=== PATIENT | female | born 1950 | race Caucasian/White ===

== ENCOUNTER 2021-08-30 08:01 | Inpatient (IN) ==
--- NOTE | 2021-08-23 15:58 | Anesthesiology Consultation ---
Date of Service August 23, 2021 Assessment & Plan (1) Encounter for pre-operative examination: - will attempt to obtain last cardio note. - surgical complication: hallucinations s/p right ankle reconstruction (possibly related to anesthesia vs pain medication) ~2006. - COVID screening: Per cnmt on 08/23/2021: Travel screen negative, no known COVID-19 positive contacts or current COVID-19 related symptoms in past 2 weeks. Patient vaccinated. Surgeon arranging preop COVID testing, scheduled /2021. Awaiting results. Chart Review Chart Review: Pending: Refer to Additional Notes / Consult section and Patient NOT seen in Pre Admission Testing History Surgery Operation Date: 08/30/21 07:15 Proposed Procedures p Left Ankle Posterior Tibial Tendon Reconstruction with Flexor Digitorum Longus Tendon Transfer - DO leslie Cassidy Medializing Calcaneal Osteotomy - DO leslie Cassidy Lateral Column Lengthening with Autograft, Percutaneous Tendon Achilles Lengthening, - DO leslie Cassidy Iliac Crest Autograft [place] - Ramez Austin DO Surgery re-scheduled since 01/2021 anesthesia review. Height/Weight Height: 5 ft 3 in Weight: 86.183 kg Allergies Allergy/AdvReac Type Severity Reaction Status Date / Time duloxetine AdvReac Intermediate Nausea & Verified 08/23/21 10:52 abdominal pain oxycodone AdvReac Intermediate abdominal Verified 08/23/21 10:52 pain Medications Home Medications Medication Instructions Recorded Confirmed Last Taken chlorthalidone 25 mg tablet 12.5 mg PO HS 01/25/21 08/23/21 Unknown cholecalciferol (vitamin D3) 25 25 mcg PO HS 01/25/21 08/23/21 Unknown mcg (1,000 unit) capsule (Vitamin D3) cyanocobalamin (vitamin B-12) See Rx Instructions .ROUTE .COMPLEX 01/25/21 08/23/21 Unknown 1,000 mcg/mL injection solution gabapentin 100 mg capsule 100 mg PO QAM 01/25/21 08/23/21 Unknown gabapentin 300 mg capsule 300 mg PO HS 01/25/21 08/23/21 Unknown loratadine 10 mg tablet 10 mg PO HS 01/25/21 08/23/21 Unknown losartan 50 mg tablet 50 mg PO HS 01/25/21 08/23/21 Unknown trazodone 150 mg tablet 150 mg PO HS PRN 01/25/21 08/23/21 Unknown Past Medical History Medical History Chronic back pain 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 Nausea and vomiting after administration of anesthetic agent Osteoarthritis Pancreatitis (~1994) idiopathic No issues since Peripheral neuropathy Bilateral feet Past Family History Family History Other No family history of adverse response to anesthesia Past Surgical History Surgical History History of ankle surgery right ankle reconstruction History of cataract surgery bilateral History of cholecystectomy History of colonoscopy History of esophagogastroduodenoscopy (EGD) History of repair of rotator cuff left Hx of lumpectomy benign (left) S/P epidural steroid injection Social History Smoking Status: Never smoker Do You Dip or Chew Tobacco: No Hx Alcohol Use: Yes Alcohol type: wine alcohol intake frequency: holidays/special occasions only Hx Substance Use: No substance use type: does not use Lab Results Anesthesia Preop Results Results Anesthesia Widget: WBC 11.53 K/uL (4.8-10.8) H 08/15/21 Hgb 13.1 g/dL (12.0-16.0) 08/15/21 Hct 38.6 % (37-47) 08/15/21 Plt 255 K/uL (130-400) 08/15/21 Na 140 mmol/L (136-145) 08/15/21 K 3.4 mmol/L (3.5-5.1) L 08/15/21 Cl 103 mmol/L (98-107) 08/15/21 CO2 26 mmol/L (21-32) 08/15/21 BUN 15 mg/dl (6-23) 08/15/21 Creat 0.78 mg/dl (0.6-1.2) 08/15/21 Glucose Level 141 mg/dl (70-99(Fasting)) H 08/15/21 PT 10.4 Seconds (9.0-12.0) 08/15/21 PTT 26.3 Seconds (21.0-31.0) 08/15/21 INR 1.0 (0.9-1.1) 08/15/21 Testing Electrocardiogram Date: 01/31/21 NSR, rate 65 bpm LBBB Chest X-Ray Date: 01/31/21 FINDINGS: No pneumothorax. No pleural effusions. No focal lung consolidations to suggest pneumonia. No evidence for pulmonary edema. The heart is normal in size. Prior cholecystectomy. IMPRESSION: No acute process. Stress Test Date: 08/19/19 Type: nuclear MPHR not listed. Indication for stress test is left bundle branch block. Myocardial perfusion imaging is normal. Myocardial ischemia absent. Myocardial infarction absent. EF 57%. Wall motion is abnormal, there is abnormal septal motion. Overall impression: Myocardial effusion scan reveals a largely fixed, defect involving the basal and mid septal wall this is likely to be secondary to the underlying left bundle branch block CAD cannot be completely excluded.
--- NOTE | 2021-08-29 17:03 | History & Physical Report ---
Date of Service August 29, 2021 Assessment & Plan (1) Posterior tibial tendon dysfunction, left: Plan: Schedule a Left Ankle Posterior Tibial Tendon Reconstruction with Flexor Digitorum Longus Tendon Transfer, Medializing Calcaneal Osteotomy, Lateral Column Lengthening with Autograft, Percutaneous Tendon Achilles Lengthening, Left Iliac Crest Autograft [place] for 08.30.21. All potential risks, benefits, complications, alternatives, and rehab have been discussed with the patient and she wishes to proceed. Plan for ASA 81 mg BID x 4 wks for post op DVT prophylaxis. (2) Left tibialis posterior tendinitis: (3) Acquired pes planovalgus of left foot: (4) Contracture of left Achilles tendon: History of Present Illness Chief Complaint: left ankle pain and flat foot Primary Care Provider: Srikanth Uzair This is a patient with a long hx of hindfoot pain and worsening flat foot. She was treated conservatively but has failed all conservative management. She is now being set up for surgical management. Allergies Allergy/AdvReac Type Severity Reaction Status Date / Time duloxetine AdvReac Intermediate Nausea & Verified 08/23/21 10:52 abdominal pain oxycodone AdvReac Intermediate abdominal Verified 08/23/21 10:52 pain Home Medications Medication Instructions Recorded Confirmed Type chlorthalidone 25 mg tablet 12.5 mg PO HS 01/25/21 08/23/21 History cholecalciferol (vitamin D3) 25 25 mcg PO HS 01/25/21 08/23/21 History mcg (1,000 unit) capsule (Vitamin D3) cyanocobalamin (vitamin B-12) See Rx Instructions .ROUTE .COMPLEX 01/25/21 08/23/21 History 1,000 mcg/mL injection solution gabapentin 100 mg capsule 100 mg PO QAM 01/25/21 08/23/21 History gabapentin 300 mg capsule 300 mg PO HS 01/25/21 08/23/21 History loratadine 10 mg tablet 10 mg PO HS 01/25/21 08/23/21 History losartan 50 mg tablet 50 mg PO HS 01/25/21 08/23/21 History trazodone 150 mg tablet 150 mg PO HS PRN 01/25/21 08/23/21 History Past Med/Surg History Medical History Chronic back pain 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 Nausea and vomiting after administration of anesthetic agent Osteoarthritis Pancreatitis (~1994) idiopathic No issues since Peripheral neuropathy Bilateral feet Surgical History History of ankle surgery right ankle reconstruction History of cataract surgery bilateral History of cholecystectomy History of colonoscopy History of esophagogastroduodenoscopy (EGD) History of repair of rotator cuff left Hx of lumpectomy benign (left) S/P epidural steroid injection Family History Other No family history of adverse response to anesthesia Social History Smoking Status: Never smoker Second Hand Exposure: Yes (hx); Hx Alcohol Use: Yes Alcohol type: wine Hx Substance Use: No Preferred Language: Turkish Communication Ability: Effective 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: No Beliefs That Will Affect Care: None Current Living Situation: Spouse Feels Safe at Home: Yes Assistive Devices: Denture - Upper and Glasses Physical Exam Constitutional: well developed and well nourished; no acute distress ENMT: external ear and nose normal, oropharynx normal Neck: trachea midline Respiratory: normal respiratory effort, lungs clear to auscultation Cardiovascular: Rate/Rhythm: regular rate and regular rhythm Gastrointestinal (Abdomen): normal bowel sounds, soft, nontender, no hepatosplenomegaly Musculoskeletal: Ankle: + deformity (left pes planovalgus deformity), + limited ROM of ankle (weakness left inversion) and + joint line tenderness (ankle) (left PTT, sinus tarsi); no skin erythema and no ecchymosis Skin: no rashes, warm and dry Neurologic: normal touch/pain/proprioception Psychiatric: A+Ox3, euthymic affect Speech: normal rate/rhythm/volume of speech Lymphatic: no cervical or axillary lymphadenopathy
[~2021-08-30 08:01] MED LIST: BUPIVACAINE 0.5 % 5 MG/1 ML MPF 30ML VIAL ONE; BUPIVACAINE 0.5 % 5 MG/1 ML PF 10ML VIAL ONE; LR 15ML/HR IV SCH; ceFAZolin 2000MG 2,000 MG/15 ML SYR IV SCH
[2021-08-30] MEDS ORDERED: PROMETHAZINE HCL 12.5 MG in SODIUM CHLORIDE 0.9% 50 ML IV PRN (09:34)
[2021-08-30] MEDS ORDERED: ONDANSETRON INJ 2 MG/ML 2 ML VIAL IV PRN (09:34)
[2021-08-30] MEDS ORDERED: ePHEDrine sulfate 50 MG/ML AMP IV PRN (09:34)
[2021-08-30] MEDS ORDERED: ATROPINE SULFATE 0.1 MG/ML 10ML SYR IV PRN (09:34)
[2021-08-30] MEDS ORDERED: HYDROmorphone INJ 2 MG/ML SYR/VIAL IV PRN (09:34)
[2021-08-30] MEDS ORDERED: PROPOFOL IV EMULSION 10 MG/ML 20 ML VIAL IV ONE (09:45)
[2021-08-30] MEDS ORDERED: ROCURONIUM BROMIDE 10 MG/ML 5 ML VIAL IV ONE (09:45)
[2021-08-30] MEDS ORDERED: LIDOCAINE 2% 2 ML VIAL/AMP(20MG/ML) INFIL ONE (09:45)
[2021-08-30] MEDS ORDERED: fentaNYL citrate 100 MCG/2 ML VIAL ONE (09:46)
[2021-08-30] MEDS ORDERED: MIDAZOLAM HCL 1 MG/ML 2ML VIAL ONE ×2 (09:46→10:41)
--- NOTE | 2021-08-30 10:30 | History & Physical Bridge Note ---
Date of Service August 30, 2021 History & Physical Bridge Note I have examined the patient, reviewed the History & Physical and in the interval since the performance of the History & Physical I have noted the following changes of clinical significance: no changes noted
[2021-08-30] MEDS ORDERED: MoRPHine SULFATE PF 1 MG/ML 10 ML AMP/VIAL ONE (11:18)
[2021-08-30] MEDS ORDERED: THROMBIN FOR SOLN 20000 UNIT KIT ONE (11:27)
[2021-08-30] MEDS ORDERED: ceFAZolin 330 MG/ML 1 GM VIAL ONE (11:27)
[2021-08-30] MEDS ORDERED: GELATIN SPONGE SZ 100 ONE (11:27)
[2021-08-30] MEDS ORDERED: BUPIVACAINE/EPINEPHRINE 0.25% 1:200,000 30 ML VIAL ONE (11:28)
[2021-08-30] MEDS ORDERED: GLYCOPYRROLATE 0.2 MG/ML VIAL ONE (13:41)
[2021-08-30] MEDS ORDERED: NEOSTIGMINE METHYLSULFATE 1 MG/ML 10ML VIAL ONE (13:41)
--- NOTE | 2021-08-30 14:14 | Post Operative Brief Note ---
Immediate Post Op Note v1 Date of Surgery August 30, 2021 Pre & Post Diagnosis Operation Date: 08/30/21 09:25 Pre-Op Diagnosis: (1) Posterior tibial tendon dysfunction, left: (2) Left tibialis posterior tendinitis: (3) Acquired painful pes planovalgus of left foot: (4) Contracture of left Achilles tendon: Post-Op Diagnosis: (1) Posterior tibial tendon dysfunction, left: (2) Left tibialis posterior tendinitis: (3) Acquired painful pes planovalgus of left foot: (4) Contracture of left Achilles tendon: I identified the patient and participated in the time-out.: Yes Procedure Operation Date: 08/30/21 09:25 Actual Procedures p Left Ankle Posterior Tibial Tendon Reconstruction with Flexor Digitorum Longus Tendon Transfer(Left) - DO leslie Cassidy Medializing Calcaneal Osteotomy(Left) - DO leslie Cassidy Lateral Column Lengthening with Autograft, Percutaneous Tendon Achilles Lengthening,(Left) - DO leslie Cassidy Iliac Crest Autograft [place](Left) - Ramez Austin DO Surgeon Ramez Austin DO Mobile Home Laborer Yong Valentin PA-C Estimated Blood Loss 2 Findings Consistent with Post-Op Diagnosis Anesthesia Type General Regional Complications none Disposition Accompanied Patient To Recovery: No
--- NOTE | 2021-08-30 14:27 | Fluoroscopy Report ---
FL ankle LT 2V CLINICAL HISTORY: LT CALCANEAL OSTEOTOMY COMPARISON STUDY: None. FLUOROSCOPY TIME: 13 seconds. FLUOROSCOPIC IMAGES: 2 FINDINGS: Fluoroscopy was provided during left calcaneal osteotomy with screw fixation. Expected post operative findings are noted. Skin allie are present. Hardware is intact. No unexpected radiopaque foreign bodies are identified. IMPRESSION: Fluoroscopy provided during left calcaneal osteotomy. ACT 112: Negative or not required by law. Electronically signed by: Jacob Castaneda M.D. 08/30/2021 2:25 PM
--- NOTE | 2021-08-30 14:48 | Operative Report (OR) ---
DATE OF PROCEDURE: 08/30/2021. PREOPERATIVE DIAGNOSES: 1. Left posterior tibial tendon dysfunction grade II. 2. Posterior tibial tendinitis. 3. Painful acquired pes planovalgus deformity. 4. Achilles tendon contracture. POSTOPERATIVE DIAGNOSES: 1. Left posterior tibial tendon dysfunction grade II. 2. Posterior tibial tendinitis. 3. Painful acquired pes planovalgus deformity. 4. Achilles tendon contracture. PROCEDURES: 1. Left posterior tibial tendon reconstruction with flexor digitorum longus tendon transfer. 2. Medialized and calcaneal osteotomy with screw fixation. 3. Lateral column calcaneal lengthening with autograft. 4. Percutaneous tendo-Achilles lengthening. 5. Left iliac crest autograft harvest. SURGEON: Ramez Austin DO AUTOMOTIVE ENGINEERING TECHNICIAN: Yong Valentin PA-C, who was present for patient positioning, sterile prep and drape, management of retractors and instruments. He was present through the critical portions of the case including wound closure, application of sterile dressing and transport of the patient to recovery. ANESTHESIA: General, regional. SPECIMENS: None. DRAINS: None. COMPLICATIONS: None. BLOOD LOSS: 2 mL. PERTINENT HISTORY: This is a 71-year-old female who has had chronic progressive and was worsening medial and lateral hindfoot pain with deformity. She had progressive chronic worsening deformity of the left foot with sharp medial-sided pain related to posterior tibial tendinitis with posterior tibial tendinopathy and partial tearing confirmed with x-rays and MRI noting posterior tibial tendinopathy with tearing and flattening of the medial arch. The patient attempted and failed conservative management including shoewear modification, activity modification, anti-inflammatories, rest, physical therapy, shoe modifications, use of a brace, and use of an assistive device. The patient failed physical therapy on several occasions. The patient was scheduled for surgery as indicated. All potential risks, benefits, complications, alternatives, rehab potential for incomplete relief of symptoms, need for further surgery, DVT, PE, , persistent pain, swelling, scarring, weakness, neurovascular injury, wound complications, hardware failure, nonunion, malunion and bone fracture were discussed with the patient. The patient decided to proceed with the procedure as indicated. DESCRIPTION OF PROCEDURE: The patient was taken to the operative suite. The consent was reviewed and surgical site was identified. The patient had undergone a popliteal block regional and then transferred to the Operating Room table. Tourniquet was placed high on the left thigh over cast padding. Left iliac crest and left lower extremity were then sterilely prepped and draped in usual fashion. The left lower extremity was then elevated and exsanguinated with Esmarch bandage, tourniquet inflated to 350 mmHg. Next, left foot was held in dorsiflexion. A 11 blade scalpel was used to perform a three part percutaneous tendo Achilles lengthening and then the small stab incisions were then closed with a skin stapler. Next, a 15 blade scalpel was used to make an incision in oblique fashion on the lateral aspect of the left calcaneus. The incision was deepened to subcutaneous tissue. Meticulous hemostasis with electrocautery. Full thickness flaps were developed. Next, periosteum was elevated with small periosteal elevator. Hohmann retractors were placed and a sagittal saw was used to perform the osteotomy in the posterior aspect of the calcaneus. Tuberosity was then shifted medially and then stabilized with a guide pin from the 7.3 mm cannulated screw set under fluoroscopic control. Next, a short thread 7.3 mm cannulated screw 55 mm in length was then placed over the guide pin and then used to compress the osteotomy under fluoroscopic control. Next, the guide pin was removed. The wound was irrigated with sterile Normal Saline and the dermis was closed using buried 3-0 Vicryl sutures and the skin was closed using 4-0 Nylon. Next, a 15 blade scalpel incision was made over the anterior process of the calcaneus and lateral calcaneus, the incision deepened through subcutaneous tissue, meticulous hemostasis with electrocautery. The extensor digitorum brevis was identified, incised and then elevated both superiorly and inferiorly. Peroneal tendon sheath was elevated and Hohmann retractors were placed in the sinus tarsi and then the inferior aspect of the calcaneus. A sagittal saw was used to make an osteotomy approximately 1.5 cm proximal to the calcaneal cuboid joint. Smooth osteotomes were placed into the osteotomy to open the osteotomy site and then a cervical lamina associate producer was placed in the opening. The opening of the calcaneal osteotomy was then measured and the cervical lamina associate producer was then removed from the osteotomy and a moist lap was placed over the foot. Next, after injection of the left iliac crest with approximately 15 mL of 0.5% Marcaine with Epinephrine a 15 blade scalpel incision was made over the iliac crest approximately 1 cm proximal to the ASIS. This was deepened to subcutaneous tissue with electrocautery down to the level of the fascia. Fascia was incised in line with the skin incision and then the iliac crest was clearly visualized, soft tissue and fascia was elevated medially and laterally. Small Bunn retractors were placed in the inner and outer table of the iliac crest. It was irrigated with sterile Normal Saline. Appropriate length of bone wedge was measured and marked with electrocautery and then a sagittal saw was used to resect the appropriate width trapezoidal tricortical graft from the pelvis. Next, after irrigation and suction the graft was then placed on the back table and a small amount of cancellous graft was excised from the iliac crest. The wound was then finally irrigated with Sterile Normal Saline. The defect in the iliac crest was then packed with Gelfoam and Thrombin. This was then closed with the fascia overlying the iliac crest with #1 Vicryl sutures. Next, this was injected with 1 mL of Duramorph and 5 mL of 0.5% Marcaine with Epinephrine. The dermis was closed using buried interrupted 2-0 Vicryl sutures and the skin was closed using skin allie. Approximately 5 more mL of 0.5% Marcaine with Epinephrine was injected. No oozing or bleeding was encountered and a sterile compressive dry dressing was applied overwrapped with an OpSite. Next, the graft was then placed in the lateral osteotomy of the foot to lengthen the lateral column using a cervical lamina associate producer to span the osteotomy. After the graft was tamped in place with a bone tamp and mallet the cervical lamina associate producer was removed. Next, the adjacent bone graft obtained from the iliac crest was then packed around the tricortical graft and then the graft was then stabilized with a single fully threaded 4.0 mm small fragment screw placed under lag technique compressing the graft in place. Next, the 2-0 Vicryl suture was used to close the extensor digitorum brevis and the dermis was closed using buried interrupted 3-0 Vicryl. Skin was closed using 4-0 Nylon sutures. Next, a 15 blade scalpel was used to make a long curvilinear incision along the medial aspect of the hind foot overlying the posterior tibial tendon. The incision was deepened to subcutaneous tissue. Meticulous hemostasis achieved with electrocautery. The incision was extended to the first metatarsal head. Next, after incision of the lacinate ligament the flexor retinaculum was encountered. This was incised in line with skin incision overlying the posterior tibial tendon. The posterior tibial tendon was clearly visualized. Tenotomy scissors were then used to complete the release of the flexor retinaculum and the posterior tibial tendon was then elevated sharply with combination of electrocautery and 15 blade scalpel from its insertion on the navicular. The damaged portion of the tendon distally was then resected and then a whip stitch was placed with #2 FiberWire suture in the distal aspect of the posterior tibial tendon. Next, dissection was continued in the mid foot in the interval between the first metatarsal and the abductor hallucis. A Ulysses retractor was placed in the wound and then after careful dissection the master knot of Urbano was released and the flexor digitorum longus and flexor hallucis longus were clearly visualized distally. Tenodesis was performed with interrupted #2 FiberWire suture with toes held in neutral alignment in line with the metatarsals. Next, a whip stitch was placed in the distal aspect of the FDL tendon and then the FDL was then released distally to allow it to be retracted proximally posterior to the medial malleolus after a small cut was made in the FDL sheath posterior to the medial malleolus. After the tendon was withdrawn posteriorly, the soft tissues were elevated from the medial navicular and a 4.5 mm drill hole was made in the medial navicular. A Hayden suture passer was used to transfer the tendon from the plantar to the dorsal aspect of the navicular. It was then sutured back down to itself using a sharp tendon passer and a Pulvertaft weave technique with #2 fiber wire suture. Several passes were made and then this was then incorporated into the posterior tibial tendon. Next, free needle was used to tie the ends of the posterior tibial tendon and FDL tendon into the adjacent tendons. Sutures were then tied and cut. The wound was irrigated with Sterile Normal Saline. Deep drain was placed, a #10 [place] single Hemovac drain medially and then the flexor sheath was closed using interrupted 2-0 Vicryl sutures. The interval between the first metatarsal and the abductors were closed using interrupted 2-0 Vicryl sutures. The dermis was closed using buried interrupted 3-0 Vicryl suture and skin closed with 4-0 Nylon. A sterile compressive [place] Guerrero plaster splint was applied and wrapped with an Kirt wrap with the foot held in slight equinus and inversion. The tourniquet was released, patient awakened and taken to recovery in stable condition. Job ID: [id number] [facility]
[2021-08-30] MEDS: fentaNYL citrate 100 MCG/2 ML VIAL IV PRN ×4 (14:55→15:15)
[2021-08-30] MEDS ORDERED: NALOXONE HCL 0.4 MG/1 ML VIAL/CARP IV PRN (15:53)
[2021-08-30] MEDS ORDERED: diphenhydrAMINE Capsule 25 MG CAP PO PRN (15:53)
[2021-08-30] MEDS ORDERED: METOCLOPRAMIDE HCL INJ 5 MG/ML 2 ML VIAL IV PRN (15:53)
[2021-08-30] MEDS ORDERED: ALUMINUM/MAGNESIUM SUSP 30 ML UDC PO PRN (15:53)
[2021-08-30] MEDS ORDERED: NO NSAIDS SCH (15:53)
[2021-08-30] MEDS ORDERED: MAGNESIUM HYDROXIDE SUSP 30 ML UDC PO PRN (15:53)
[2021-08-30] MEDS ORDERED: oxyCODONE HCL IR 5 MG TAB (IMMEDIATE RELEASE) PO PRN (15:53)
[2021-08-30] MEDS ORDERED: bisacodyL 10 MG SUPP PR PRN (15:53)
[2021-08-30] MEDS ORDERED: traZODone HCL 50 MG TAB PO PRN (15:53)
--- NOTE | 2021-08-30 16:05 | Anesthesiology Progress Note ---
Date of Service August 30, 2021 Anesthesia Post Procedure Vital Signs Vital Signs: Temp Pulse Pulse Resp BP Pulse Ox 08/30/21 15:30 36.4 C L 70 16 126/85 96 08/30/21 15:20 36.4 C L 77 14 125/74 97 08/30/21 15:10 57 L 11 L 124/74 98 08/30/21 15:00 71 15 150/75 H 100 08/30/21 14:50 75 15 117/76 100 08/30/21 14:40 73 16 156/90 H 100 08/30/21 14:33 36.3 C L 75 16 149/90 H 100 08/30/21 08:29 37.1 C 85 20 148/83 H 98 Pain Intensity Left Hip: Pain Intensity: 3 Transfer of Care Handoff Completed per policy Notes Mental Status: alert / awake / arousable and participated in evaluation Patient Amnestic to Procedure: Yes Nausea / Vomiting: adequately controlled Pain: adequately controlled Airway Patency, RR, SpO2: stable & adequate BP & HR: stable & adequate Hydration State: stable & adequate Anesthetic Complications: no major complications apparent and Pt Satisfied with anesthetic care
[2021-08-30] MEDS: SODIUM CHLORIDE 0.9% 1000ML 1,000 ML IV SCH (16:11)
[2021-08-30] MEDS: ACETAMINOPHEN 500 MG TAB PO SCH ×2 (16:29→23:43)
[2021-08-30] MEDS: HYDROmorphone INJ 0.5 MG/0.5 ML SYR IV PRN (16:40)
[2021-08-30] MEDS: ceFAZolin 2000MG 2,000 MG/15 ML SYR IV SCH (19:58)
[2021-08-30] MEDS: ONDANSETRON INJ 2 MG/ML 2 ML VIAL IV PRN (20:05)
[2021-08-30] MEDS: LOSARTAN POTASSIUM 50 MG TAB PO SCH (20:50)
[2021-08-30] MEDS: CHOLECALCIFEROL 1,000 UNITS 25 MCG TAB PO SCH (20:51)
[2021-08-30] MEDS: ASPIRIN 81 MG ECTAB PO SCH (20:51)
[2021-08-30] MEDS: LORATADINE 10 MG TAB PO SCH (20:51)
[2021-08-30] MEDS: SENNA 8.6 MG TAB PO SCH (20:51)
[2021-08-30] MEDS: GABAPENTIN 300 MG CAP PO SCH (20:51)
[2021-08-30] MEDS: DOCUSATE SODIUM 100 MG CAP PO SCH (20:51)
[2021-08-30] MEDS: HYDROCODONE/ACETAMOPHEN 5/325MG TAB PO PRN (20:53)
[2021-08-30] MEDS: CHLORTHALIDONE 25 MG TAB PO SCH (20:56)
[2021-08-31] MEDS: SODIUM CHLORIDE 0.9% 1000ML 1,000 ML IV SCH (02:24)
[2021-08-31] MEDS: ceFAZolin 2000MG 2,000 MG/15 ML SYR IV SCH (03:31)
[2021-08-31] MEDS: HYDROCODONE/ACETAMOPHEN 5/325MG TAB PO PRN ×3 (03:34→20:22)
[2021-08-31] MEDS: ACETAMINOPHEN 500 MG TAB PO SCH ×3 (06:03→23:18)
[2021-08-31 07:30] LABS: Hematocrit (blood only) 34.6 % (37-47); Hemoglobin 11.6 g/dL (12.0-16.0); Mean Corpuscular Hgb Conc 33.5 g/dL (32-36); Mean Corpuscular Volume 92.5 fL (80-100); Mean Platelet Volume 10.1 fL (7.4-10.4); Platelet Count 226 K/uL (130-400); RDW Coefficient of Variation 14.3 % (11.5-14.5); RDW Standard Deviation 48.2 fL (36.4-46.3); Red Blood Count 3.74 M/uL (4.2-5.4); White Blood Count 13.69 K/uL (4.8-10.8)
[2021-08-31 08:06] LABS: BUN Creatinine Ratio 14.9 (10-20); Calcium 8.9 mg/dl (8.5-10.1); Creatinine Clr Calc Pharmacy 74.1 ml/min; Est GFR (African American) 95.1 ml/min; Est GFR (Non-African American) 82.1 ml/min; Potassium 3.7 mmol/L (3.5-5.1)
--- NOTE | 2021-08-31 08:30 | Orthopedic Progress Note ---
Date of Service August 31, 2021 Assessment & Plan (1) Posterior tibial tendon dysfunction, left: Plan: POD #1 s/p 1. Left posterior tibial tendon reconstruction with flexor digitorum longus tendon transfer. 2. Medialized and calcaneal osteotomy with screw fixation. 3. Lateral column calcaneal lengthening with autograft. 4. Percutaneous tendo-Achilles lengthening. 5. Left iliac crest autograft harvest PT/OT--nonweightbearing on the left lower extremity at all times. Pain controlIV Dilaudid for more severe pain, oral hydrocodone/Tylenol as needed. DVT prophylaxisaspirin 81 mg twice daily, knee-high Roberto stocking on the right lower extremity. Discharge planningthe patient has concerns of going home without any help. Her is in his late 70s and her daughter is now helping to help her father who is hospitalized. She would benefit from home health. If she does well with PT and her left pelvis pain improves, she may be able to be discharged home today with home health. (2) Left tibialis posterior tendinitis: (3) Acquired pes planovalgus of left foot: (4) Contracture of left Achilles tendon: Admission and Anticipated Discharge Date Admission Date: August 30, 2021 Subjective Patient states her left ankle still numb. No pain within the ankle or lower leg. Most of her pain last night and this morning has been in her left pelvis. She is having difficulties with shifting positions because of the left pelvis/abdominal pain. Denies chest pain, shortness of breath, lightheadedness. No other complaints today. Physical Exam Constitutional: well developed and well nourished; no acute distress ENMT: external ear and nose normal, oropharynx normal Neck: trachea midline Respiratory: normal respiratory effort, lungs clear to auscultation Cardiovascular: Rate/Rhythm: regular rate and regular rhythm Gastrointestinal (Abdomen): normal bowel sounds, soft, nontender, no hepatosplenomegaly Musculoskeletal: Hip: + surgical incision (Left pelvis: Dressing is C/D/I. Her abdomen is soft. No evidence of hemat) Ankle: + surgical incision (Left ankle: Well-padded splint is C/D/I) and + limited ROM of ankle (No range of motion of left toes secondary to regional block); no skin erythema and no ecchymosis Skin: no rashes, warm and dry Neurologic: normal touch/pain/proprioception Psychiatric: A+Ox3, euthymic affect Speech: normal rate/rhythm/volume of speech Lymphatic: no cervical or axillary lymphadenopathy Results & Data ([facility]) Vital Signs (Past 12 Hours) Vital Signs Temp Pulse Resp BP Pulse Ox 08/31/21 07:00 36.9 C 75 18 117/74 92 08/31/21 03:18 37.2 C 81 18 120/73 93 08/30/21 22:42 37.2 C 80 18 126/83 92 Laboratory Results Laboratory Tests 08/31/21 08/31/21 07:12 07:12 WBC 13.69 H Hgb 11.6 L Hct 34.6 L Sodium 140 Potassium 3.7 BUN 11 Creatinine 0.74
[2021-08-31] MEDS: MULTIVITAMIN TAB PO SCH (09:32)
[2021-08-31] MEDS: ASPIRIN 81 MG ECTAB PO SCH ×2 (09:32→21:13)
[2021-08-31] MEDS: DOCUSATE SODIUM 100 MG CAP PO SCH ×2 (09:32→21:14)
[2021-08-31] MEDS: GABAPENTIN 100 MG CAP PO SCH (09:33)
[2021-08-31] MEDS: HYDROmorphone INJ 0.5 MG/0.5 ML SYR IV PRN ×4 (11:20→23:46)
[2021-08-31] MEDS: ONDANSETRON INJ 2 MG/ML 2 ML VIAL IV PRN (17:57)
[2021-08-31] MEDS: LORATADINE 10 MG TAB PO SCH (21:13)
[2021-08-31] MEDS: GABAPENTIN 300 MG CAP PO SCH (21:14)
[2021-08-31] MEDS: CHLORTHALIDONE 25 MG TAB PO SCH (21:14)
[2021-08-31] MEDS: CHOLECALCIFEROL 1,000 UNITS 25 MCG TAB PO SCH (21:14)
[2021-08-31] MEDS: SENNA 8.6 MG TAB PO SCH (21:15)
[2021-08-31] MEDS: LOSARTAN POTASSIUM 50 MG TAB PO SCH (21:15)
[2021-09-01] MEDS ORDERED: KETOROLAC TROMETHAMINE 15 MG/ML VIAL IM STA (00:21)
[2021-09-01] MEDS ORDERED: HYDROCODONE/ACETAMOPHEN 5/325MG TAB PO STA (00:22)
[2021-09-01] MEDS: ACETAMINOPHEN 500 MG TAB PO SCH ×3 (06:13→21:27)
[2021-09-01] MEDS: HYDROmorphone INJ 0.5 MG/0.5 ML SYR IV PRN ×2 (06:15→17:13)
--- NOTE | 2021-09-01 08:47 | Orthopedic Progress Note ---
Date of Service September 01, 2021 Assessment & Plan (1) Posterior tibial tendon dysfunction, left: Plan: POD #2 s/p 1. Left posterior tibial tendon reconstruction with flexor digitorum longus tendon transfer. 2. Medialized and calcaneal osteotomy with screw fixation. 3. Lateral column calcaneal lengthening with autograft. 4. Percutaneous tendo-Achilles lengthening. 5. Left iliac crest autograft harvest PT/OT--nonweightbearing on the left lower extremity at all times. Pain controlIV Dilaudid for more severe pain, oral hydrocodone/Tylenol as needed. We will add oral MS Contin today. DVT prophylaxisaspirin 81 mg twice daily, knee-high Roberto stocking on the right lower extremity. Discharge planninghome with home health. If pain remained controlled throughout the morning, she may be able to be discharged this afternoon. (2) Left tibialis posterior tendinitis: (3) Acquired pes planovalgus of left foot: (4) Contracture of left Achilles tendon: Admission and Anticipated Discharge Date Admission Date: August 30, 2021 Subjective Patient states she had a lot of pain last night. She was unable to get it controlled with oral medication. She had IM Toradol last night and states that the pain started to come down approximately 2:30 this morning. She was able to rest until approximately 6 AM. She started to have some pain in the foot again this morning. Physical Exam Constitutional: well developed and well nourished; no acute distress ENMT: external ear and nose normal, oropharynx normal Neck: trachea midline Respiratory: normal respiratory effort, lungs clear to auscultation Cardiovascular: Rate/Rhythm: regular rate and regular rhythm Gastrointestinal (Abdomen): normal bowel sounds, soft, nontender, no hepatosplenomegaly Musculoskeletal: Hip: + surgical incision (Left pelvis: Dressing is C/D/I. Her abdomen is soft. No evidence of hemat) Ankle: + surgical incision (Left ankle: Well-padded splint is C/D/I) and + limited ROM of ankle (No range of motion of left toes secondary to regional block); no skin erythema and no ecchymosis Skin: no rashes, warm and dry Neurologic: normal touch/pain/proprioception Psychiatric: A+Ox3, euthymic affect Speech: normal rate/rhythm/volume of speech Lymphatic: no cervical or axillary lymphadenopathy Results & Data ([facility]) Vital Signs (Past 12 Hours) Vital Signs Temp Pulse Pulse Resp BP Pulse Ox 09/01/21 07:40 36.9 C 81 16 130/76 93 08/31/21 23:23 37.1 C 99 H 18 142/71 H 96
[2021-09-01] MEDS: MoRPHine SULFATE CR 15 MG TABCR PO SCH ×2 (09:18→21:26)
[2021-09-01] MEDS: MULTIVITAMIN TAB PO SCH (09:18)
[2021-09-01] MEDS: ASPIRIN 81 MG ECTAB PO SCH ×2 (09:18→21:21)
[2021-09-01] MEDS: DOCUSATE SODIUM 100 MG CAP PO SCH ×2 (09:18→21:21)
[2021-09-01] MEDS: GABAPENTIN 100 MG CAP PO SCH (09:18)
[2021-09-01] MEDS: ONDANSETRON INJ 2 MG/ML 2 ML VIAL IV PRN (11:13)
[2021-09-01] MEDS: HYDROCODONE/ACETAMOPHEN 5/325MG TAB PO PRN ×2 (14:47→20:02)
[2021-09-01] MEDS: LORATADINE 10 MG TAB PO SCH (21:20)
[2021-09-01] MEDS: CHLORTHALIDONE 25 MG TAB PO SCH (21:20)
[2021-09-01] MEDS: SENNA 8.6 MG TAB PO SCH (21:21)
[2021-09-01] MEDS: CHOLECALCIFEROL 1,000 UNITS 25 MCG TAB PO SCH (21:22)
[2021-09-01] MEDS: GABAPENTIN 300 MG CAP PO SCH (21:22)
[2021-09-01] MEDS: LOSARTAN POTASSIUM 50 MG TAB PO SCH (21:23)
[2021-09-02] MEDS: HYDROCODONE/ACETAMOPHEN 5/325MG TAB PO PRN ×3 (02:58→22:49)
[2021-09-02] MEDS: ACETAMINOPHEN 500 MG TAB PO SCH ×3 (05:50→22:49)
[2021-09-02] MEDS: GABAPENTIN 100 MG CAP PO SCH (08:21)
[2021-09-02] MEDS: DOCUSATE SODIUM 100 MG CAP PO SCH ×2 (08:21→20:54)
[2021-09-02] MEDS: MoRPHine SULFATE CR 15 MG TABCR PO SCH ×2 (08:21→20:54)
[2021-09-02] MEDS: ASPIRIN 81 MG ECTAB PO SCH ×2 (08:22→20:54)
--- NOTE | 2021-09-02 08:50 | Orthopedic Progress Note ---
Date of Service September 02, 2021 Assessment & Plan (1) Posterior tibial tendon dysfunction, left: Plan: POD #3 s/p 1. Left posterior tibial tendon reconstruction with flexor digitorum longus tendon transfer. 2. Medialized and calcaneal osteotomy with screw fixation. 3. Lateral column calcaneal lengthening with autograft. 4. Percutaneous tendo-Achilles lengthening. 5. Left iliac crest autograft harvest PT/OT--nonweightbearing on the left lower extremity at all times. Pain controlIV Dilaudid for more severe pain, oral hydrocodone/Tylenol as needed. Oral MS Contin was added yesterday. DVT prophylaxisaspirin 81 mg twice daily, knee-high Roberto stocking on the right lower extremity. Discharge planninghome with home health. Likely plan on discharge home tomorrow. (2) Left tibialis posterior tendinitis: (3) Acquired pes planovalgus of left foot: (4) Contracture of left Achilles tendon: Admission and Anticipated Discharge Date Admission Date: August 30, 2021 Supervising Physician Co-Signing Physician Notes Patient seen and examined. Agree with ORACIO Paiz's note as above. She reports progressive improvement in her pain, but still feels like she is not ready to go home. Subjective Patient is postop day 3. Pain yesterday. Her pain seems to be improved from yesterday and had a better night than the night before. She is concerned about going home today. Therapy saw her yesterday and is recommending patient rehab however patient desires to go home. Review of Systems Review of Systems: All systems reviewed & are unremarkable except as noted in Subjective Physical Exam Physical Exam: Left leg: dressings and splint are clean dry and intact. Toes are mobile. No calf tenderness. Distally neurovascular status intact. Cap refill less than 3 seconds. She has decreased sensation at her baseline due to history of neuropathy. Constitutional: WD/WN, vitals as above Results & Data ([facility]) Vital Signs (Past 12 Hours) Vital Signs Temp Pulse Resp BP Pulse Ox 09/02/21 08:09 36.6 C 72 17 115/74 92 09/01/21 22:34 36.7 C 69 15 116/75 93 09/01/21 21:18 80 114/75
[2021-09-02] MEDS: MULTIVITAMIN TAB PO SCH (09:21)
[2021-09-02] MEDS: ONDANSETRON INJ 2 MG/ML 2 ML VIAL IV PRN (09:42)
[2021-09-02] MEDS: LORATADINE 10 MG TAB PO SCH (20:54)
[2021-09-02] MEDS: GABAPENTIN 300 MG CAP PO SCH (20:54)
[2021-09-02] MEDS: CHOLECALCIFEROL 1,000 UNITS 25 MCG TAB PO SCH (20:54)
[2021-09-02] MEDS: LOSARTAN POTASSIUM 50 MG TAB PO SCH (20:54)
[2021-09-02] MEDS: SENNA 8.6 MG TAB PO SCH (20:54)
[2021-09-02] MEDS: CHLORTHALIDONE 25 MG TAB PO SCH (20:54)
[2021-09-03] MEDS ORDERED: MoRPHine SULFATE CR 15 MG TABCR PO SCH
[2021-09-03] MEDS ORDERED: NORCO 5/325MG HOMEPACK PO SCH
[2021-09-03] MEDS: ACETAMINOPHEN 500 MG TAB PO SCH ×2 (06:03→13:01)
[2021-09-03] MEDS: ASPIRIN 81 MG ECTAB PO SCH (07:46)
[2021-09-03] MEDS: DOCUSATE SODIUM 100 MG CAP PO SCH (07:47)
[2021-09-03] MEDS: MULTIVITAMIN TAB PO SCH (07:47)
[2021-09-03] MEDS: MoRPHine SULFATE CR 15 MG TABCR PO SCH (07:47)
[2021-09-03] MEDS: GABAPENTIN 100 MG CAP PO SCH (07:47)
--- NOTE | 2021-09-03 10:11 | Orthopedic Progress Note ---
Date of Service September 03, 2021 Assessment & Plan (1) Posterior tibial tendon dysfunction, left: Plan: POD #4 s/p 1. Left posterior tibial tendon reconstruction with flexor digitorum longus tendon transfer. 2. Medialized and calcaneal osteotomy with screw fixation. 3. Lateral column calcaneal lengthening with autograft. 4. Percutaneous tendo-Achilles lengthening. 5. Left iliac crest autograft harvest PT/OT--nonweightbearing on the left lower extremity at all times. Pain controlIV Dilaudid for more severe pain, oral hydrocodone/Tylenol as needed. Oral MS Contin was added yesterday. DVT prophylaxisaspirin 81 mg twice daily, knee-high Roberto stocking on the right lower extremity. Discharge planninghome with home health. Will see how she responds to therapy today, if safe to go home plan on d/c home today. (2) Left tibialis posterior tendinitis: (3) Acquired pes planovalgus of left foot: (4) Contracture of left Achilles tendon: Admission and Anticipated Discharge Date Admission Date: September 02, 2021 Subjective Patient is postop day 4. Her pain seems to be improving. States has a lot of pain when leg is in dependent position. Therapy has recommending inpatient rehab however patient refusing and wants to go home due to her being home. She has intermittent nausea, otherwise denies chest pain, sob, headache, fever/chills, vomiting, diarrhea. Review of Systems Review of Systems: All systems reviewed & are unremarkable except as noted in Subjective Physical Exam Physical Exam: Left leg: dressings and splint are clean dry and intact. Toes are mobile. No calf tenderness. Distally neurovascular status intact. Cap refill less than 3 seconds. She has decreased sensation at her baseline due to history of neuropathy. Left hip incision c/d/i, no erythema. Constitutional: WD/WN, vitals as above Results & Data ([facility]) Vital Signs (Past 12 Hours) Vital Signs Temp Pulse Resp BP Pulse Ox 09/03/21 07:33 36.7 C 72 16 107/72 97 09/02/21 22:38 37.0 C 78 15 123/77 91
[2021-09-03] MEDS: HYDROCODONE/ACETAMOPHEN 5/325MG TAB PO PRN ×2 (11:51→16:10)
--- NOTE | 2021-09-06 16:52 | Discharge Summary ---
Date of Service September 06, 2021 Admission HPI Per Admitting Provider This is a patient with a long hx of hindfoot pain and worsening flat foot. She was treated conservatively but has failed all conservative management. She is now being set up for surgical management. Principal Diagnosis left posterior tibial tendon dysfunction Discharge Exam Constitutional well developed and well nourished; no acute distress ENMT external ear and nose normal, oropharynx normal Neck trachea midline Respiratory normal respiratory effort, lungs clear to auscultation Cardiovascular Rate/Rhythm: regular rate and regular rhythm Gastrointestinal (Abdomen) normal bowel sounds, soft, nontender, no hepatosplenomegaly Musculoskeletal Hip: + surgical incision (Left pelvis: Dressing is C/D/I. Her abdomen is soft. No evidence of hemat) Ankle: + surgical incision (Left ankle: Well-padded splint is C/D/I) and + limited ROM of ankle (No range of motion of left toes secondary to regional block); no skin erythema and no ecchymosis Skin no rashes, warm and dry Neurologic normal touch/pain/proprioception Psychiatric A+Ox3, euthymic affect Speech: normal rate/rhythm/volume of speech Lymphatic no cervical or axillary lymphadenopathy Discharge Data Allergies Allergy/AdvReac Type Severity Reaction Status Date / Time duloxetine AdvReac Intermediate Nausea & Verified 08/30/21 08:25 abdominal pain oxycodone AdvReac Intermediate abdominal Verified 08/30/21 08:25 pain Procedures Performed Operation Date: 08/30/21 09:25 Actual Procedures p Left Ankle Posterior Tibial Tendon Reconstruction with Flexor Digitorum Longus Tendon Transfer(Left) - DO leslie Cassidy Medializing Calcaneal Osteotomy(Left) - DO leslie Cassidy Lateral Column Lengthening with Autograft, Percutaneous Tendon Achilles Lengthening,(Left) - DO leslie Cassidy Iliac Crest Autograft [place](Left) - Ramez Austin DO Ordered Studies 08/30/21 05:00 US - OR guided needle placemen Routine 08/30/21 09:25 FL ankle LT 2V Routine Hospital Course (1) Posterior tibial tendon dysfunction, left: POD #4 s/p 1. Left posterior tibial tendon reconstruction with flexor digitorum longus tendon transfer. 2. Medialized and calcaneal osteotomy with screw fixation. 3. Lateral column calcaneal lengthening with autograft. 4. Percutaneous tendo-Achilles lengthening. 5. Left iliac crest autograft harvest PT/OT--nonweightbearing on the left lower extremity at all times. Pain controlIV Dilaudid for more severe pain, oral hydrocodone/Tylenol as needed. Oral MS Contin was added yesterday. DVT prophylaxisaspirin 81 mg twice daily, knee-high Roberto stocking on the right lower extremity. Discharge planninghome with home health. Will see how she responds to therapy today, if safe to go home plan on d/c home today. (2) Left tibialis posterior tendinitis: (3) Acquired pes planovalgus of left foot: (4) Contracture of left Achilles tendon: Total Time Total Time Spent Total Time Spent (In Minutes): 90 Discharge Plan Discharge Items Patient Disposition: Home - Home Health Services Reason For Visit: Left Ankle Posterior Tibiais Tendon Tear, Posterio Discharge Diagnosis: Left posterior tibialis tendon tear Activity: Per Instructions section Weightbearing: Left non-weightbearing Non-emergency contact: Surgeon Call non-emergency contact if: you have any medication questions, your pain is not controlled, your pain is worsening, you have a fever, your temperature is above 101, your wound has increased redness and your wound has increased drainage Follow-up/Referrals: Srikanth Dunne [Primary Care Provider] - Diet: Regular Addtl Attending Provider Instructions: ACTIVITY RECOMMENDATIONS: Limitations: No weight bearing to affected limb at all times. SPECIAL CARE INSTRUCTIONS: * Take Aspirin 81 mg every 12 hours for 4 weeks for postoperative blood clot prophylaxis. * Some drainage onto the dressing is normal and is no cause for alarm. * Some swelling is natural especially after walking. * When resting, keep your foot elevated above the level of your heart. * Call [facility] if you notice: -Increased drainage -Fever over 101 degrees F -Severe constant pain BANDAGE: * Leave bandage/cast in place unless otherwise directed. * Keep bandage/cast dry at all times. FOLLOW UP VISIT WITH DR. AUSTIN If appointment is not already scheduled: Please call [facility] after you get home today to schedule a follow-up appointment for [address] Austin at . Pending Studies at Discharge: No Stand-Alone Forms: [employer], Smoking Cessation Medications and DC Order Prescriptions: New aspirin 81 mg Tablet,Delayed Release (Dr/Ec) 81 mg PO BID Qty: 60 RF: 0 hydrocodone-acetaminophen 5-325 mg Tablet 1 tab PO Q4H PRN (Reason: pain) Qty: 20 RF: 0 morphine 15 mg Tablet Extended Release 15 mg PO Q12H Qty: 6 RF: 0 naloxone [Narcan] 4 mg/actuation spray,non-aerosol 1 spray intranasal ONCE PRN (Reason: opioid overdose) Qty: 2 RF: 0 Continued losartan 50 mg Tablet 50 mg PO HS RF: 0 chlorthalidone 25 mg Tablet 12.5 mg PO HS RF: 0 cyanocobalamin (vitamin B-12) 1,000 mcg/mL Solution See Rx Instructions .ROUTE .COMPLEX RF: 0 gabapentin 300 mg Capsule 300 mg PO HS RF: 0 gabapentin 100 mg Capsule 100 mg PO QAM RF: 0 loratadine 10 mg Tablet 10 mg PO HS RF: 0 cholecalciferol (vitamin D3) [Vitamin D3] 25 mcg (1,000 unit) Capsule 25 mcg PO HS RF: 0 trazodone 150 mg Tablet 150 mg PO HS PRN (Reason: Sleep) RF: 0 Discharge Orders: Discharge Order (Routine); Ordered 09/03/21 Ordered By: Yovani Paiz Admission Data Admit Date/Time: 09/02/21 14:19 Attending Provider: Ramez Austin Admit Provider: Ramez Austin Primary Care Provider: Srikanth Dunne Other Providers: Keenan Enamorado [facility] Other Interventions: Discharge Summary Assessment (RN) Last Done: 09/03/21 11:15
[2021-09-10] MEDS ORDERED: CYANOCOBALAMIN 1000 MCG/ML VIAL IM SCH (09:00)
== END 2021-09-03 18:17 | disposition home health service (06) | DRG 502 ==
LOC: ASU 08:01 → 3W 08:01
DX: I10 Essential (primary) hypertension; M76.822 Posterior tibial tendinitis, left leg; M21.42 Flat foot [pes planus] (acquired), left foot; Z79.899 Other long term (current) drug therapy; I44.7 Left bundle-branch block, unspecified; Z88.5 Allergy status to narcotic agent; Z20.822 Contact with and (suspected) exposure to COVID-19; M67.02 Short Achilles tendon (acquired), left ankle; Z88.8 Allergy status to other drugs, medicaments and biological substances

== ENCOUNTER 2024-08-13 20:26 | Inpatient (IN) ==
[2024-08-13] MEDS: ONDANSETRON INJ 2 MG/ML 2 ML VIAL IV STA (21:08)
[2024-08-13] MEDS: SODIUM CHLORIDE 0.9% 500 ML IV ONE (21:09)
[2024-08-13] MEDS: HYDROmorphone INJ 0.5 MG/0.5 ML SYR IV PRN (21:09)
[2024-08-13 21:12] LABS: Basophils # (auto) 0.03 K/uL (0.00-0.20); Basophils % (auto) 0.2 %; Eosinophils # (auto) 0.02 K/uL (0.00-0.50); Eosinophils % (auto) 0.1 %; Hematocrit (blood only) 39.8 % (37.0-47.0); Hemoglobin 13.7 g/dl (12.0-16.0); Immature Granulocytes # (auto) 0.08 K/uL (0.01-0.20); Immature Granulocytes % (auto) 0.4 %; Lymphocytes # (auto) 2.64 K/uL (1.20-3.40); Lymphocytes % (auto) 14.1 %; Mean Corpuscular Hgb Conc 34.4 g/dL (32.0-36.0); Mean Corpuscular Volume 87.1 fL (80.0-100.0); Mean Platelet Volume 10.3 fL (9.4-12.4); Monocytes # (auto) 0.96 K/uL (0.11-0.59); Monocytes % (auto) 5.1 %; Neutrophils # (auto) 14.96 K/uL (1.40-6.50); Neutrophils % (auto) 80.1 %; Platelet Count 237 K/uL (130-400); RDW Coefficient of Variation 13.1 % (11.5-14.5); RDW Standard Deviation 41.3 fL (36.4-46.3); Red Blood Count 4.57 M/uL (4.20-5.40); White Blood Count 18.69 K/ul (4.8-10.8)
[2024-08-13 21:18] LABS: BUN Creatinine Ratio 22.4 (10-20); Calcium 9.3 mg/dl (8.6-10.3); Creatinine Clr Calc Pharmacy 60.6 ml/min; Potassium 2.9 mmol/L (3.5-5.1)
[2024-08-13 21:24] LABS: Troponin I High Sensitivity 5.5 pg/ml (0-14)
[2024-08-13] MEDS: OPTIRAY 320 100ml IV ONE (21:55)
[2024-08-13 22:01] LABS: Albumin Globulin Ratio 1.7 (0.9-2); Albumin Level 4.5 gm/dl (3.4-5.0); Bilirubin,Total 1.3 mg/dl (0.2-1.0); Globulin 2.6 gm/dl (2.5-4.0); Total Protein 7.1 gm/dl (6.0-8.3)
[2024-08-13] MEDS: SODIUM CHLORIDE 0.9% 1,000 ML IV SCH (22:16)
[2024-08-13] MEDS: POTASSIUM CHLORIDE / WTR 10 MEQ/100 ML PLCT IV ONE (22:16)
--- NOTE | 2024-08-13 22:41 | Emergency Department Note ---
Impression & Plan Pancreatitis, Acute upper abdominal pain ED Provider Note NAME: PATRICK HERNANDEZ AGE: 74 SEX: Female INFORMANT: Patient and family ED PROVIDER(S): Yovani Haynes MD CHIEF COMPLAINT: Abdominal pain PLAN: Disposition: Admitted Outpatient prescription management: none Referral: None MEDICAL DECISION MAKING: Patient presented because of acute abdominal pain. She had a history of pancreatitis. She had an IV established prehospital and did not have any relief with fentanyl. She was given Dilaudid and Zofran here. IV fluids were initiated. On reassessment the patient was feeling better but still noted pain. Her CBC showed a significant leukocytosis. Patient had a marked elevation of her lipase. CT imaging of the abdomen pelvis was performed. Significant inflammatory change noted around the pancreas. ECG was unremarkable and cardiac troponin negative. Patient had mildly low potassium and this was repleted. Patient and family were informed consultation was made with Dr. Bret Ovalle of the [facility] service. Patient was evaluated in the ER for further management. Care/management discussed with: hostel manager Level of care consideration(s): After review of the information above and other included data, I feel the patient requires escalation of care to admission Triage Nursing notes: reviewed and agree them. Vital Signs: reviewed and remarkable for no significant abnormalities Additional History obtained from: Patient's family noted that with her last episode of pancreatitis she had significant fluid retention and edema. Chronic Medical/Social Conditions affecting care: Hypertension Prior/ Outside/ External records reviewed: none Differential Diagnosis: Pancreatitis, renal colic, UTI, appendicitis, diverticulitis, mesenteric ischemia, aortic pathology, infections, inflammatory bowel disease, PUD, biliary pathology, cardiac sources, as well as other pathologies. Diagnostics, independently interpreted by me: ECG: Twelve-lead ECG reveals a normal sinus rhythm with a bundle branch block at 62 bpm. No Sgarbossa criteria. No PVCs. Cardiac Monitoring: Cardiac monitoring ordered by me: The patient was placed on continuous cardiac monitoring and observed. It revealed a normal sinus rhythm at 80 beats per minute without ectopy or evidence of dysrhythmia. Medical decision rules: none Imaging studies: CT imaging is concerning for pancreatitis. No free air. HPI: 74 year old Female arrives for evaluation of upper abdominal pain. This started this morning and is now rated as severe. Patient states she has a history of pancreatitis over 20 years ago and this feels the same. The patient also notes the following associated symptoms, nausea, pain radiating to her back. Patient also notes that she just went to her PCP office 6 days ago and was diagnosed with influenza. She was also placed on prednisone and Zithromax. Patient notes pain became severe and EMS was summoned. The patient has under micrograms of fentanyl and Zofran for relieving factors. Current pain is rated as 10/10. Pt denies LOC, headache, fevers, chills, diaphoresis, visual changes, neck pain, chest pain, breathing difficulties, melena, hematochezia, urinary symptoms, numbness, weakness, lymphadenopathy, rash, or other complaints. PAST MEDICAL HISTORY: See Below, pancreatitis, cellulitis PAST SURGICAL HISTORY: See Below, SOCIAL HISTORY: See Below, non-smoker. Denies any recent alcohol use. HOME MEDICATIONS: See Below ALLERGIES: See Below VITALS: See Below PHYSICAL EXAMINATION: GENERAL: Awake, alert, very uncomfortable-appearing, in severe distress HENT: Normocephalic, atraumatic. Oropharynx unremarkable. EYES: Normal conjunctiva. Sclera non-icteric. NECK: Inspection normal. Non-tender. Supple. No nuchal rigidity. FROM. No masses. RESPIRATORY: Clear to auscultation. No wheezes. No rales. Normal respiratory effort. CARDIAC: Normal rate. Normal rhythm. No murmurs. No rubs. Extremities warm and well perfused. Pulses equal. No JVD. GI: Soft, non-distended. Bilateral upper quadrant and epigastric tenderness to palpation. Mild rebound and guarding. No masses. RECTAL: Deferred. MUSCULOSKELETAL: Atraumatic. Chest examination reveals no tenderness. The back is symmetrical on inspection without obvious abnormality. There is bilateral CVA tenderness to palpation. No joint edema. LOWER EXTREMITIES: Calves are equal size bilaterally and non-tender. No edema. No discoloration. NEURO: Normal sensorium. No sensory or motor deficits noted. SKIN: No rash or jaundice noted. 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 Hypertension Surgical History Hx of lumpectomy benign (left) History of repair of rotator cuff left S/P epidural steroid injection History of colonoscopy History of esophagogastroduodenoscopy (EGD) History of cholecystectomy History of cataract surgery bilateral History of ankle surgery right ankle reconstruction Family History Other No family history of adverse response to anesthesia Social History Smoking Status: Never smoker Second Hand Exposure: Yes (hx); Do You Dip or Chew Tobacco: No; Hx Alcohol Use: Yes Alcohol type: wine Hx Substance Use: No Preferred Language: Mongolian Communication Ability: Effective Export Specialist Required: No Beliefs That Will Affect Care: None marital status: Current Living Situation: Spouse How many Children do You have: 2 Feels Safe at Home: Yes Assistive Devices: Walker Allergies Allergies Allergy/AdvReac Type Severity Reaction Status Date / Time duloxetine AdvReac Intermediate Nausea & Verified 09/16/23 08:23 abdominal pain oxycodone AdvReac Intermediate abdominal Verified 09/16/23 08:23 pain Home Meds Home Medications Medication Instructions Recorded Confirmed chlorthalidone 25 mg tablet 12.5 mg PO HS 01/25/21 09/16/23 cholecalciferol (vitamin D3) 25 25 mcg PO HS 01/25/21 09/16/23 mcg (1,000 unit) capsule (Vitamin D3) cyanocobalamin (vitamin B-12) See Rx Instructions .Route .COMPLEX 01/25/21 09/16/23 1,000 mcg/mL injection solution loratadine 10 mg tablet 10 mg PO HS 01/25/21 09/16/23 amlodipine 10 mg tablet 10 mg PO DAILY 09/16/23 09/16/23 gabapentin 100 mg capsule 200 mg PO [facility] 09/16/23 09/16/23 gabapentin 300 mg capsule 500 mg PO HS 09/16/23 09/16/23 losartan 50 mg tablet 100 mg PO DAILY 09/16/23 09/16/23 meloxicam 7.5 mg tablet 7.5 mg PO BID 09/16/23 09/16/23 pantoprazole 20 mg tablet,delayed 20 mg PO DAILY 09/16/23 09/16/23 release (Protonix) Results & Data (ED) Vital Signs Vital Signs - 24 hr 08/13/24 20:31 08/13/24 20:41 08/13/24 20:45 Temperature 36.5 C Temperature Source Oral Pulse Rate 62 62 Pulse Rate [Apical] Respiratory Rate 21 Respiratory Effort / Characteristics Non-Labored Spontaneous Respiratory Depth Normal Blood Pressure 114/67 Blood Pressure [Left Arm] Blood Pressure Mean 82 Blood Pressure Mean [Left Arm] Blood Pressure Position Semi-fowlers Blood Pressure Position [Left Arm] Pulse Oximetry 97 99 Oxygen Delivery Method Room Air Room Air Sepsis Recent Fever Within 48 Hours No Sepsis New/Unexplained Change in Mental Status N/A Sepsis Action Taken by Nursing No Action Required 08/13/24 22:21 Temperature Temperature Source Pulse Rate Pulse Rate [Apical] 80 Respiratory Rate 18 Respiratory Effort / Characteristics Non-Labored Spontaneous Respiratory Depth Normal Blood Pressure Blood Pressure [Left Arm] 129/83 Blood Pressure Mean Blood Pressure Mean [Left Arm] 98 Blood Pressure Position Blood Pressure Position [Left Arm] Semi-fowlers Pulse Oximetry 96 Oxygen Delivery Method Room Air Sepsis Recent Fever Within 48 Hours Sepsis New/Unexplained Change in Mental Status Sepsis Action Taken by Nursing Laboratory Data 08/13/24 20:40 08/13/24 20:40 Lab Results 08/13/24 Range/Units 20:40 WBC 18.69 H (4.8-10.8) K/ul RBC 4.57 (4.20-5.40) M/uL Hgb 13.7 (12.0-16.0) g/dl Hct 39.8 (37.0-47.0) % MCV 87.1 (80.0-100.0) fL MCH 30.0 (25.0-34.0) pg MCHC 34.4 (32.0-36.0) g/dL RDW Std Deviation 41.3 (36.4-46.3) fL RDW Coeff of Jerome 13.1 (11.5-14.5) % Plt Count 237 (130-400) K/uL MPV 10.3 (9.4-12.4) fL Immature Gran % (Auto) 0.4 % Neut % (Auto) 80.1 % Lymph % (Auto) 14.1 % [place] % (Auto) 5.1 % Eos % (Auto) 0.1 % Baso % (Auto) 0.2 % Neut # (Auto) 14.96 H (1.40-6.50) K/uL Lymph # (Auto) 2.64 (1.20-3.40) K/uL [place] # (Auto) 0.96 H (0.11-0.59) K/uL Eos # (Auto) 0.02 (0.00-0.50) K/uL Baso # (Auto) 0.03 (0.00-0.20) K/uL Immature Gran # (Auto) 0.08 (0.01-0.20) K/uL Sodium 140 (136-145) mmol/L Potassium 2.9 L (3.5-5.1) mmol/L Chloride 103 (98-107) mmol/L Carbon Dioxide 25 (21-32) mmol/L Anion Gap 12 H (3-11) BUN 19 (6-23) mg/dl Creatinine 0.85 (0.6-1.2) mg/dl Est Cr Clr Drug Dosing 60.6 ml/min eGFR 72.30 BUN/Creatinine Ratio 22.4 H (10-20) Glucose 162 H (70-99(Fasting)) mg/dl Calcium 9.3 (8.6-10.3) mg/dl Magnesium 1.4 L (1.7-2.4) mg/dl Total Bilirubin 1.3 H (0.2-1.0) mg/dl AST 22 (13-39) U/L ALT 16 (7-52) U/L Alkaline Phosphatase 88 (34-104) U/L Troponin I High Sens 5.5 (0-14) pg/ml Total Protein 7.1 (6.0-8.3) gm/dl Albumin 4.5 (3.4-5.0) gm/dl Globulin 2.6 (2.5-4.0) gm/dl Albumin/Globulin Ratio 1.7 (0.9-2) Lipase 9409 H (11-82) U/L Administered Medications Hydromorphone HCl (Hydromorphone Inj 0.5 Mg/0.5 Ml Syr) 0.5 mg IV Q15M PRN PRN Reason: Pain Stop: 08/27/24 21:03 Last Admin: 08/13/24 22:45 Dose: 0.5 mg Documented By: Admin: 08/13/24 22:20 Dose: 0.5 mg Documented By: Admin: 08/13/24 21:09 Dose: 0.5 mg Documented By: EARL Sodium Chloride (Nss) 1,000 mls @ 125 mls/hr IV .Q8H BETHANIE Stop: 08/14/24 21:14 Last Admin: 08/13/24 22:16 Dose: 125 mls/hr Documented By: MMF Discontinued Medications Sodium Chloride (Nss) 500 mls @ 999 mls/hr IV .Q31M ONE Stop: 08/13/24 21:34 Last Infusion: 08/13/24 23:18 Dose: Infused Documented By: Admin: 08/13/24 21:09 Dose: 999 mls/hr Documented By: EARL Potassium Chloride (K Jose / Wtr) 10 meq in 100 mls @ 100 mls/hr IV ONE ONE Stop: 08/13/24 22:20 Last Infusion: 08/13/24 23:18 Dose: Infused Documented By: Admin: 08/13/24 22:16 Dose: 100 mls/hr Documented By: EARL Ioversol (Optiray 320 100ml) 93 ml IV ONCE ONE Stop: 08/13/24 21:54 Last Admin: 08/13/24 21:55 Dose: 93 ml Documented By: DUSTIN Ondansetron HCl (Ondansetron Inj 2 Mg/Ml 2 Ml Vial) 4 mg IV NOW STA Stop: 08/13/24 21:05 Last Admin: 08/13/24 21:08 Dose: 4 mg Documented By: EARL Discharge Plan Visit Data Chief Complaint: Abdominal Pain Stated Complaint: AB PAIN ED Provider: Yovani Haynes Discharge Problem: Pancreatitis, Acute upper abdominal pain Forms Stand Alone Forms: [facility] Prescriptions Prescriptions: No Action meloxicam 7.5 mg tablet 7.5 mg PO BID pantoprazole [Protonix] 20 mg tablet,delayed release (DR/EC) 20 mg PO DAILY amlodipine 10 mg tablet 10 mg PO DAILY chlorthalidone 25 mg Tablet 12.5 mg PO HS cyanocobalamin (vitamin B-12) 1,000 mcg/mL Solution See Rx Instructions .ROUTE .COMPLEX Rx Instructions: 1,000 mcg intramuscularly loratadine 10 mg Tablet 10 mg PO HS cholecalciferol (vitamin D3) [Vitamin D3] 25 mcg (1,000 unit) Capsule 25 mcg PO HS gabapentin 100 mg capsule 200 mg PO QAM gabapentin 300 mg capsule 500 mg PO HS losartan 50 mg tablet 100 mg PO DAILY Referrals Referrals: Srikanth Dunne [Primary Care Provider] -
[2024-08-13 22:57] LABS: Magnesium 1.4 mg/dl (1.7-2.4)
[2024-08-13] MEDS ORDERED: ONDANSETRON INJ 2 MG/ML 2 ML VIAL IV PRN (23:29)
[2024-08-13] MEDS ORDERED: diphenhydrAMINE 50 MG/ML VIAL IV PRN (23:43)
[2024-08-13] MEDS ORDERED: PROMETHAZINE 12.5 MG/50.5 ML BAG IV PRN (23:43)
--- NOTE | 2024-08-13 23:43 | History & Physical Report ---
Date of Service August 13, 2024 Assessment & Plan (1) Pancreatitis: (2) Influenza A: (3) Hypokalemia: (4) Hypomagnesemia: Plan The patient is a 74-year-old female with a past medical history including left Achilles tendon contracture, acquired pes planovalgus of left foot, hypert ension, vitamin D deficiency, vitamin B12 deficiency, peripheral neuropathy, and GERD. The patient presents to the emergency department with 24 hours of acute abdominal pain, nausea without vomiting, similar to previous occurrence of pancreatitis that occurred 28 years ago. She reports decreased oral intake during this interval, and has had decreased oral intake since being diagnosed with influenza A 4 days ago. She reports that she did get started on a Medrol Dosepak and antibiotic 4 days ago, with no significant change in shortness of breath, but has had improvement in mucus production is noted. With that, she has had a sore throat, intermittently productive cough, initially of yellow- green mucus, and more recently intermittently clear as well. From the emergency department the patient received the following: Dilaudid 0.5 mg IV every 15 minutes, Zofran 4 mg IV, normal saline 500 mL bolus, then 125 mL/h, and potassium chloride 10 mill equivalent rider. Significant abnormalities include potassium 2.9, magnesium 1.4 and glucose 162. Lipase 9409. CT scan abdomen and pelvis shows and enlarged and inhomogeneous pancreas. There is surrounding inflammatory changes and fluid which extend down into the left colon gutter. This is compatible with acute pancreatitis. The patient is referred to the [facility] service for evaluation and further treatment of pancreatitis. #Acute pancreatitis- NPO CT scan abdomen pelvis consistent with acute pancreatitis as noted Lipase 9409, follow serially Zofran 4 mg IV every 6 hours as needed Pantoprazole 40 mg IV now, and every afternoon Phenergan 12.5 mg IV every 6 hours needed for nausea vomiting not relieved by Zofran Benadryl 25 mg IV every 6 hours as needed NSS + KCl 20 mEq at 80 mL/h x 1 L Acetaminophen 1 g IV every 8 hours needed for mild pain or fever Dilaudid 0.25 mg IV every 3 hours as needed for moderate pain Dilaudid 0.5 mg IV every 3 hours needed for severe pain Narcan IV per protocol Check a fasting lipid panel and hemoglobin A1c Influenza A-start Tamiflu Electrolyte disturbances- Potassium 2.9, and magnesium 1.4 on admission For potassium 2.9, received 1K rider from the ED IV fluids as noted above, recheck laboratories in the a.m. Hypomagnesemia, magnesium 1.4 Received 1 g of magnesium sulfate IV from the ED. Will give 2 additional grams IV, and recheck laboratories in the a.m. Hyperglycemia- Glucose 162 on admission Checking hemoglobin A1c as noted GERD- Continue pantoprazole for change to IV as noted Chronic medical conditions: B12 deficiency-temporarily hold supplementation Vitamin D3 deficiency-temporarily hold supplementation Peripheral neuropathy-Temporarily hold gabapentin Hypertension- Temporarily holding losartan History of Present Illness Chief Complaint: The patient presents to the emergency department with 24 hours of acute abdominal pain, nausea without vomiting, similar to previous occurrence of pancreatitis that occurred 28 years ago. She reports decreased oral intake during this interval, and has had decreased oral intake since being diagnosed with influenza A 4 days ago. With that, she has had a sore throat, intermittently productive cough, initially of yellow-green mucus, and more recently intermittently clear as well. Primary Care Provider: Srikanth Dunne The patient is a 74-year-old female with a past medical history including left Achilles tendon contracture, acquired pes planovalgus of left foot, hypertension, vitamin D deficiency, vitamin B12 deficiency, peripheral neuropathy, and GERD. The patient presents to the emergency department with 24 hours of acute abdominal pain, nausea without vomiting, similar to previous occurrence of pancreatitis that occurred 28 years ago. She reports decreased oral intake during this interval, and has had decreased oral intake since being diagnosed with influenza A 4 days ago. She reports that she did get started on a Medrol Dosepak and antibiotic 4 days ago, with no significant change in shortness of breath, but has had improvement in mucus production is noted. With that, she has had a sore throat, intermittently productive cough, initially of yellow-green mucus, and more recently intermittently clear as well. From the emergency department the patient received the following: Dilaudid 0.5 mg IV every 15 minutes, Zofran 4 mg IV, normal saline 500 mL bolus, then 125 mL/h, and potassium chloride 10 mill equivalent rider. Significant abnormalities include potassium 2.9, magnesium 1.4 and glucose 162. Allergies Allergy/AdvReac Type Severity Reaction Status Date / Time duloxetine AdvReac Intermediate Nausea & Verified 09/16/23 08:23 abdominal pain oxycodone AdvReac Intermediate abdominal Verified 09/16/23 08:23 pain Home Medications Medication Instructions Recorded Confirmed Type chlorthalidone 25 mg tablet 12.5 mg PO HS 01/25/21 09/16/23 History cholecalciferol (vitamin D3) 25 25 mcg PO HS 01/25/21 09/16/23 History mcg (1,000 unit) capsule (Vitamin D3) cyanocobalamin (vitamin B-12) See Rx Instructions .Route .COMPLEX 01/25/21 09/16/23 History 1,000 mcg/mL injection solution loratadine 10 mg tablet 10 mg PO HS 01/25/21 09/16/23 History amlodipine 10 mg tablet 10 mg PO DAILY 09/16/23 09/16/23 History gabapentin 100 mg capsule 200 mg PO QAM 09/16/23 09/16/23 History gabapentin 300 mg capsule 500 mg PO HS 09/16/23 09/16/23 History losartan 50 mg tablet 100 mg PO DAILY 09/16/23 09/16/23 History meloxicam 7.5 mg tablet 7.5 mg PO BID 09/16/23 09/16/23 History pantoprazole 20 mg tablet,delayed 20 mg PO DAILY 09/16/23 09/16/23 History release (Protonix) Past Med/Surg History Problem List (Updated 08/14/24 @ 03:58 by Bret Ovalle MD) Hypomagnesemia Hypokalemia Influenza A Acute upper abdominal pain (Acute) Pancreatitis (Acute) Left flank pain Myofascial pain COVID-19 (Acute) Contracture of left Achilles tendon Acquired pes planovalgus of left foot Posterior tibial tendon dysfunction, left Left tibialis posterior tendinitis Encounter for pre-operative examination Back pain (Chronic) Cellulitis (Acute) Cellulitis (Acute) Left leg cellulitis (Acute) Left leg cellulitis (Acute) Medical History 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 Beliefs That Will Affect Care: None marital status: Current Living Situation: Spouse and Family How many Children do You have: 2 Feels Safe at Home: Yes Safety Concerns: Feels Safe At This Time Assistive Devices: Walker Review of Systems Review of Systems: The patient denies palpitations, lower extremity swelling, nausea, vomiting, diarrhea , constipation, abdominal pain, pelvic pain, blood in urine or stool, dysuria, urinary frequency or urgency, memory loss, loss of consciousness, rash, abnormal bruising or bleeding, imbalance, focal weakness, numbness or tingling in arms or legs, generalized arthralgias or myalgias, back or neck pain, or night sweats. The review of systems is otherwise negative other than for that already noted above, and at least 10 systems have been reviewed. Physical Exam Physical Exam: The patient is awake, alert and oriented 3, well developed and well nourished, normocephalic and atraumatic, lying in bed and in no acute distress. HEENT--PERRL, EOMI, mucous membranes and oropharynx mildly dry. Neck--supple. No JVD. No bruits. Thyroid normal, trachea midline, no adenopathy. Heart--normal S1 and S2. No murmurs, rubs or gallops. Lungs--clear bilaterally, no respiratory distress, no accessory muscle use. Abdomen--normal bowel sounds and soft. Nontender. Nondistended, no hernias or masses, no organomegaly. Extremities--no cyanosis or clubbing. No edema. Dermatologic--normal skin turgor, normal color, no abnormal lymph nodes, no rash. Neurologic--cranial nerves II through XII grossly intact. Rheumatologic--normal range of motion. Psychiatric--normal affect. Results & Data Results & Data Vital Signs (Past 12 Hours) Vital Signs Temp Pulse Pulse Resp BP BP Pulse Ox 08/13/24 22:21 80 18 129/83 96 08/13/24 20:45 99 08/13/24 20:41 62 08/13/24 20:31 36.5 C 62 21 114/67 97 O2 Del Method 08/13/24 22:21 Room Air 08/13/24 20:45 Room Air 08/13/24 20:41 08/13/24 20:31 Room Air Laboratory Results Laboratory Results WBC 18.69 K/ul (4.8-10.8) H 08/13/24 20:40 RBC 4.57 M/uL (4.20-5.40) 08/13/24 20:40 Hgb 13.7 g/dl (12.0-16.0) 08/13/24 20:40 Hct 39.8 % (37.0-47.0) 08/13/24 20:40 MCV 87.1 fL (80.0-100.0) 08/13/24 20:40 MCH 30.0 pg (25.0-34.0) 08/13/24 20:40 MCHC 34.4 g/dL (32.0-36.0) 08/13/24 20:40 RDW Std Deviation 41.3 fL (36.4-46.3) 08/13/24 20:40 RDW Coeff of Jerome 13.1 % (11.5-14.5) 08/13/24 20:40 Plt Count 237 K/uL (130-400) 08/13/24 20:40 MPV 10.3 fL (9.4-12.4) 08/13/24 20:40 Immature Gran % (Auto) 0.4 % 08/13/24 20:40 Neut % (Auto) 80.1 % 08/13/24 20:40 Lymph % (Auto) 14.1 % 08/13/24 20:40 Porter % (Auto) 5.1 % 08/13/24 20:40 Eos % (Auto) 0.1 % 08/13/24 20:40 Baso % (Auto) 0.2 % 08/13/24 20:40 Neut # (Auto) 14.96 K/uL (1.40-6.50) H 08/13/24 20:40 Lymph # (Auto) 2.64 K/uL (1.20-3.40) 08/13/24 20:40 Porter # (Auto) 0.96 K/uL (0.11-0.59) H 08/13/24 20:40 Eos # (Auto) 0.02 K/uL (0.00-0.50) 08/13/24 20:40 Baso # (Auto) 0.03 K/uL (0.00-0.20) 08/13/24 20:40 Immature Gran # (Auto) 0.08 K/uL (0.01-0.20) 08/13/24 20:40 Sodium 140 mmol/L (136-145) 08/13/24 20:40 Potassium 2.9 mmol/L (3.5-5.1) L 08/13/24 20:40 Chloride 103 mmol/L (98-107) 08/13/24 20:40 Carbon Dioxide 25 mmol/L (21-32) 08/13/24 20:40 Anion Gap 12 (3-11) H 08/13/24 20:40 BUN 19 mg/dl (6-23) 08/13/24 20:40 Creatinine 0.85 mg/dl (0.6-1.2) 08/13/24 20:40 Est Cr Clr Drug Dosing 60.6 ml/min 08/13/24 20:40 eGFR 72.30 08/13/24 20:40 BUN/Creatinine Ratio 22.4 (10-20) H 08/13/24 20:40 Glucose 162 mg/dl (70-99(Fasting)) H 08/13/24 20:40 Calcium 9.3 mg/dl (8.6-10.3) 08/13/24 20:40 Magnesium 1.4 mg/dl (1.7-2.4) L 08/13/24 20:40 Total Bilirubin 1.3 mg/dl (0.2-1.0) H 08/13/24 20:40 AST 22 U/L (13-39) 08/13/24 20:40 ALT 16 U/L (7-52) 08/13/24 20:40 Alkaline Phosphatase 88 U/L (34-104) 08/13/24 20:40 Troponin I High Sens 5.5 pg/ml (0-14) 08/13/24 20:40 Total Protein 7.1 gm/dl (6.0-8.3) 08/13/24 20:40 Albumin 4.5 gm/dl (3.4-5.0) 08/13/24 20:40 Globulin 2.6 gm/dl (2.5-4.0) 08/13/24 20:40 Albumin/Globulin Ratio 1.7 (0.9-2) 08/13/24 20:40 Lipase 9409 U/L (11-82) H 08/13/24 20:40 Urine Color Yellow 08/14/24 00:50 Urine Appearance Clear (Clear) 08/14/24 00:50 Urine pH 7.0 (4.5-7.5) 08/14/24 00:50 Ur Specific [place] > 1.045 (1.000-1.030) H 08/14/24 00:50 Urine Protein Trace (Negative) H 08/14/24 00:50 Urine Glucose (UA) Negative (Negative) 08/14/24 00:50 Urine Ketones Trace (Negative) H 08/14/24 00:50 Urine Blood Negative (Negative) 08/14/24 00:50 Urine Nitrite Negative (Negative) 08/14/24 00:50 Urine Bilirubin Negative (Negative) 08/14/24 00:50 Urine Urobilinogen Negative (Negative) 08/14/24 00:50 Ur Leukocyte Esterase 3+ (Negative) H 08/14/24 00:50 Urine WBC (Auto) 21-50 /hpf (0-5) H 08/14/24 00:50 Urine RBC (Auto) 0-2 /hpf (0-2) 08/14/24 00:50 U Hyaline Cast (Auto) 0-2 /lpf (0-2) 08/14/24 00:50 U Epithel Cells (Auto) 3-5 /hpf (0-2) H 08/14/24 00:50 Urine Bacteria (Auto) 2+ (None Seen) H 08/14/24 00:50 Urine Yeast Present (None Prsent) A 08/14/24 00:50 Impressions Abdomen/Pelvis CT 08/13/24 21:05 Exam(s): CT ABDOMEN + PELVIS With Contrast IV Amt: 94ml opti 320 EXAM: CT Abdomen and Pelvis With Intravenous Contrast CLINICAL HISTORY: Reason for exam: upper abd pain, hx of pancreatitis. TECHNIQUE: Axial computed tomography images of the abdomen and pelvis with intravenous contrast. Automated exposure control was utilized for the study. A dose lowering technique was utilized adhering to the principles of ALARA. CONTRAST: Patient received 94ml opti 320 of IV contrast COMPARISON: No relevant prior studies available. FINDINGS: Lung bases: . No consolidation. ABDOMEN: Liver: No mass. Gallbladder and bile ducts: The patient is status post cholecystectomy. No significant ductal dilation. Pancreas: The pancreas is enlarged and inhomogeneous. There are surrounding inflammatory changes and fluid which extend down into the left colic gutter.. Spleen: No splenomegaly. Adrenals: No mass. Kidneys and ureters: No hydronephrosis. There are small rounded lucencies within the kidneys. Stomach and bowel: There is a small hiatal hernia. There is air and fluid within the stomach. The colon is relatively decompressed. PELVIS: Appendix: Unremarkable CT scan appearance noted the appendix.. Bladder: No calculi are noted within the bladder.. Reproductive: Unremarkable as visualized. ABDOMEN and PELVIS: Intraperitoneal space: No free air. Bones/joints: There are some degenerative changes in the spine.. Soft tissues: Unremarkable. Vasculature: No abdominal aortic aneurysm. Lymph nodes: No enlarged lymph nodes. IMPRESSION: The pancreas is enlarged and inhomogeneous. There are surrounding inflammatory changes and fluid which extend down into the left colic gutter.. This compatible with acute pancreatitis. Status post cholecystectomy. There are possible bilateral renal cysts. See discussion above Electronically signed by: Yeyo Cobb MD 08/14/24 00:11 AM Code Status & VTE Plan Code Status Full code PG Care Time/CCT Total # of Minutes Spent Total Time Spent with Patient: Total time spent is greater than 50% in coordination of care (as documented) at patient's floor/unit and/or counseling patient: Coding Level of Care Code 11824 INT INP/OBS CARE 3/75MIN Diagnoses Pancreatitis K85.90 Influenza A J10.1 Hypokalemia E87.6 Hypomagnesemia E83.42
[2024-08-13] MEDS ORDERED: NALOXONE HCL 0.4 MG/1 ML VIAL/CARP IV PRN (23:57)
[2024-08-14] MEDS: MAGNESIUM SULFATE / D5W 1 GM/100 ML BAG IV ONE
[2024-08-14] MEDS: NSS + 20MEQ KCL 20 MEQ/1,000 ML BAG IV SCH (00:02)
[2024-08-14] MEDS: PANTOprazole 40 MG/10 ML SYR IV ONE (00:04)
--- NOTE | 2024-08-14 00:12 | CT Scan Report ---
Exam(s): CT ABDOMEN + PELVIS With Contrast IV Amt: 94ml opti 320 EXAM: CT Abdomen and Pelvis With Intravenous Contrast CLINICAL HISTORY: Reason for exam: upper abd pain, hx of pancreatitis. TECHNIQUE: Axial computed tomography images of the abdomen and pelvis with intravenous contrast. Automated exposure control was utilized for the study. A dose lowering technique was utilized adhering to the principles of ALARA. CONTRAST: Patient received 94ml opti 320 of IV contrast COMPARISON: No relevant prior studies available. FINDINGS: Lung bases: . No consolidation. ABDOMEN: Liver: No mass. Gallbladder and bile ducts: The patient is status post cholecystectomy. No significant ductal dilation. Pancreas: The pancreas is enlarged and inhomogeneous. There are surrounding inflammatory changes and fluid which extend down into the left colic gutter.. Spleen: No splenomegaly. Adrenals: No mass. Kidneys and ureters: No hydronephrosis. There are small rounded lucencies within the kidneys. Stomach and bowel: There is a small hiatal hernia. There is air and fluid within the stomach. The colon is relatively decompressed. PELVIS: Appendix: Unremarkable CT scan appearance noted the appendix.. Bladder: No calculi are noted within the bladder.. Reproductive: Unremarkable as visualized. ABDOMEN and PELVIS: Intraperitoneal space: No free air. Bones/joints: There are some degenerative changes in the spine.. Soft tissues: Unremarkable. Vasculature: No abdominal aortic aneurysm. Lymph nodes: No enlarged lymph nodes. IMPRESSION: The pancreas is enlarged and inhomogeneous. There are surrounding inflammatory changes and fluid which extend down into the left colic gutter.. This compatible with acute pancreatitis. Status post cholecystectomy. There are possible bilateral renal cysts. See discussion above Electronically signed by: Yeyo Cobb MD 08/14/24 00:11 AM
[2024-08-14 01:39] LABS: Appearance Urine Clear (Clear); Bacteria Urine Automated 2+ (None Seen); Bilirubin Urine Negative (Negative); Blood Urine Negative (Negative); Cast Urine Automated 0-2 /lpf (0-2); Color Urine Yellow; Glucose Urine UA Negative (Negative); Ketones Urine Trace (Negative); Leukocyte Esterase Urine 3+ (Negative); Nitrite Urine Negative (Negative); Protein Urine Trace (Negative); RBC Urine Automated 0-2 /hpf (0-2); Specific Gravity Urine > 1.045 (1.000-1.030); Urobilinogen Urine Negative (Negative); WBC Urine Automated 21-50 /hpf (0-5)
[2024-08-14] MEDS: HYDROmorphone INJ 0.5 MG/0.5 ML SYR IV PRN ×2 (02:12→08:26)
[2024-08-14] MEDS: OSELTAMIVIR PHOSPHATE SUSP 75 MG/12.5 ML UDP PO SCH (02:46)
[2024-08-14] MEDS: MAGNESIUM SULFATE / D5W 1 GM/100 ML BAG IV SCH (02:46)
[2024-08-14 07:14] LABS: Albumin Level 3.7 gm/dl (3.4-5.0); Bilirubin,Total 1.1 mg/dl (0.2-1.0); Calcium 7.6 mg/dl (8.6-10.3); Magnesium 2.2 mg/dl (1.7-2.4); Potassium 3.6 mmol/L (3.5-5.1)
[2024-08-14 07:20] LABS: BUN Creatinine Ratio 22.4 (10-20); Creatinine Clr Calc Pharmacy 76.9 ml/min
[2024-08-14 07:21] LABS: Albumin Globulin Ratio 1.4 (0.9-2); Chol HDL Ratio 3.5 (0-5); Globulin 2.6 gm/dl (2.5-4.0); Total Protein 6.3 gm/dl (6.0-8.3)
[2024-08-14 07:36] LABS: Basophils # (auto) 0.01 K/uL (0.00-0.20); Basophils % (auto) 0.1 %; Hematocrit (blood only) 40.4 % (37.0-47.0); Hemoglobin 13.6 g/dl (12.0-16.0); Immature Granulocytes # (auto) 0.04 K/uL (0.01-0.20); Immature Granulocytes % (auto) 0.3 %; Lymphocytes # (auto) 0.97 K/uL (1.20-3.40); Lymphocytes % (auto) 7.7 %; Mean Corpuscular Hemoglobin 30.5 pg (25.0-34.0); Mean Corpuscular Hgb Conc 33.7 g/dL (32.0-36.0); Mean Corpuscular Volume 90.6 fL (80.0-100.0); Mean Platelet Volume 10.6 fL (9.4-12.4); Monocytes # (auto) 0.87 K/uL (0.11-0.59); Monocytes % (auto) 6.9 %; Neutrophils # (auto) 10.71 K/uL (1.40-6.50); Platelet Count 184 K/uL (130-400); RDW Coefficient of Variation 13.1 % (11.5-14.5); RDW Standard Deviation 43.3 fL (36.4-46.3); Red Blood Count 4.46 M/uL (4.20-5.40)
--- NOTE | 2024-08-14 07:39 | Hospitalist Progress Note ---
Date of Service August 14, 2024 Assessment & Plan (1) Pancreatitis: (2) Influenza A: (3) Hypokalemia: (4) Hypomagnesemia: Plan The patient is a 74-year-old female with a past medical history including left Achilles tendon contracture, acquired pes planovalgus of left foot, hypert ension, vitamin D deficiency, vitamin B12 deficiency, peripheral neuropathy, and GERD. The patient presents to the emergency department with 24 hours of acute abdominal pain, nausea without vomiting, similar to previous occurrence of pancreatitis that occurred 28 years ago. She reports decreased oral intake during this interval, and has had decreased oral intake since being diagnosed with influenza A 4 days ago. She reports that she did get started on a Medrol Dosepak and antibiotic 4 days ago, with no significant change in shortness of breath, but has had improvement in mucus production is noted. With that, she has had a sore throat, intermittently productive cough, initially of yellow- green mucus, and more recently intermittently clear as well. From the emergency department the patient received the following: Dilaudid 0.5 mg IV every 15 minutes, Zofran 4 mg IV, normal saline 500 mL bolus, then 125 mL/h, and potassium chloride 10 mill equivalent rider. Significant abnormalities include potassium 2.9, magnesium 1.4 and glucose 162. Lipase 9409. CT scan abdomen and pelvis shows and enlarged and inhomogeneous pancreas. There is surrounding inflammatory changes and fluid which extend down into the left colon gutter. This is compatible with acute pancreatitis. The patient is referred to the [facility] for evaluation and further treatment of pancreatitis. #Acute pancreatitis- NPO CT scan abdomen pelvis consistent with acute pancreatitis as noted Lipase 9409, follow serially, trending down Zofran 4 mg IV every 6 hours as needed Pantoprazole 40 mg IV now, and every afternoon Phenergan 12.5 mg IV every 6 hours needed for nausea vomiting not relieved by Zofran Benadryl 25 mg IV every 6 hours as needed NSS + KCl 20 mEq at 80 mL/h x 1 L Acetaminophen 1 g IV every 8 hours needed for mild pain or fever Dilaudid 0.25 mg IV every 2 hours as needed for moderate pain Dilaudid 0.5 mg IV every 3 hours needed for severe pain Narcan IV per protocol T hemoglobin A1c: 5.7 Influenza A-start Tamiflu Electrolyte disturbances- Potassium 2.9, and magnesium 1.4 on admission - electrolytes improving with repletion Hyperglycemia- Glucose 162 on admission A1c: 5.7 GERD- Continue pantoprazole for change to IV as noted Chronic medical conditions: B12 deficiency-temporarily hold supplementation Vitamin D3 deficiency-temporarily hold supplementation Peripheral neuropathy-Temporarily hold gabapentin Hypertension- Temporarily holding losartan Admission and Anticipated Discharge Date Admission Date: August 14, 2024 Subjective Admitted yesterday for acute pancreatitis This morning, she was having pretty significant pain requiring IV pain medications Currently, pain is improving but still present, especially with palpation Review of Systems Review of Systems: Comprehensive ROS completed Physical Exam Physical Exam: Gen: NAD, currently in bed comfortable HEENT: NC/AT, anicteric, MMM Lungs: diminished breath sounds, but overall clear CVS: [id number], RRR Abd: diminished bowel sounds, significant pain in the epigastric region with palpation Ext: no edema Results & Data Results & Data Vital Signs (Past 12 Hours) Vital Signs Temp Pulse Pulse Resp BP BP Pulse Ox 08/14/24 07:28 70 08/14/24 07:28 69 16 126/75 97 08/14/24 06:30 79 20 108/65 98 08/14/24 03:39 08/14/24 03:32 72 18 146/88 H 98 08/14/24 03:01 68 18 110/74 97 08/14/24 02:17 82 20 146/99 H 93 08/14/24 01:00 85 18 117/53 L 95 08/14/24 00:46 85 08/14/24 00:30 80 21 124/97 94 08/14/24 00:00 72 18 136/69 98 08/14/24 00:00 78 20 124/97 92 08/13/24 23:30 71 20 104/78 98 08/13/24 23:00 78 15 104/78 97 08/13/24 22:21 80 18 129/83 96 08/13/24 20:45 99 08/13/24 20:41 62 08/13/24 20:31 36.5 C 62 21 114/67 97 Pulse Ox O2 Del Method O2 Del Method O2 Flow Rate O2 Flow Rate 08/14/24 07:28 08/14/24 07:28 Nasal Cannula 2 08/14/24 06:30 Room Air 08/14/24 03:39 99 Nasal Cannula 2 08/14/24 03:32 08/14/24 03:01 08/14/24 02:17 Room Air 08/14/24 01:00 08/14/24 00:46 08/14/24 00:30 08/14/24 00:00 08/14/24 00:00 Room Air 08/13/24 23:30 08/13/24 23:00 08/13/24 22:21 Room Air 08/13/24 20:45 Room Air 08/13/24 20:41 08/13/24 20:31 Room Air PG Care Time/CCT Total # of Minutes Spent Total Time Spent with Patient: Total time spent is greater than 50% in coordination of care (as documented) at patient's floor/unit and/or counseling patient: Coding Level of Care Code 11175 SUB INP/OBS CARE 2/35MIN Diagnoses Pancreatitis K85.90 Influenza A J10.1 Hypokalemia E87.6 Hypomagnesemia E83.42
[2024-08-14 08:21] LABS: Estimated Average Glucose 117 mg/dl; Hemoglobin A1C 5.7 % (4.5-5.6)
[2024-08-14] MEDS: HEPARIN SOD 5,000 UNIT/0.5 ML VIAL SQ SCH (08:48)
[2024-08-14] MEDS: ONDANSETRON INJ 2 MG/ML 2 ML VIAL IV PRN (08:49)
[2024-08-14] MEDS: SODIUM CHLORIDE 0.9% 1,000 ML IV SCH (17:51)
[2024-08-14] MEDS: POTASSIUM CHLORIDE / WTR 10 MEQ/100 ML PLCT IV SCH (17:56)
[2024-08-14] MEDS: PANTOprazole 40 MG/10 ML SYR IV SCH (21:43)
[2024-08-15 01:11] LABS: Adenovirus PCR Not Detected (NotDetected); Bordetella parapertussis PCR Not Detected (NotDetected); Bordetella pertussis PCR Not Detected (NotDetected); Chlamydia pneumoniae PCR Not Detected (NotDetected); Coronavirus 229E PCR Not Detected (NotDetected); Coronavirus CoV-2 (COVID19)PCR Not Detected (NotDetected); Coronavirus HKU1 PCR Not Detected (NotDetected); Coronavirus NL63 PCR Not Detected (NotDetected); Coronavirus OC43PCR Not Detected (NotDetected); Human Metapneumovirus PCR Not Detected (NotDetected); Influenza A (H3) PCR DETECTED (NotDetected); Influenza B PCR Not Detected (NotDetected); Mycoplasma pneumoniae PCR Not Detected (NotDetected); Parainfluenza Virus 1 PCR Not Detected (NotDetected); Parainfluenza Virus 2 PCR Not Detected (NotDetected); Parainfluenza Virus 3 PCR Not Detected (NotDetected); Parainfluenza Virus 4 PCR Not Detected (NotDetected); Respiratory Syncytial VirusPCR Not Detected (NotDetected); Rhinovirus/Enterovirus PCR Not Detected (NotDetected)
[2024-08-15 07:06] LABS: Basophils # (auto) 0.04 K/uL (0.00-0.20); Basophils % (auto) 0.2 %; Hematocrit (blood only) 38.2 % (37.0-47.0); Hemoglobin 12.8 g/dl (12.0-16.0); Immature Granulocytes # (auto) 0.23 K/uL (0.01-0.20); Lymphocytes # (auto) 1.12 K/uL (1.20-3.40); Lymphocytes % (auto) 4.9 %; Mean Corpuscular Hemoglobin 29.9 pg (25.0-34.0); Mean Corpuscular Hgb Conc 33.5 g/dL (32.0-36.0); Mean Corpuscular Volume 89.3 fL (80.0-100.0); Mean Platelet Volume 10.4 fL (9.4-12.4); Monocytes # (auto) 1.48 K/uL (0.11-0.59); Monocytes % (auto) 6.5 %; Neutrophils # (auto) 19.92 K/uL (1.40-6.50); Neutrophils % (auto) 87.4 %; Platelet Count 212 K/uL (130-400); RDW Coefficient of Variation 13.7 % (11.5-14.5); RDW Standard Deviation 44.7 fL (36.4-46.3); Red Blood Count 4.28 M/uL (4.20-5.40); White Blood Count 22.79 K/ul (4.8-10.8)
[2024-08-15 07:21] LABS: Albumin Globulin Ratio 1.4 (0.9-2); Albumin Level 3.4 gm/dl (3.4-5.0); Bilirubin,Total 1.7 mg/dl (0.2-1.0); Calcium 7.8 mg/dl (8.6-10.3); Creatinine Clr Calc Pharmacy 64.3 ml/min; Globulin 2.5 gm/dl (2.5-4.0); Total Protein 5.9 gm/dl (6.0-8.3)
--- NOTE | 2024-08-15 09:14 | Hospitalist Progress Note ---
Date of Service August 15, 2024 Assessment & Plan (1) Pancreatitis: (2) Influenza A: (3) Hypokalemia: (4) Hypomagnesemia: Plan The patient is a 74-year-old female with a past medical history including left Achilles tendon contracture, acquired pes planovalgus of left foot, hypertensi on, vitamin D deficiency, vitamin B12 deficiency, peripheral neuropathy, and GERD. The patient presents to the emergency department with 24 hours of acute abdominal pain, nausea without vomiting, similar to previous occurrence of pancreatitis that occurred 28 years ago. She reports decreased oral intake during this interval, and has had decreased oral intake since being diagnosed with influenza A 4 days ago. She reports that she did get started on a Medrol Dosepak and antibiotic 4 days ago, with no significant change in shortness of breath, but has had improvement in mucus production is noted. With that, she has had a sore throat, intermittently productive cough, initially of yellow- green mucus, and more recently intermittently clear as well. From the emergency department the patient received the following: Dilaudid 0.5 mg IV every 15 minutes, Zofran 4 mg IV, normal saline 500 mL bolus, then 125 mL/h, and potassium chloride 10 mill equivalent rider. Significant abnormalities include potassium 2.9, magnesium 1.4 and glucose 162. Lipase 9409. CT scan abdomen and pelvis shows and enlarged and inhomogeneous pancreas. There is surrounding inflammatory changes and fluid which extend down into the left colon gutter. This is compatible with acute pancreatitis. The patient is referred to the [facility] service for evaluation and further treatment of pancreatitis. #Acute pancreatitis - CT scan abdomen pelvis consistent with acute pancreatitis as noted - cont NPO, mouth care with biotene - Lipase 9409, follow serially, trending down - due to significant rise in WBC, rpt CT abd / pelvis obtained which showed necrotizing pancreatitis. Currently afebrile, no indication for antibiotics, however, if febrile, will need to transfer to [facility] (family aware) for further management - Zofran 4 mg IV every 6 hours as needed - Phenergan 12.5 mg IV every 6 hours needed for nausea vomiting not relieved by Zofran - Pantoprazole 40 mg IV daily - cont NS, monitor for volume overload - Acetaminophen 1 g IV every 8 hours needed for mild pain or fever - Dilaudid 0.25 mg IV every 2 hours as needed for moderate pain - Dilaudid 0.5 mg IV every 3 hours needed for severe pain - Narcan IV per protocol - T hemoglobin A1c: 5.7 #Influenza A - cont Oseltamivir, last dose 08/18/24 - incentive spirometry #Electrolyte disturbances- - Potassium 2.9, and magnesium 1.4 on admission - electrolytes improving with repletion #Hyperglycemia- - Glucose 162 on admission - A1c: 5.7 #GERD- - IV PPI #Chronic medical conditions: - B12 deficiency-temporarily hold supplementation - Vitamin D3 deficiency-temporarily hold supplementation - Peripheral neuropathy-Temporarily hold gabapentin - Hypertension- Temporarily holding losartan, prn labetalol ordered Dispo: pending clinical improvement 08/14: updated pt's daughter 08/15: pt's granddaughter at bedside, also updated pt's daughter via conference call Admission and Anticipated Discharge Date Admission Date: August 13, 2024 Subjective No acute events overnight Currently, mild forgetfulness Offered no complaints Review of Systems Review of Systems: Comprehensive ROS completed Physical Exam Physical Exam: Gen: NAD, currently in bed comfortable HEENT: NC/AT, anicteric, MMM Lungs: diminished breath sounds, but overall clear CVS: s1s2nl, RRR Abd: diminished bowel sounds, epigastric pain still present Ext: no edema Results & Data Results & Data Vital Signs (Past 12 Hours) Vital Signs Temp Pulse Pulse Resp BP Pulse Ox O2 Del Method 08/15/24 07:55 Nasal Cannula 08/15/24 07:45 37.2 C 93 H 18 140/84 95 Nasal Cannula 08/15/24 07:34 87 08/15/24 02:11 85 08/15/24 02:08 36.9 C 93 H 24 124/84 92 Nasal Cannula 08/15/24 02:00 Nasal Cannula 08/15/24 00:23 85 08/14/24 23:34 Nasal Cannula 08/14/24 23:34 85 08/14/24 23:09 37.4 C 89 18 121/77 94 Nasal Cannula O2 Flow Rate 08/15/24 07:55 2 08/15/24 07:45 2 08/15/24 07:34 08/15/24 02:11 08/15/24 02:08 2 08/15/24 02:00 2 08/15/24 00:23 08/14/24 23:34 2 08/14/24 23:34 08/14/24 23:09 2 PG Care Time/CCT Total # of Minutes Spent Total Time Spent with Patient: Total time spent is greater than 50% in coordination of care (as documented) at patient's floor/unit and/or counseling patient: Coding Level of Care Code 92687 SUB INP/OBS CARE 2/35MIN Diagnoses Pancreatitis K85.90 Influenza A J10.1 Hypokalemia E87.6 Hypomagnesemia E83.42
[2024-08-15] MEDS: OPTIRAY 320 100ml IV ONE (10:15)
--- NOTE | 2024-08-15 10:53 | CT Scan Report ---
CT OF THE ABDOMEN AND PELVIS WITH CONTRAST CLINICAL HISTORY: pancreatitis, worsening WBC, r/o necrosis, abscess COMPARISON STUDY: CT of the abdomen and pelvis August 13, 2024. TECHNIQUE: Following IV administration of 94 mL of Optiray, axial images of the abdomen and pelvis we re obtained from the lung bases to the proximal femurs. Images were reviewed in the axial, sagittal, and coronal planes. IV contrast was administered without complication. Automated exposure control wa s utilized for the study. A dose lowering technique was utilized adhering to the principles of ALARA . CT DOSE: 1464.95 mGy.cm FINDINGS: Small bilateral pleural effusions have developed since prior CT. Extensive associated lower lobe opacities favor atelectasis. No pneumatosis, free air or portal venous gas is present. There is no biliary ductal dilatation status post cholecystectomy. A few subcentimeter hypodense hepatic lesi ons are unchanged. These favor cysts. There is hepatic steatosis. Spleen, adrenal glands and kidneys are unremarkable with the exception of a few subcentimeter renal lesions which are too small to megan cterize but are likely benign. Pancreatic parenchymal enhancement has significantly diminished since prior CT. The pancreatic body, neck and portions of the head are nonenhancing. This is consistent wit h pancreatic necrosis. Peripancreatic stranding and fluid extending into the mesentery and anterior p ararenal spaces has slightly increased. No peripancreatic fluid collection is present. Major vasculat ure is patent. There is no evidence for a bowel obstruction. Ascites within the pelvis has increased. Wall thickening of the descending colon is likely due to underdistention. IMPRESSION: 1. Findings consistent with acute necrotizing pancreatitis. Nonenhancement of the majority of the ferrell creatic parenchyma consistent with pancreatic necrosis. No peripancreatic fluid collections. Increase in peripancreatic inflammation and fluid extending into the mesentery, anterior pararenal spaces and pelvis, as described above. These findings will be called/faxed to ordering provider at time of dict ation. 2. Interval development of small bilateral pleural effusions. Associated lower lobe airspace opacitie s favor atelectasis. 3. Hepatic steatosis. 4. No biliary ductal dilatation status post cholecystectomy. 5. Wall thickening of the descending colon with adjacent stranding. This is likely secondary to pancr eatitis or underdistention. A nonspecific colitis could appear similar. ACT 112: Negative or not required by law. Electronically signed by: Jacob Castaneda M.D. 08/15/2024 10:50 AM
--- NOTE | 2024-08-15 12:50 | Electrocardiogram Report ---
Test Reason : Blood Pressure : */* mmHG Vent. Rate : 62 BPM Atrial Rate : 62 BPM P-R Int : 158 ms QRS Dur : 146 ms QT Int : 498 ms P-R-T Axes : 79 3 64 degrees QTcB Int : 505 ms Normal sinus rhythm Left bundle branch block Abnormal ECG When compared with ECG of 05-Feb-2022 14:35, No significant change was found Confirmed by Ovidio Pimentel ([id number]) on 08/15/2024 12:50:34 PM Referred By: REFERRED SELF Confirmed By: Ovidio Pimentel
[2024-08-15] MEDS ORDERED: LABETALOL HCL IV 5 MG/ML 20ML IV PRN (18:06)
[2024-08-15] MEDS: 4.5GM X1 IV STA (21:28)
[2024-08-16] MEDS: PIPERACILLIN/TAZOBACTAM 4.5 GM/100 ML BAG IV SCH (02:15)
[2024-08-16] MEDS: HYDROmorphone INJ 0.5 MG/0.5 ML SYR IV PRN (06:27)
[2024-08-16 07:54] LABS: Hematocrit (blood only) 32.5 % (37.0-47.0); Hemoglobin 10.8 g/dl (12.0-16.0); Mean Corpuscular Hemoglobin 30.1 pg (25.0-34.0); Mean Corpuscular Hgb Conc 33.2 g/dL (32.0-36.0); Mean Corpuscular Volume 90.5 fL (80.0-100.0); Mean Platelet Volume 10.5 fL (9.4-12.4); Platelet Count 180 K/uL (130-400); RDW Standard Deviation 46.6 fL (36.4-46.3); Red Blood Count 3.59 M/uL (4.20-5.40); White Blood Count 19.07 K/ul (4.8-10.8)
--- NOTE | 2024-08-16 08:13 | Hospitalist Progress Note ---
Date of Service August 16, 2024 Assessment & Plan (1) Pancreatitis: (2) Influenza A: (3) Hypokalemia: (4) Hypomagnesemia: Plan The patient is a 74-year-old female with a past medical history including left Achilles tendon contracture, acquired pes planovalgus of left foot, hypertensi on, vitamin D deficiency, vitamin B12 deficiency, peripheral neuropathy, and GERD. The patient presents to the emergency department with 24 hours of acute abdominal pain, nausea without vomiting, similar to previous occurrence of pancreatitis that occurred 28 years ago. She reports decreased oral intake during this interval, and has had decreased oral intake since being diagnosed with influenza A 4 days ago. She reports that she did get started on a Medrol Dosepak and antibiotic 4 days ago, with no significant change in shortness of breath, but has had improvement in mucus production is noted. With that, she has had a sore throat, intermittently productive cough, initially of yellow- green mucus, and more recently intermittently clear as well. From the emergency department the patient received the following: Dilaudid 0.5 mg IV every 15 minutes, Zofran 4 mg IV, normal saline 500 mL bolus, then 125 mL/h, and potassium chloride 10 mill equivalent rider. Significant abnormalities include potassium 2.9, magnesium 1.4 and glucose 162. Lipase 9409. CT scan abdomen and pelvis shows and enlarged and inhomogeneous pancreas. There is surrounding inflammatory changes and fluid which extend down into the left colon gutter. This is compatible with acute pancreatitis. [facility]. #Acute pancreatitis - CT scan abdomen pelvis consistent with acute pancreatitis as noted - remains NPO, but will trial ice chips and small sips today, advance diet slowly - Lipase 9409, follow serially, trending down - due to significant rise in WBC, rpt CT abd / pelvis obtained which showed necrotizing pancreatitis. started on Zosyn by overnight team, will continue for 48 hrs and d/c if overall improving. - Zofran 4 mg IV every 6 hours as needed - Phenergan 12.5 mg IV every 6 hours needed for nausea vomiting not relieved by Zofran - Pantoprazole 40 mg IV daily - cont NS, will titrate down the rate, monitor closely for volume overload - Acetaminophen 1 g IV every 8 hours needed for mild pain or fever - Dilaudid 0.25 mg IV every 2 hours as needed for moderate pain - Dilaudid 0.5 mg IV every 3 hours needed for severe pain - Narcan IV per protocol - T hemoglobin A1c: 5.7 #Influenza A - cont Oseltamivir, last dose 08/18/24 - incentive spirometry #Electrolyte disturbances- - Potassium 2.9, and magnesium 1.4 on admission - electrolytes improving with repletion #Hyperglycemia- - Glucose 162 on admission - A1c: 5.7 #GERD- - IV PPI #Chronic medical conditions: - B12 deficiency-temporarily hold supplementation - Vitamin D3 deficiency-temporarily hold supplementation - Peripheral neuropathy-Temporarily hold gabapentin - Hypertension- Temporarily holding losartan, prn labetalol ordered Dispo: pending clinical improvement 08/14: updated pt's daughter 08/15: pt's granddaughter at bedside, also updated pt's daughter via conference call 08/16: pt's daughter at bedside Admission and Anticipated Discharge Date Admission Date: August 13, 2024 Subjective No acute events overnight Currently states she is feeling pain Review of Systems Review of Systems: Comprehensive ROS completed Physical Exam Physical Exam: Gen: NAD, currently in bed comfortable HEENT: NC/AT, anicteric, MMM Lungs: diminished breath sounds, but overall clear CVS: s1s2nl, RRR Abd: epigastric pain significantly improved with palpation compared to admission, bowel sounds normal, soft abdomen Ext: no edema Results & Data Results & Data Vital Signs (Past 12 Hours) Vital Signs Temp Pulse Pulse Resp BP Pulse Ox O2 Del Method 08/16/24 02:32 36.7 C 100 H 20 138/79 91 Nasal Cannula 08/16/24 00:08 36.6 C 96 H 18 132/84 92 Nasal Cannula 08/15/24 21:42 98 H 08/15/24 21:30 Nasal Cannula 08/15/24 20:55 37.5 C 100 H 22 140/81 91 Nasal Cannula O2 Flow Rate 08/16/24 02:32 08/16/24 00:08 08/15/24 21:42 08/15/24 21:30 2 08/15/24 20:55 2 PG Care Time/CCT Total # of Minutes Spent Total Time Spent with Patient: Total time spent is greater than 50% in coordination of care (as documented) at patient's floor/unit and/or counseling patient: Coding Level of Care Code 62048 SUB INP/OBS CARE 235MIN Diagnoses Pancreatitis K85.90 Influenza A J10.1 Hypokalemia E87.6 Hypomagnesemia E83.42
[2024-08-16 08:17] LABS: Albumin Globulin Ratio 1.2 (0.9-2); Albumin Level 2.9 gm/dl (3.4-5.0); BUN Creatinine Ratio 22.7 (10-20); Calcium 7.6 mg/dl (8.6-10.3); Globulin 2.4 gm/dl (2.5-4.0); Magnesium 1.8 mg/dl (1.7-2.4); Potassium 3.3 mmol/L (3.5-5.1); Total Protein 5.3 gm/dl (6.0-8.3)
[2024-08-16 08:19] LABS: Basophils # (auto) 0.03 K/uL (0.00-0.20); Basophils % (auto) 0.2 %; Dohle Bodies 1+; Eosinophils # (auto) 0.01 K/uL (0.00-0.50); Eosinophils % (auto) 0.1 %; Immature Granulocytes % (auto) 1.6 %; Lymphocytes # (auto) 0.57 K/uL (1.20-3.40); Monocytes # (auto) 0.85 K/uL (0.11-0.59); Monocytes % (auto) 4.5 %; Neutrophils # (auto) 17.31 K/uL (1.40-6.50); Neutrophils % (auto) 90.6 %
[2024-08-16] MEDS: OSELTAMIVIR PHOSPHATE 75 MG CAP PO SCH (21:51)
[2024-08-17 06:41] LABS: Hematocrit (blood only) 33.1 % (37.0-47.0); Mean Corpuscular Hemoglobin 30.1 pg (25.0-34.0); Mean Corpuscular Hgb Conc 33.2 g/dL (32.0-36.0); Mean Corpuscular Volume 90.4 fL (80.0-100.0); Mean Platelet Volume 11.1 fL (9.4-12.4); Platelet Count 204 K/uL (130-400); RDW Coefficient of Variation 14.4 % (11.5-14.5); Red Blood Count 3.66 M/uL (4.20-5.40); White Blood Count 21.34 K/ul (4.8-10.8)
--- NOTE | 2024-08-17 07:42 | Hospitalist Progress Note ---
Date of Service August 17, 2024 Assessment & Plan (1) Pancreatitis: (2) Influenza A: (3) Hypokalemia: (4) Hypomagnesemia: Plan The patient is a 74-year-old female with a past medical history including left Achilles tendon contracture, acquired pes planovalgus of left foot, hypertensi on, vitamin D deficiency, vitamin B12 deficiency, peripheral neuropathy, and GERD. The patient presents to the emergency department with 24 hours of acute abdominal pain, nausea without vomiting, similar to previous occurrence of pancreatitis that occurred 28 years ago. She reports decreased oral intake during this interval, and has had decreased oral intake since being diagnosed with influenza A 4 days ago. She reports that she did get started on a Medrol Dosepak and antibiotic 4 days ago, with no significant change in shortness of breath, but has had improvement in mucus production is noted. With that, she has had a sore throat, intermittently productive cough, initially of yellow- green mucus, and more recently intermittently clear as well. From the emergency department the patient received the following: Dilaudid 0.5 mg IV every 15 minutes, Zofran 4 mg IV, normal saline 500 mL bolus, then 125 mL/h, and potassium chloride 10 mill equivalent rider. Significant abnormalities include potassium 2.9, magnesium 1.4 and glucose 162. Lipase 9409. CT scan abdomen and pelvis shows and enlarged and inhomogeneous pancreas. There is surrounding inflammatory changes and fluid which extend down into the left colon gutter. This is compatible with acute pancreatitis. The patient is referred to the [facility] for evaluation and further treatment of pancreatitis. #Acute pancreatitis - CT scan abdomen pelvis consistent with acute pancreatitis, rpt CT (08/15: showing necrotizing pancreatitis, does have some ascites, no obstruction) - remains NPO, but will trial ice chips and small sips today, advance diet slowly - Lipase 9409, follow serially, trending down - due to significant rise in WBC, rpt CT abd / pelvis obtained which showed necrotizing pancreatitis. started on Zosyn on 08/15/24, will continue at this time - Zofran 4 mg IV every 6 hours as needed - Phenergan 12.5 mg IV every 6 hours needed for nausea vomiting not relieved by Zofran - Pantoprazole 40 mg IV daily - NS on hold as pt started clear liquid diet today (tolerating) - scheduled PO liquid tylenol ATC - reduce frequency of dilaudid 0.2 mg IV to q4h prn mod pain and dilaudid 0.4 mg IV to q6h prn severe pain - Narcan IV per protocol - T hemoglobin A1c: 5.7 - if pain persisting tomorrow, will consider rpt CT #OIC - senna daily and prn bisacodyl suppository #Influenza A - cont Oseltamivir, last dose 08/18/24 - incentive spirometry #Electrolyte disturbances- - Potassium 2.9, and magnesium 1.4 on admission - electrolytes improving with repletion #Hyperglycemia- - Glucose 162 on admission - A1c: 5.7 #GERD- - IV PPI #Chronic medical conditions: - B12 deficiency-temporarily hold supplementation - Vitamin D3 deficiency-temporarily hold supplementation - Peripheral neuropathy-Temporarily hold gabapentin - Hypertension- Temporarily holding losartan, prn labetalol ordered Dispo: pending clinical improvement 08/14: updated pt's daughter 08/15: pt's granddaughter at bedside, also updated pt's daughter via conference call 08/16: pt's daughter at bedside 08/17: pt's daughter at bedside Admission and Anticipated Discharge Date Admission Date: August 13, 2024 Subjective No acute events overnight Still having pain but noted to be mostly when awake. Pain is more diffuse and less focused around epigastric region She had clears this morning, appears to be tolerating Not passing gas, also no BM since 08/13 (though have not been taking in any oral intake) Review of Systems Review of Systems: Comprehensive ROS completed Physical Exam Physical Exam: Gen: NAD, sitting in bed rubbing her belly with mild grimace HEENT: NC/AT, anicteric, MMM Lungs: still diminished breath sounds, but overall clear CVS: s1s2nl, RRR Abd: bowel sounds present but diminished, pain with palpation significantly improved, abdomen remains soft Ext: no edema in the lower extremities (mild edema of the hands, stable since yesterday) Results & Data Results & Data Vital Signs (Past 12 Hours) Vital Signs Temp Pulse Pulse Pulse Resp BP BP 08/17/24 07:34 36.6 C 109 H 17 146/86 H 08/17/24 07:00 100 H 08/17/24 01:30 36.8 C 104 H 18 136/85 08/16/24 23:11 08/16/24 22:50 36.5 C 100 H 16 130/76 08/16/24 22:48 101 H 08/16/24 21:46 108 H 08/16/24 21:46 108 H 08/16/24 20:00 36.7 C 97 H 22 143/79 H Pulse Ox O2 Del Method O2 Flow Rate 08/17/24 07:34 92 Nasal Cannula 4 08/17/24 07:00 08/17/24 01:30 93 Nasal Cannula 4 08/16/24 23:11 Nasal Cannula 4 08/16/24 22:50 92 Nasal Cannula 4 08/16/24 22:48 08/16/24 21:46 08/16/24 21:46 08/16/24 20:00 92 Nasal Cannula 3 PG Care Time/CCT Total # of Minutes Spent Total Time Spent with Patient: Total time spent is greater than 50% in coordination of care (as documented) at patient's floor/unit and/or counseling patient: Coding Level of Care Code 77791 SUB INP/OBS CARE 3/50MIN Diagnoses Pancreatitis K85.90 Influenza A J10.1 Hypokalemia E87.6 Hypomagnesemia E83.42
[2024-08-17 07:56] LABS: BUN Creatinine Ratio 22.7 (10-20); Calcium 8.3 mg/dl (8.6-10.3); Creatinine Clr Calc Pharmacy 79.8 ml/min; Magnesium 1.8 mg/dl (1.7-2.4); Phosphorus 1.2 mg/dl (2.5-4.9); Potassium 3.2 mmol/L (3.5-5.1)
[2024-08-17] MEDS ORDERED: POTASSIUM PHOS 3 MMOL/1 ML INFUSION IV STA ×2 (08:02→17:40)
[2024-08-17] MEDS: bisacodyL 10 MG SUPP PR STA (08:31)
[2024-08-17] MEDS: MAGNESIUM SULFATE / D5W 1 GM/100 ML BAG IV SCH (08:31)
[2024-08-17] MEDS: POTASSIUM PHOSPHATE 21 MMOL in SODIUM CHLORIDE 0.9% 500 ML IV ONE (08:38)
[2024-08-17] MEDS: HYDROmorphone INJ 0.5 MG/0.5 ML SYR IV PRN ×2 (12:15→16:32)
[2024-08-17] MEDS: ACETAMINOPHEN SUSP 325 MG/10.15 ML UDC PO SCH (15:05)
[2024-08-17] MEDS ORDERED: bisacodyL 10 MG SUPP PR PRN (16:53)
[2024-08-17] MEDS: SENNOSIDES 8.8 MG/5 ML UDC PO SCH (17:11)
[2024-08-17 17:32] LABS: Potassium 3.2 mmol/L (3.5-5.1)
[2024-08-17 17:38] LABS: Magnesium 2.2 mg/dl (1.7-2.4); Phosphorus 1.4 mg/dl (2.5-4.9)
[2024-08-17] MEDS: POTASSIUM PHOSPHATE 30 MMOL in SODIUM CHLORIDE 0.9% 500 ML IV ONE (18:16)
[2024-08-18 06:05] LABS: Basophils # (auto) 0.05 K/uL (0.00-0.20); Basophils % (auto) 0.3 %; Eosinophils # (auto) 0.03 K/uL (0.00-0.50); Eosinophils % (auto) 0.2 %; Hematocrit (blood only) 32.5 % (37.0-47.0); Hemoglobin 10.9 g/dl (12.0-16.0); Immature Granulocytes # (auto) 0.24 K/uL (0.01-0.20); Immature Granulocytes % (auto) 1.2 %; Lymphocytes # (auto) 1.31 K/uL (1.20-3.40); Lymphocytes % (auto) 6.7 %; Mean Corpuscular Hemoglobin 29.9 pg (25.0-34.0); Mean Corpuscular Hgb Conc 33.5 g/dL (32.0-36.0); Mean Platelet Volume 10.6 fL (9.4-12.4); Monocytes # (auto) 1.32 K/uL (0.11-0.59); Monocytes % (auto) 6.7 %; Neutrophils # (auto) 16.64 K/uL (1.40-6.50); Neutrophils % (auto) 84.9 %; Platelet Count 217 K/uL (130-400); RDW Coefficient of Variation 14.3 % (11.5-14.5); RDW Standard Deviation 46.8 fL (36.4-46.3); Red Blood Count 3.65 M/uL (4.20-5.40); White Blood Count 19.59 K/ul (4.8-10.8)
[2024-08-18 06:19] LABS: BUN Creatinine Ratio 17.7 (10-20); Calcium 8.1 mg/dl (8.6-10.3); Magnesium 1.9 mg/dl (1.7-2.4); Phosphorus 2.2 mg/dl (2.5-4.9); Potassium 3.1 mmol/L (3.5-5.1)
[2024-08-18] MEDS ORDERED: POTASSIUM PHOS 3 MMOL/1 ML INFUSION IV STA (08:27)
[2024-08-18] MEDS: POTASSIUM PHOSPHATE 30 MMOL in SODIUM CHLORIDE 0.9% 500 ML IV ONE (09:43)
[2024-08-18] MEDS: HYDROmorphone INJ 1 MG/ML SYRINGE IV STA ×2 (13:19→18:10)
[2024-08-18] MEDS: OPTIRAY 320 100ml IV ONE (13:37)
--- NOTE | 2024-08-18 14:12 | CT Scan Report ---
CT OF THE ABDOMEN AND PELVIS WITH CONTRAST CLINICAL HISTORY: Worsening abdominal pain. COMPARISON STUDY: CT of the abdomen and pelvis August 15, 2024. TECHNIQUE: Following IV administration of 93 mL of Optiray, axial images of the abdomen and pelvis we re obtained from the lung bases to the proximal femurs. Images were reviewed in the axial, sagittal, and coronal planes. IV contrast was administered without complication. Automated exposure control wa s utilized for the study. A dose lowering technique was utilized adhering to the principles of ALARA . CT DOSE: 1368.78 mGy.cm FINDINGS: Small bilateral pleural effusions have increased in size prior CT. Associated lower lobe op acities favor atelectasis. There is no pneumatosis, free air or portal venous gas. There is no biliar y ductal dilatation status post cholecystectomy. Spleen, adrenal glands and kidneys are unremarkable with exception of several subcentimeter bilateral renal lesions. Mild gastric wall thickening is note d. Significantly diminished enhancement of the pancreatic body, tail and portions of the head is unch anged since CT of August 15, 2024. Residual enhancement within the uncinate process and pancreatic tail is unchanged. There is no gas within the pancreas or peripancreatic tissues. Peripancreatic fluid ex tending into the mesentery and anterior pararenal spaces has slightly decreased in volume since prior CT. Associated pelvic fluid has decreased. A 5.6 x 1.7 cm peripancreatic pocket of fluid within the mesentery on image 140 of 365 has minimal peripheral enhancement. This enhancement has developed sinc e prior CT. No well-defined fluid collections are present. There is no evidence for a bowel obstructi on. Major vasculature is patent. A 2.3 cm oval-shaped enhancing focus within the left lower quadrant on image 303 may represent a venous varix. IMPRESSION: 1. Findings consistent with acute necrotizing pancreatitis. Similar appearance of the pancreas to CT of August 15, 2024. 2. Peripancreatic fluid and inflammation extending into the mesentery, anterior pararenal spaces and pelvis, slightly decreased in volume since prior CT. 3. No well-defined fluid collections. 5.6 x 1.7 cm peripancreatic pocket of fluid within the mesenter y with mild peripheral enhancement. This could represent a developing acute peripancreatic necrotic c ollection. 4. Increase in small bilateral pleural effusions. ACT 112: Negative or not required by law. Electronically signed by: Jacob Castaneda M.D. 08/18/2024 2:11 PM
[2024-08-18] MEDS ORDERED: VANCOMYCIN CONSULT ACTIVE PRN (16:41)
[2024-08-18] MEDS ORDERED: VANCOMYCIN HCL 1,000 MG/270 ML BAG IV SCH (16:45)
[2024-08-18] MEDS: VANCOMYCIN HCL 1,750 MG in SODIUM CHLORIDE 0.9% 500 ML IV ONE (18:11)
--- NOTE | 2024-08-18 19:26 | Hospitalist Progress Note ---
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, acquired pes planovalgus of left foot, hypertension, vitamin D deficiency, vitamin B12 deficiency, peripheral neuropathy, GERD, one episode of non-ETOH, non-gallstone pancreatitis that occurred 28 years ago, and recent diagnosis of acute influenza A infection (08/09/2024) associated with progressive SOB, cough productive of yellow-green phlegm, and sore throat, followed by empiric treatment with Medrol Dosepak and antibiotics, followed by decreased SOB and cough productive of intermittent clear phlegm, who presented to [facility] ER on 08/13/2024 with 24 hours of acute abdominal pain, nausea without vomiting. Patient was subsequently admitted to the inpatient hospitalist service @ [facility] on 08/13/2024 with the following diagnosis: 1. Acute non-ETOH, non-gallstone pancreatitis, most likely precipitated by acute influenza A infection/PNA. #Acute non-ETOH, non-gallstone pancreatitis, subsequently defined as necrotizing pancreatitis - CT abdomen pelvis (08/13/2024, 9:05pm): acute pancreatitis; cf., repeat CT abdomen pelvis (08/15/2024, 9:27am): acute necrotizing pancreatitis, some ascites, no obstruction) - remains NPO, but will trial ice chips and small sips today, advance diet slowly - Lipase 9409, follow serially, trending down - due to significant rise in WBC, rpt CT abd / pelvis obtained which showed necrotizing pancreatitis. started on Zosyn on 08/15/24, will continue at this time - Zofran 4 mg IV every 6 hours as needed - Phenergan 12.5 mg IV every 6 hours needed for nausea vomiting not relieved by Zofran - Pantoprazole 40 mg IV daily - NS on hold as pt started clear liquid diet today (tolerating) - scheduled PO liquid tylenol ATC - Narcan IV per protocol - T hemoglobin A1c: 5.7 - as patient reports no clinical improvement in her 10/10 generalized abdominal pains and her WBC has actually increased from 18.69 (08/13/2024, 8:40pm) to 19.59 (08/18/2024, 5:41am), I have opted to screen for MRSA (nares)(08/18/2024, 4:38pm) and then to start patient empirically on vancomycin 1.75g IV x 1 dose now (08/18/2024, 5:00pm), followed by vancomycin 1.25g IV q12 (08/19/2024, 5:00am), and I will check repeat vitals, abdominal exam, WBC with differential in the 08/19/2024 am. - if patient's reports of generalized abdominal pains remain unchanged tomorrow, I will D/C zosyn 4.5g IV q8 (08/16/2024, 2:15am) and in its place, I will start meropenem 500mg IV q6 in the 08/19/2024 am. In the interim, in order to provide more effective analgesia in this patient reporting 10/10 generalized abdominal pains on 08/18/2024, I have already ordered/administered dilaudid 1mg IV x 1 dose (08/18/2024, 6:10pm). I have also discontinued dilaudid 0.2 mg IV to q4h prn mod pain and dilaudid 0.4 mg IV to q6h prn severe pain and in their place, I have started dilaudid 1mg IV q1h prn pain 6-10 on 08/18/2024,6:09pm. #OIC - senna daily and prn bisacodyl suppository #Influenza A - cont Oseltamivir, last dose 08/18/24 - incentive spirometry #Electrolyte disturbances- - Potassium 2.9, and magnesium 1.4 on admission - electrolytes improving with repletion #Hyperglycemia- - Glucose 162 on admission - A1c: 5.7 #GERD- - IV PPI #Chronic medical conditions: - B12 deficiency-temporarily hold supplementation - Vitamin D3 deficiency-temporarily hold supplementation - Peripheral neuropathy-Temporarily hold gabapentin - Hypertension- Temporarily holding losartan, prn labetalol ordered Dispo: pending clinical improvement 08/14: updated pt's daughter 08/15: pt's granddaughter at bedside, also updated pt's daughter via conference call 3/2: pt's daughter at bedside 3/3: pt's daughter at bedside 3/4: pt's daughter and pt's 2 brothers at bedside Admission and Anticipated Discharge Date Admission Date: August 13, 2024 Subjective No acute events overnight Still having 10 out of 10 generalized across the abdomen (bilateral, all 4 quadrants involved) pain but noted to be mostly when awake. Pain is more diffuse and less focused around epigastric region She had clears this morning, appears to be tolerating Not passing flatus or BM since 08/13/2024 (though have not been taking in any oral intake); instead, patient reports eructation on 08/18/2024. Patient also reports that since administration of zosyn 4.5g IV x 1 dose (08/15/2024, 9:28pm), followed by zosyn 4.5g IV q8 (08/16/2024, 2:15am), sandoval miner's 10/10 abdominal pains have NOT worsened and have NOT improved. Review of Systems Constitutional: Negative for antecedent/coincident fevers, chills, diaphoresis, shortness of breath, dyspnea on exertion, cough, wheeze, sore throat, hemoptysis, chest pains, palpitations, pleurisy, nausea, vomiting, diarrhea, abdominal pain, pelvic pain, hematemesis, hematochezia, melena, hematuria, dysuria, frequency, urgency, headaches, dizziness, lightheadedness, visual changes, hearing changes, weakness, falls, syncope, trauma, travel history, sick contacts, or food/drug ingestions novel or new. All other review of systems are reported as negative by the patient on 08/18/2024. Physical Exam Constitutional: General: Comfortable, coherent, cooperative. Wide awake and alert. Not confused, lethargic, or obtunded. Patient speaks in complete, fluent, and articulate sentences without pause, interruption, cough, or wheeze. HEENT: Normocephalic, atraumatic. Pupils equally round and reactive to light. Extra-ocular muscles intact. No nystagmus, gaze paresis, anisocoria, miosis, mydriasis, hyphema, scleral injection, conjunctivitis, or pterygium. No rhinorrhea or otorrhea. No pharyngeal discharge or erythema. Neck: Supple, no stridor, bruit, goiter, hepatojugular reflux. Jugular venous pressure is estimated to be 8 cm above the sternal angle of Juan, which is estimated to be 5 cm above the level of the right atrium. Lymph: No anterior/posterior cervical, supraclavicular/infraclavicular, axillary, epitrochlear, or inguinal adenopathy. Chest: Symmetric rise and fall with respirations. Lungs: Clear to auscultation and percussion. No audible expiratory wheeze, egophony, pectoriloquy, increase in tactile fremitus, or flatness/dullness to percussion at the bases. Heart: RRR, S1 and S2 noted. No S3 or S4 summation gallop noted. No tripartite friction rub. Grade II/ early systolic murmur @ LLSB without radiation to the carotids, axilla, or back, and which remains invariant in regards to the respiratory cycle. Abdomen: Soft, generalized tenderness, non-distended. No rebound, guarding, Dillon's sign, or organomegaly. Bowel sounds sounds auscultated in all 4 quadrants. Extremities: No clubbing, cyanosis, or edema. 2+ pedal pulses bilaterally. Skin: No decubitus ulcer, exanthem, or enanthem. Neurology: Alert and oriented to person, place, time, and situation. DTR+ and symmetric. 5/5 motor strength in all 4 extremities, both proximally and distally. No pronator drift. No facial droop. No tremors, tics, or myoclonus. Urology: No jeffery. No urethral discharge. Psychiatry: No suicidal ideation. No homicidal ideation. Results & Data Results & Data Vital Signs (Past 12 Hours) Vital Signs Temp Pulse Pulse Resp BP Pulse Ox O2 Del Method 08/18/24 15:05 36.9 C 89 20 160/86 H 96 Nasal Cannula 08/18/24 11:00 36.5 C 90 18 144/83 H 95 Nasal Cannula 08/18/24 08:00 85 O2 Flow Rate 08/18/24 15:05 2 08/18/24 11:00 08/18/24 08:00 Laboratory Results Abnormal lab results 08/17/24 08/18/24 08/18/24 Range/Units 23:44 05:41 06:25 WBC 19.59 H (4.8-10.8) K/ul RBC 3.65 L (4.20-5.40) M/uL Hgb 10.9 L (12.0-16.0) g/dl Hct 32.5 L (37.0-47.0) % RDW Std Deviation 46.8 H (36.4-46.3) fL Neut # (Auto) 16.64 H (1.40-6.50) K/uL Sutter # (Auto) 1.32 H (0.11-0.59) K/uL Immature Gran # (Auto) 0.24 H (0.01-0.20) K/uL Sodium 148 H (136-145) mmol/L Potassium 3.1 L (3.5-5.1) mmol/L Chloride 115 H (98-107) mmol/L Glucose 198 H (70-99(Fasting)) mg/dl POC Glucose 143 H 188 H (70-99) mg/dl Calcium 8.1 L (8.6-10.3) mg/dl Phosphorus 2.2 L (2.5-4.9) mg/dl 08/18/24 08/18/24 Range/Units 11:58 16:55 WBC (4.8-10.8) K/ul RBC (4.20-5.40) M/uL Hgb (12.0-16.0) g/dl Hct (37.0-47.0) % RDW Std Deviation (36.4-46.3) fL Neut # (Auto) (1.40-6.50) K/uL Sutter # (Auto) (0.11-0.59) K/uL Immature Gran # (Auto) (0.01-0.20) K/uL Sodium (136-145) mmol/L Potassium (3.5-5.1) mmol/L Chloride (98-107) mmol/L Glucose (70-99(Fasting)) mg/dl POC Glucose 195 H 176 H (70-99) mg/dl Calcium (8.6-10.3) mg/dl Phosphorus (2.5-4.9) mg/dl Diagnostic Findings Abdomen/Pelvis CT 08/18/24 12:38 CT OF THE ABDOMEN AND PELVIS WITH CONTRAST CLINICAL HISTORY: Worsening abdominal pain. COMPARISON STUDY: CT of the abdomen and pelvis August 15, 2024. TECHNIQUE: Following IV administration of 93 mL of Optiray, axial images of the abdomen and pelvis were obtained from the lung bases to the proximal femurs. Images were reviewed in the axial, sagittal, and coronal planes. IV contrast was administered without complication. Automated exposure control was utilized for the study. A dose lowering technique was utilized adhering to the principles of ALARA. CT DOSE: 1368.78 mGy.cm FINDINGS: Small bilateral pleural effusions have increased in size prior CT. Associated lower lobe opacities favor atelectasis. There is no pneumatosis, free air or portal venous gas. There is no biliary ductal dilatation status post cholecystectomy. Spleen, adrenal glands and kidneys are unremarkable with exception of several subcentimeter bilateral renal lesions. Mild gastric wall thickening is noted. Significantly diminished enhancement of the pancreatic body, tail and portions of the head is unchanged since CT of August 15, 2024. Residual enhancement within the uncinate process and pancreatic tail is unchanged. There is no gas within the pancreas or peripancreatic tissues. Peripancreatic fluid extending into the mesentery and anterior pararenal spaces has slightly decreased in volume since prior CT. Associated pelvic fluid has decreased. A 5.6 x 1.7 cm peripancreatic pocket of fluid within the mesentery on image 140 of 365 has minimal peripheral enhancement. This enhancement has developed since prior CT. No well-defined fluid collections are present. There is no evidence for a bowel obstruction. Major vasculature is patent. A 2.3 cm oval-shaped enhancing focus within the left lower quadrant on image 303 may represent a venous varix. IMPRESSION: 1. Findings consistent with acute necrotizing pancreatitis. Similar appearance of the pancreas to CT of August 15, 2024. 2. Peripancreatic fluid and inflammation extending into the mesentery, anterior pararenal spaces and pelvis, slightly decreased in volume since prior CT. 3. No well-defined fluid collections. 5.6 x 1.7 cm peripancreatic pocket of fluid within the mesentery with mild peripheral enhancement. This could represent a developing acute peripancreatic necrotic collection. 4. Increase in small bilateral pleural effusions. ACT 112: Negative or not required by law. Electronically signed by: Jacob Castaneda M.D. 08/18/2024 2:11 PM PG Care Time/CCT Total # of Minutes Spent Total Time Spent with Patient: Total time spent is greater than 50% in coordination of care (as documented) at patient's floor/unit and/or counseling patient: Coding Level of Care Code 83421 SUB INP/OBS CARE 3/50MIN Diagnoses Pancreatitis K85.90 Influenza A J10.1 Hypokalemia E87.6 Hypomagnesemia E83.42
[2024-08-18] MEDS: HYDROmorphone INJ 1 MG/ML SYRINGE IV PRN (19:45)
[2024-08-19] MEDS: VANCOMYCIN HCL 1,250 MG in SODIUM CHLORIDE 0.9% 250 ML IV SCH (05:06)
[2024-08-19 08:53] LABS: Basophils # (auto) 0.04 K/uL (0.00-0.20); Basophils % (auto) 0.2 %; Eosinophils # (auto) 0.05 K/uL (0.00-0.50); Eosinophils % (auto) 0.3 %; Hemoglobin 10.4 g/dl (12.0-16.0); Immature Granulocytes # (auto) 0.44 K/uL (0.01-0.20); Immature Granulocytes % (auto) 2.3 %; Lymphocytes # (auto) 1.25 K/uL (1.20-3.40); Lymphocytes % (auto) 6.4 %; Mean Corpuscular Hemoglobin 30.1 pg (25.0-34.0); Mean Corpuscular Hgb Conc 33.5 g/dL (32.0-36.0); Mean Corpuscular Volume 89.9 fL (80.0-100.0); Mean Platelet Volume 10.6 fL (9.4-12.4); Monocytes % (auto) 7.7 %; Neutrophils # (auto) 16.26 K/uL (1.40-6.50); Neutrophils % (auto) 83.1 %; Platelet Count 216 K/uL (130-400); RDW Coefficient of Variation 14.4 % (11.5-14.5); RDW Standard Deviation 47.5 fL (36.4-46.3); Red Blood Count 3.45 M/uL (4.20-5.40); White Blood Count 19.54 K/ul (4.8-10.8)
[2024-08-19 09:14] LABS: BUN Creatinine Ratio 12.3 (10-20); Calcium 8.1 mg/dl (8.6-10.3); Creatinine Clr Calc Pharmacy 81.7 ml/min; Magnesium 1.7 mg/dl (1.7-2.4); Potassium 3.1 mmol/L (3.5-5.1)
[2024-08-19] MEDS ORDERED: POTASSIUM PHOS 3 MMOL/1 ML INFUSION IV STA (11:00)
--- NOTE | 2024-08-19 12:12 | Pharmacy Report ---
Pharmacy PK ABX Note - Date of Service August 19, 2024 - Assessment and Plan Assessment 74 year old F receiving empiric Zosyn for treatment of acute necrotizing pancreatitis is now also ordered vancomycin due to persistent 10/10 generalized abdominal pain and ongoing leukocytosis. Pertinent microbiologic data includes: negative MRSA nasal swab. Patient afebrile, renal function stable at/near baseline. Day # 2 of antimicrobial therapy. Plan Vancomycin * Loading dose: 1750 mg IV x 1 * Maintenance dose: 1250 mg IV every 12 hours * Regimen is predicted to achieve target AUC/KERLINE of 400-600 mg/L.hr * Random level ordered for: 08/21/24 Pharmacy will continue to follow and will adjust dose/frequency as necessary. Thank you. Pharmacy has transitioned to AUC monitoring for vancomycin. AUC/KERLINE is the preferred PK/PD target and is associated with decreased risk of nephrotoxicity compared to traditional trough targets.
[2024-08-19] MEDS: HYDROmorphone INJ 1 MG/ML SYRINGE IV STA (12:18)
[2024-08-19] MEDS: MAGNESIUM SULFATE / D5W 1 GM/100 ML BAG IV SCH (12:25)
[2024-08-19] MEDS: MEROPENEM 500 MG in SYRINGE 0 ML IV SCH (14:13)
[2024-08-19] MEDS: POTASSIUM PHOSPHATE 30 MMOL in SODIUM CHLORIDE 0.9% 500 ML IV ONE (14:20)
[2024-08-20 06:30] LABS: Basophils # (auto) 0.03 K/uL (0.00-0.20); Basophils % (auto) 0.2 %; Eosinophils # (auto) 0.11 K/uL (0.00-0.50); Eosinophils % (auto) 0.7 %; Hematocrit (blood only) 28.7 % (37.0-47.0); Hemoglobin 9.7 g/dl (12.0-16.0); Immature Granulocytes # (auto) 0.55 K/uL (0.01-0.20); Immature Granulocytes % (auto) 3.4 %; Lymphocytes # (auto) 1.56 K/uL (1.20-3.40); Lymphocytes % (auto) 9.6 %; Mean Corpuscular Hemoglobin 29.8 pg (25.0-34.0); Mean Corpuscular Hgb Conc 33.8 g/dL (32.0-36.0); Mean Corpuscular Volume 88.3 fL (80.0-100.0); Mean Platelet Volume 10.3 fL (9.4-12.4); Monocytes # (auto) 1.27 K/uL (0.11-0.59); Monocytes % (auto) 7.8 %; Neutrophils # (auto) 12.77 K/uL (1.40-6.50); Neutrophils % (auto) 78.3 %; Platelet Count 192 K/uL (130-400); RDW Coefficient of Variation 14.3 % (11.5-14.5); RDW Standard Deviation 46.3 fL (36.4-46.3); Red Blood Count 3.25 M/uL (4.20-5.40); White Blood Count 16.29 K/ul (4.8-10.8)
[2024-08-20 06:56] LABS: Calcium 7.7 mg/dl (8.6-10.3); Creatinine Clr Calc Pharmacy 106.2 ml/min; Magnesium 2.1 mg/dl (1.7-2.4); Phosphorus 2.5 mg/dl (2.5-4.9)
[2024-08-20 08:13] LABS: Albumin Level 2.8 gm/dl (3.4-5.0)
[2024-08-20] MEDS: POTASSIUM CHLORIDE CRTAB 20 MEQ TABCR PO STA (09:18)
[2024-08-20] MEDS: POTASSIUM CHLORIDE CRTAB 20 MEQ TABCR PO SCH (09:58)
--- NOTE | 2024-08-20 17:00 | Hospitalist Progress Note ---
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, acquired pes planovalgus of left foot, hypertension, vitamin D deficiency, vitamin B12 deficiency, peripheral neuropathy, GERD, one episode of non-ETOH, non-gallstone pancreatitis that occurred 28 years ago, and recent diagnosis of acute influenza A infection (08/09/2024) associated with progressive SOB, cough productive of yellow-green phlegm, and sore throat, followed by empiric treatment with Medrol Dosepak and antibiotics, followed by decreased SOB and cough productive of intermittent clear phlegm, who presented to [facility] ER on 08/13/2024 with 24 hours of acute abdominal pain, nausea without vomiting. Patient was subsequently admitted to the inpatient hospitalist service @ [facility] on 08/13/2024 with the following diagnosis: 1. Acute non-ETOH, non-gallstone pancreatitis, most likely precipitated by acute influenza A infection/PNA. #Acute non-ETOH, non-gallstone pancreatitis, subsequently defined as necrotizing pancreatitis - CT abdomen pelvis (08/13/2024, 9:05pm): acute pancreatitis; cf., repeat CT abdomen pelvis (08/15/2024, 9:27am): acute necrotizing pancreatitis, some ascites, no obstruction) - remains NPO, but will trial ice chips and small sips today, advance diet slowly - Lipase 9409, follow serially, trending down - due to significant rise in WBC, rpt CT abd / pelvis obtained which showed necrotizing pancreatitis. started on Zosyn on 08/15/24, will continue at this time - Zofran 4 mg IV every 6 hours as needed - Phenergan 12.5 mg IV every 6 hours needed for nausea vomiting not relieved by Zofran - Pantoprazole 40 mg IV daily - NS on hold as pt started clear liquid diet today (tolerating) - scheduled PO liquid tylenol ATC - Narcan IV per protocol - T hemoglobin A1c: 5.7 - as patient reports no clinical improvement in her 10/10 generalized abdominal pains and her WBC has actually increased from 18.69 (08/13/2024, 8:40pm) to 19.59 (08/18/2024, 5:41am), I opted to screen for MRSA (nares)(08/18/2024, 4:38pm) and then to start patient empirically on vancomycin 1.75g IV x 1 dose now (08/18/2024, 5:00pm), followed by vancomycin 1.25g IV q12 (08/19/2024, 5:00am), and I will check repeat vitals, abdominal exam, WBC with differential in the 08/20/2024 am. - as the patient's reports of generalized abdominal pains remain unchanged, I have opted to D/C zosyn 4.5g IV q8 (08/16/2024, 2:15am) and in its place, I am starting patient on meropenem 500mg IV q6 (08/19/2024, 2:13pm).. In the interim, in order to provide more effective analgesia in this patient reporting 10/10 generalized abdominal pains on 08/19/2024, I had already discontinued dilaudid 0.2 mg IV to q4h prn mod pain and dilaudid 0.4 mg IV to q6h prn severe pain and in their place, I started patient on dilaudid 1mg IV q1h prn pain 6-10 on 08/18/2024, 6:09pm. #OIC - senna daily and prn bisacodyl suppository #Influenza A - cont Oseltamivir, last dose 08/18/24 - incentive spirometry #Electrolyte disturbances- - Potassium 2.9, and magnesium 1.4 on admission - electrolytes improving with repletion #Hyperglycemia- - Glucose 162 on admission - A1c: 5.7 #GERD- - IV PPI #Chronic medical conditions: - B12 deficiency-temporarily hold supplementation - Vitamin D3 deficiency-temporarily hold supplementation - Peripheral neuropathy-Temporarily hold gabapentin - Hypertension- Temporarily holding losartan, prn labetalol ordered Dispo: pending clinical improvement 08/14: updated pt's daughter 08/15: pt's granddaughter at bedside, also updated pt's daughter via conference call 08/16: pt's daughter at bedside 08/17: pt's daughter at bedside 08/18: pt's daughter and pt's 2 brothers at bedside 08/19: pt's daughter at bedside Admission and Anticipated Discharge Date Admission Date: August 13, 2024 Subjective No acute events overnight Not passing flatus or BM since 08/13/2024 (though have not been taking in any oral intake); instead, patient reported eructation on 08/18/2024. Patient reports no eructation on 08/19/2024. Patient also reports that since administration of zosyn 4.5g IV x 1 dose (08/15/2024, 9:28pm), followed by zosyn 4.5g IV q8 (08/16/2024, 2:15am), patient's 03/26 abdominal pains have remained unchanged at 03/26 on 08/19/2024. Review of Systems Constitutional: Negative for antecedent/coincident fevers, chills, diaphoresis, shortness of breath, dyspnea on exertion, cough, wheeze, sore throat, hemoptysis, chest pains, palpitations, pleurisy, nausea, vomiting, diarrhea, abdominal pain, pelvic pain, hematemesis, hematochezia, melena, hematuria, dysuria, frequency, urgency, headaches, dizziness, lightheadedness, visual changes, hearing changes, weakness, falls, syncope, trauma, travel history, sick contacts, or food/drug ingestions novel or new. All other review of systems are reported as negative by the patient on 08/19/2024. Physical Exam Constitutional: General: Comfortable, coherent, cooperative. Wide awake and alert. Not confused, lethargic, or obtunded. Patient speaks in complete, fluent, and articulate sentences without pause, interruption, cough, or wheeze. HEENT: Normocephalic, atraumatic. Pupils equally round and reactive to light. Extra-ocular muscles intact. No nystagmus, gaze paresis, anisocoria, miosis, mydriasis, hyphema, scleral injection, conjunctivitis, or pterygium. No rhinorrhea or otorrhea. No pharyngeal discharge or erythema. Neck: Supple, no stridor, bruit, goiter, hepatojugular reflux. Jugular venous pressure is estimated to be 8 cm above the sternal angle of Juan, which is estimated to be 5 cm above the level of the right atrium. Lymph: No anterior/posterior cervical, supraclavicular/infraclavicular, axillary, epitrochlear, or inguinal adenopathy. Chest: Symmetric rise and fall with respirations. Lungs: Clear to auscultation and percussion. No audible expiratory wheeze, egophony, pectoriloquy, increase in tactile fremitus, or flatness/dullness to percussion at the bases. Heart: RRR, S1 and S2 noted. No S3 or S4 summation gallop noted. No triparti te friction rub. Grade II/ early systolic murmur @ LLSB without radiation to the carotids, axilla, or back, and which remains invariant in regards to the respiratory cycle. Abdomen: Soft, generalized tenderness, non-distended. No rebound, guarding, Dillon's sign, or organomegaly. Bowel sounds sounds auscultated in all 4 quadrants. Extremities: No clubbing, cyanosis, or edema. 2+ pedal pulses bilaterally. Skin: No decubitus ulcer, exanthem, or enanthem. Neurology: Alert and oriented to person, place, time, and situation. DTR+ and symmetric. 5/5 motor strength in all 4 extremities, both proximally and distally. No pronator drift. No facial droop. No tremors, tics, or myoclonus. Urology: No jeffery. No urethral discharge. Psychiatry: No suicidal ideation. No homicidal ideation. Results & Data Results & Data Vital Signs (Past 12 Hours) Vital Signs Temp Pulse Pulse Resp BP BP Pulse Ox 08/20/24 16:32 36.8 C 84 18 155/88 H 93 08/20/24 14:00 80 08/20/24 12:20 36.5 C 80 16 162/84 H 92 08/20/24 08:55 08/20/24 07:27 36.9 C 77 16 152/89 H 94 08/20/24 07:00 65 O2 Del Method 08/20/24 16:32 Room Air 08/20/24 14:00 08/20/24 12:20 Nasal Cannula 08/20/24 08:55 Room Air 08/20/24 07:27 Nasal Cannula 08/20/24 07:00 PG Care Time/CCT Total # of Minutes Spent Total Time Spent with Patient: Total time spent is greater than 50% in coordination of care (as documented) at patient's floor/unit and/or counseling patient: Coding Level of Care Code 30284 SUB INP/OBS CARE 235MIN Diagnoses Pancreatitis K85.90 Influenza A J10.1 Hypokalemia E87.6 Hypomagnesemia E83.42
--- NOTE | 2024-08-20 17:25 | Hospitalist Progress Note ---
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 ER on 08/13/2024 with 24 hours of acute abdominal pain, nausea without vomiting. Patient was subsequently admitted to the inpatient hospitalist service @ [facility] on 08/13/2024 with the following diagnosis: 1. Acute non-ETOH, non-gallstone pancreatitis, most likely precipitated by acute influenza A infection/PNA. #Acute non-ETOH, non-gallstone pancreatitis, subsequently defined as necrotizing pancreatitis - CT abdomen pelvis (08/13/2024, 9:05pm): acute pancreatitis; cf., repeat CT abdomen pelvis (08/15/2024, 9:27am): acute necrotizing pancreatitis, some ascites, no obstruction) - remains NPO, but will trial ice chips and small sips today, advance diet slowly - Admission lipase 9409 U/L (08/13/2024, 8:40pm) has trended down progressively to 2,291 U/L (08/14/2024, 6:39am) to 1,084 U/L (08/15/2024, 6:16am) to 314 U/L (08/16/2024, 7:15am) to almost normal 96 U/L (08/17/2024, 5:54am). - due to significant rise in WBC, rpt CT abd / pelvis obtained which showed necrotizing pancreatitis. Patient was started empirically on zosyn 4.5g IV x 1 dose (08/15/2024, 9:28pm), followed by zosyn 4.5g IV q8 (08/16/2024, 2:15am). - Zofran 4 mg IV every 6 hours as needed - Phenergan 12.5 mg IV every 6 hours needed for nausea vomiting not relieved by Zofran - Pantoprazole 40 mg IV daily - NS on hold as pt started clear liquid diet today (tolerating) - scheduled PO liquid tylenol ATC - Narcan IV per protocol - T hemoglobin A1c: 5.7 - as patient reported no clinical improvement in her 10/10 generalized abdominal pains and her WBC actually increased from 18.69 (08/13/2024, 8:40pm) to 19.59 (08/18/2024, 5:41am), I opted to screen for MRSA (nares)(08/18/2024, 4:38pm). I also started patient empirically on vancomycin 1.75g IV x 1 dose (08/18/2024, 5:00pm), followed by vancomycin 1.25g IV q12 (08/19/2024, 5:00am). - as the patient's reports of generalized abdominal pains remained unchanged on 08/19/2024, I opted to D/C zosyn 4.5g IV q8 (08/16/2024, 2:15am) and in its place, I started patient on meropenem 500mg IV q6 (08/19/2024, 2:13pm). In the interim, in order to provide more effective analgesia in this patient reporting 10/10 generalized abdominal pains on 08/19/2024, I had already discontinued dilaudid 0.2 mg IV to q4h prn moderate pain and dilaudid 0.4 mg IV to q6h prn severe pain and in their place, I started patient on dilaudid 1mg IV q1h prn pain 6-10 on 08/18/2024, 6:09pm. - since this patient was admitted to [facility] on 08/13/2024 with an admission WBC 18.69 (08/13/2024, 8:40pm), patient's WBC has declined to 16.29 (08/20/2024, 5:48am) after starting patient on meropenem 500mg IV q6 (08/19/2024, 2:13pm). Hence, I surmise that zosyn was ineffective in treating patient's acute necrotizing pancreatitis. I also surmise that vancomycin 1.25g IV q12 (08/19/2024, 5:00am) is also ineffective in treating patient's acute necrotizing pancreatitis. Hence, I have opted to D/C vancomycin 1.25g IV q12 on 08/20/2024, after patient received her third dose of vancomycin 1.25g IV q12 on 08/20/2024, 5:24am, while continuing meropenem 500mg IV q6 (08/19/2024, 2:13pm), and I will check vitals, abdominal exam, WBC with differential, lactic acid, and procalcitonin levels in the 08/21/2024 am. cf., WBC 18.69 (08/13/2024, 8:40pm)(admission). cf., WBC 12.60 (08/14/2024, 6:39am). cf., WBC 22.79 (08/15/2024, 6:16am). cf., WBC 19.07 (08/16/2024, 7:15am). cf., WBC 21.34 (08/17/2024, 5:54am). cf., WBC 19.59 (08/18/2024, 5:41am). cf., WBC 19.54 (08/19/2024, 8:35am). cf., WBC 16.29 (08/20/2024, 5:48am). cf., lactic acid #1 1.2 mmol/L (08/18/2024, 4:54pm). cf., lactic acid #2 1.9 mmol/L (08/19/2024, 8:35am). cf., lactic acid #3 0.7 mmol/L (08/20/2024, 8:08am). cf., procalcitonin #1 0.22 ng/mL (08/18/2024, 4:54pm). cf., procalcitonin #2 0.24 ng/mL (08/19/2024, 8:35am). cf., procalcitonin #3 0.28 ng/mL (08/20/2024, 8:04am). #OIC - senna daily and prn bisacodyl suppository #Influenza A - cont Oseltamivir, last dose 08/18/24 - incentive spirometry #RECURRENT acute hypokalemia cf., K 2.9 mmol/L (08/13/2024, 8:40pm)(admission) cf., K 3.6 mmol/L (08/14/2024, 6:39am) cf., K 4.0 mmol/L (08/15/2024, 6:16am) cf., K 3.3 mmol/L (08/16/2024, 7:15am) cf., K 3.2 mmol/L (08/17/2024, 5:54am) cf., K 3.2 mmol/L (08/17/2024, 4:54pm) cf., K 3.1 mmol/L (08/18/2024, 5:41am) cf., K 3.1 mmol/L (08/19/2024, 8:35am) cf., K 3.0 mmol/L (08/20/2024, 5:48am). Supplement with KCl 40meq PO bid x 2 doses (08/20/2024, 9:58am) and check post- supplement K level in the 08/21/2024 am. #Acute hypomagnesemia cf., Mg 1.4 mg/dL (08/13/2024, 8:40pm)(admission) cf., Mg 2.1 mg/dL (08/20/2024, 5:48am) #Hyperglycemia- - Glucose 162 on admission - A1c: 5.7 #GERD- - IV PPI #Chronic medical conditions: - B12 deficiency-temporarily hold supplementation - Vitamin D3 deficiency-temporarily hold supplementation - Peripheral neuropathy-Temporarily hold gabapentin - Hypertension- Temporarily holding losartan, prn labetalol ordered Dispo: pending clinical improvement 08/14: updated pt's daughter 08/15: pt's granddaughter at bedside, also updated pt's daughter via conference call 08/16: pt's daughter at bedside 08/17: pt's daughter at bedside 08/18: pt's daughter and pt's 2 brothers at bedside 08/19: pt's daughter at bedside Admission and Anticipated Discharge Date Admission Date: August 13, 2024 Subjective No acute events overnight Not passing flatus or BM since 08/13/2024 (though have not been taking in any oral intake); instead, patient reported eructation on 08/18/2024. Patient reports no eructation on 08/19/2024 or on 08/20/2024. Patient also reports that since administration of zosyn 4.5g IV x 1 dose (08/15/2024, 9:28pm), followed by zosyn 4.5g IV q8 (08/16/2024, 2:15am), patient's 10/10 abdominal pains on 08/19/2024 have decreased to 6/10 abdominal pains on 08/20/2024. Review of Systems Constitutional: Negative for antecedent/coincident fevers, chills, diaphoresis, shortness of breath, dyspnea on exertion, cough, wheeze, sore throat, hemoptysis, chest pains, palpitations, pleurisy, nausea, vomiting, diarrhea, abdominal pain, pelvic pain, hematemesis, hematochezia, melena, hematuria, dysuria, frequency, urgency, headaches, dizziness, lightheadedness, visual changes, hearing changes, weakness, falls, syncope, trauma, travel history, sick contacts, or food/drug ingestions novel or new. All other review of systems are reported as negative by the patient on 08/20/2024. Physical Exam Constitutional: General: Comfortable, coherent, cooperative. Wide awake and alert. Not confused, lethargic, or obtunded. Patient speaks in complete, fluent, and articulate sentences without pause, interruption, cough, or wheeze. HEENT: Normocephalic, atraumatic. Pupils equally round and reactive to light. Extra-ocular muscles intact. No nystagmus, gaze paresis, anisocoria, miosis, mydriasis, hyphema, scleral injection, conjunctivitis, or pterygium. No rhinorrhea or otorrhea. No pharyngeal discharge or erythema. Neck: Supple, no stridor, bruit, goiter, hepatojugular reflux. Jugular venous pressure is estimated to be 8 cm above the sternal angle of Juan, which is estimated to be 5 cm above the level of the right atrium. Lymph: No anterior/posterior cervical, supraclavicular/infraclavicular, axillary, epitrochlear, or inguinal adenopathy. Chest: Symmetric rise and fall with respirations. Lungs: Clear to auscultation and percussion. No audible expiratory wheeze, egophony, pectoriloquy, increase in tactile fremitus, or flatness/dullness to percussion at the bases. Heart: RRR, S1 and S2 noted. No S3 or S4 summation gallop noted. No tripartite friction rub. Grade II/ early systolic murmur @ LLSB without radiation to the carotids, axilla, or back, and which remains invariant in regards to the respiratory cycle. Abdomen: Soft, non-tender, non-distended. No rebound, guarding, Dillon's sign, or organomegaly. Bowel sounds sounds auscultated in all 4 quadrants. Extremities: No clubbing, cyanosis, or edema. 2+ pedal pulses bilaterally. Skin: No decubitus ulcer, exanthem, or enanthem. Neurology: Alert and oriented to person, place, time, and situation. DTR+ and symmetric. 5/5 motor strength in all 4 extremities, both proximally and distally. No pronator drift. No facial droop. No tremors, tics, or myoclonus. Urology: No jeffery. No urethral discharge. Psychiatry: No suicidal ideation. No homicidal ideation. Results & Data Results & Data Vital Signs (Past 12 Hours) Vital Signs Temp Pulse Pulse Resp BP BP Pulse Ox 08/20/24 16:32 36.8 C 84 18 155/88 H 93 08/20/24 14:00 80 08/20/24 12:20 36.5 C 80 16 162/84 H 92 08/20/24 08:55 08/20/24 07:27 36.9 C 77 16 152/89 H 94 08/20/24 07:00 65 O2 Del Method 08/20/24 16:32 Room Air 08/20/24 14:00 08/20/24 12:20 Nasal Cannula 08/20/24 08:55 Room Air 08/20/24 07:27 Nasal Cannula 08/20/24 07:00 Laboratory Results 08/20/24 08/20/24 08/20/24 08:08 08:04 05:48 WBC 16.29 H RBC 3.25 L Hgb 9.7 L Hct 28.7 L MCV 88.3 MCH 29.8 MCHC 33.8 RDW Std Deviation 46.3 RDW Coeff of [place] 14.3 Plt Count 192 MPV 10.3 Immature Gran % (Auto) 3.4 Neut % (Auto) 78.3 Lymph % (Auto) 9.6 [place] % (Auto) 7.8 Eos % (Auto) 0.7 Baso % (Auto) 0.2 Neut # (Auto) 12.77 H Lymph # (Auto) 1.56 [place] # (Auto) 1.27 H Eos # (Auto) 0.11 Baso # (Auto) 0.03 Immature Gran # (Auto) 0.55 H Sodium 146 H Potassium 3.0 L Chloride 107 Carbon Dioxide 35 H Anion Gap 4 BUN 7 Creatinine 0.50 L Est Cr Clr Drug Dosing 106.2 eGFR 98.97 BUN/Creatinine Ratio 14.0 Glucose 148 H Lactate 0.7 Calcium 7.7 L Phosphorus 2.5 Magnesium 2.1 Albumin 2.8 L Procalcitonin 0.28 Stl C. diff Tox B Gene 08/20/24 03:57 WBC RBC Hgb Hct MCV MCH MCHC RDW Std Deviation RDW Coeff of Jerome Plt Count MPV Immature Gran % (Auto) Neut % (Auto) Lymph % (Auto) [place] % (Auto) Eos % (Auto) Baso % (Auto) Neut # (Auto) Lymph # (Auto) [place] # (Auto) Eos # (Auto) Baso # (Auto) Immature Gran # (Auto) Sodium Potassium Chloride Carbon Dioxide Anion Gap BUN Creatinine Est Cr Clr Drug Dosing eGFR BUN/Creatinine Ratio Glucose Lactate Calcium Phosphorus Magnesium Albumin Procalcitonin Stl C. diff Tox B Gene Negative Cdiff Gene PG Care Time/CCT Total # of Minutes Spent Total Time Spent with Patient: Total time spent is greater than 50% in coordination of care (as documented) at patient's floor/unit and/or counseling patient: Coding Level of Care Code 47569 SUB INP/OBS CARE 2/35MIN Diagnoses Pancreatitis K85.90 Influenza A J10.1 Hypokalemia E87.6 Hypomagnesemia E83.42
[2024-08-20] MEDS ORDERED: NALOXONE HCL 0.4 MG/1 ML VIAL/CARP IV PRN (20:25)
[2024-08-20] MEDS: HYDROmorphone PCA 30 MG/30 ML IV PRN (22:22)
[2024-08-21] MEDS ORDERED: VANCOMYCIN LEVEL ONE (04:00)
[2024-08-21 06:32] LABS: Basophils # (auto) 0.04 K/uL (0.00-0.20); Basophils % (auto) 0.2 %; Eosinophils # (auto) 0.19 K/uL (0.00-0.50); Eosinophils % (auto) 1.2 %; Hematocrit (blood only) 29.4 % (37.0-47.0); Hemoglobin 9.7 g/dl (12.0-16.0); Immature Granulocytes # (auto) 0.75 K/uL (0.01-0.20); Immature Granulocytes % (auto) 4.7 %; Lymphocytes # (auto) 1.54 K/uL (1.20-3.40); Lymphocytes % (auto) 9.6 %; Mean Corpuscular Hemoglobin 29.5 pg (25.0-34.0); Mean Corpuscular Volume 89.4 fL (80.0-100.0); Mean Platelet Volume 10.6 fL (9.4-12.4); Monocytes # (auto) 1.11 K/uL (0.11-0.59); Monocytes % (auto) 6.9 %; Neutrophils % (auto) 77.4 %; Platelet Count 193 K/uL (130-400); RDW Coefficient of Variation 14.3 % (11.5-14.5); RDW Standard Deviation 46.4 fL (36.4-46.3); Red Blood Count 3.29 M/uL (4.20-5.40); White Blood Count 16.03 K/ul (4.8-10.8)
[2024-08-21 06:55] LABS: BUN Creatinine Ratio 15.1 (10-20); Creatinine Clr Calc Pharmacy 100.6 ml/min; Magnesium 1.9 mg/dl (1.7-2.4); Phosphorus 2.3 mg/dl (2.5-4.9); Potassium 3.4 mmol/L (3.5-5.1)
[2024-08-21] MEDS ORDERED: POTASSIUM PHOS 3 MMOL/1 ML INFUSION IV STA (08:04)
[2024-08-21 08:34] LABS: Albumin Level 2.8 gm/dl (3.4-5.0)
[2024-08-21] MEDS: POTASSIUM PHOSPHATE 30 MMOL in SODIUM CHLORIDE 0.9% 500 ML IV ONE (09:24)
[2024-08-21] MEDS ORDERED: LABETALOL HCL IV 5 MG/ML 20ML IV PRN (14:03)
[2024-08-21] MEDS: HYDROmorphone INJ 1 MG/ML SYRINGE IV PRN (16:37)
--- NOTE | 2024-08-21 17:32 | Hospitalist Progress Note ---
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, acquired pes planovalgus of left foot, hypertension, vitamin D deficiency, vitamin B12 deficiency, peripheral neuropathy, GERD, one episode of non-ETOH, non-gallstone pancreatitis that occurred 28 years ago, and recent diagnosis of acute influenza A infection (08/09/2024) associated with progressive SOB, cough productive of yellow-green phlegm, and sore throat, followed by empiric treatment with Medrol Dosepak and antibiotics, followed by decreased SOB and cough productive of intermittent clear phlegm, who presented to [facility] ER on 08/13/2024 with 24 hours of acute abdominal pain, nausea without vomiting. Patient was subsequently admitted to the inpatient hospitalist service @ [facility] on 08/13/2024 with the following diagnosis: 1. Acute non-ETOH, non-gallstone pancreatitis, most likely precipitated by acute influenza A infection/PNA. #Acute non-ETOH, non-gallstone pancreatitis, subsequently defined as necrotizing pancreatitis - CT abdomen pelvis (08/13/2024, 9:05pm): acute pancreatitis; cf., repeat CT abdomen pelvis (08/15/2024, 9:27am): acute necrotizing pancreatitis, some ascites, no obstruction) - remains NPO, but will trial ice chips and small sips today, advance diet slowly - Admission lipase 9409 U/L (08/13/2024, 8:40pm) has trended down progressively to 2,291 U/L (08/14/2024, 6:39am) to 1,084 U/L (08/15/2024, 6:16am) to 314 U/L (08/16/2024, 7:15am) to almost normal 96 U/L (08/17/2024, 5:54am). - due to significant rise in WBC, rpt CT abd / pelvis obtained which showed necrotizing pancreatitis. Patient was started empirically on zosyn 4.5g IV x 1 dose (08/15/2024, 9:28pm), followed by zosyn 4.5g IV q8 (08/16/2024, 2:15am). - Zofran 4 mg IV every 6 hours as needed - Phenergan 12.5 mg IV every 6 hours needed for nausea vomiting not relieved by Zofran - Pantoprazole 40 mg IV daily - NS on hold as pt started clear liquid diet today (tolerating) - scheduled PO liquid tylenol ATC - Narcan IV per protocol - T hemoglobin A1c: 5.7 - as patient reported no clinical improvement in her 10/10 generalized abdominal pains and her WBC actually increased from 18.69 (08/13/2024, 8:40pm) to 19.59 (08/18/2024, 5:41am), I opted to screen for MRSA (nares)(08/18/2024, 4:38pm). I also started patient empirically on vancomycin 1.75g IV x 1 dose (08/18/2024, 5:00pm), followed by vancomycin 1.25g IV q12 (08/19/2024, 5:00am). - as the patient's reports of generalized abdominal pains remained unchanged on 08/19/2024, I opted to D/C zosyn 4.5g IV q8 (08/16/2024, 2:15am) and in its place, I started patient on meropenem 500mg IV q6 (08/19/2024, 2:13pm). In the interim, in order to provide more effective analgesia in this patient reporting 10/10 generalized abdominal pains on 08/19/2024, I had already discontinued dilaudid 0.2 mg IV to q4h prn moderate pain and dilaudid 0.4 mg IV to q6h prn severe pain and in their place, I started patient on dilaudid 1mg IV q1h prn pain 6-10 on 08/18/2024, 6:09pm. - since this patient was admitted to [facility] on 08/13/2024 with an admission WBC 18.69 (08/13/2024, 8:40pm), patient's WBC has declined to 16.29 (08/20/2024, 5:48am) after starting patient on meropenem 500mg IV q6 (08/19/2024, 2:13pm). Hence, I surmise that zosyn was ineffective in treating patient's acute necrotizing pancreatitis. I also surmise that vancomycin 1.25g IV q12 (08/19/2024, 5:00am) is also ineffective in treating patient's acute necrotizing pancreatitis. Hence, I have opted to D/C vancomycin 1.25g IV q12 on 08/20/2024, after patient received her third dose of vancomycin 1.25g IV q12 on 08/20/2024, 5:24am, while continuing meropenem 500mg IV q6 (08/19/2024, 2:13pm), and I will check vitals, abdominal exam, WBC with differential, lactic acid, and procalcitonin levels in the 08/22/2024 am. cf., WBC 18.69 (08/13/2024, 8:40pm)(admission). cf., WBC 12.60 (08/14/2024, 6:39am). cf., WBC 22.79 (08/15/2024, 6:16am). cf., WBC 19.07 (08/16/2024, 7:15am). cf., WBC 21.34 (08/17/2024, 5:54am). cf., WBC 19.59 (08/18/2024, 5:41am). cf., WBC 19.54 (08/19/2024, 8:35am). cf., WBC 16.29 (08/20/2024, 5:48am). cf., WBC 16.03 (08/21/2024, 6:19am). cf., lactic acid #1 1.2 mmol/L (08/18/2024, 4:54pm). cf., lactic acid #2 1.9 mmol/L (08/19/2024, 8:35am). cf., lactic acid #3 0.7 mmol/L (08/20/2024, 8:08am). cf., lactic acid #4 0.7 mmol/L (08/21/2024, 6:19am). cf., procalcitonin #1 0.22 ng/mL (08/18/2024, 4:54pm). cf., procalcitonin #2 0.24 ng/mL (08/19/2024, 8:35am). cf., procalcitonin #3 0.28 ng/mL (08/20/2024, 8:04am). cf., procalcitonin #4 0.18 ng/mL (08/21/2024, 6:19am). #OIC - senna daily and prn bisacodyl suppository #Influenza A - cont Oseltamivir, last dose 08/18/24 - incentive spirometry #RECURRENT acute hypokalemia cf., K 2.9 mmol/L (08/13/2024, 8:40pm)(admission) cf., K 3.6 mmol/L (08/14/2024, 6:39am) cf., K 4.0 mmol/L (08/15/2024, 6:16am) cf., K 3.3 mmol/L (08/16/2024, 7:15am) cf., K 3.2 mmol/L (08/17/2024, 5:54am) cf., K 3.2 mmol/L (08/17/2024, 4:54pm) cf., K 3.1 mmol/L (08/18/2024, 5:41am) cf., K 3.1 mmol/L (08/19/2024, 8:35am) cf., K 3.0 mmol/L (08/20/2024, 5:48am). cf., K 3.4 mmol/L (08/21/2024, 6:19am). Supplemented with KCl 40meq PO bid x 2 doses (08/20/2024, 9:58am) and acute hypokalemia is RESOLVING, but PERSISTENT. Supplement with KPO4 30mmol IV x 1 dose (08/21/2024, 9:24am) and check post- supplement K level in the 08/21/2024 am. #RECURRENT acute hypophosphatemia cf., PO4 1.2 mg/dL (08/17/2024, 5:54am). cf., PO4 1.4 mg/dL (08/17/2024, 4:54pm). cf., PO4 2.2 mg/dL (08/18/2024, 5:41am). cf., PO4 2.0 mg/dL (08/19/2024, 8:35am). cf., PO4 2.5 mg/dL (08/20/2024, 5:48am). cf., PO4 2.3 mg/dL (08/21/2024, 6:19am). Supplemented with KPO4 21 mmol IV x 1 dose (08/17/2024, 8:38am), KPO4 30 mmol IV x 2 doses (08/18/2024, 9:43am, 4:23pm), KPO4 30 mmol IV x 1 dose (08/19/2024, 2:20pm), and acute hypophosphatemia is RESOLVING, but PERSISTENT. Supplement with KPO4 30 mmol IV x 1 dose (08/21/2024, 9:24am) and check post- supplement PO4 level in the 08/21/2024 am. #Acute hypomagnesemia cf., Mg 1.4 mg/dL (08/13/2024, 8:40pm)(admission) cf., Mg 2.1 mg/dL (08/20/2024, 5:48am) cf., Mg 1.9 mg/dL (08/21/2024, 6:19am). #Hyperglycemia- - Glucose 162 on admission - A1c: 5.7 #GERD- - IV PPI #Chronic medical conditions: - B12 deficiency-temporarily hold supplementation - Vitamin D3 deficiency-temporarily hold supplementation - Peripheral neuropathy-Temporarily hold gabapentin - Hypertension- Temporarily holding losartan, prn labetalol ordered Dispo: pending clinical improvement 08/14: updated pt's daughter 08/15: pt's granddaughter at bedside, also updated pt's daughter via conference call 08/16: pt's daughter at bedside 08/17: pt's daughter at bedside 08/18: pt's daughter and pt's 2 brothers at bedside; everyone concurs with Assessment & Plan above. 08/19: pt's daughter at bedside at bedside; everyone concurs with Assessment & Plan above. 08/20: pt.'s 2 brothers at bedside at bedside; everyone concurs with Assessment & Plan above. 08/21: pt's 2 brothers at bedside at bedside; everyone concurs with Assessment & Plan above. Admission and Anticipated Discharge Date Admission Date: August 13, 2024 Subjective No acute events overnight Not passing flatus or BM since 08/13/2024 (though have not been taking in any oral intake); instead, patient reported eructation on 08/18/2024. Patient reports no eructation on 08/19/2024 or on 08/20/2024. Patient also reports that since administration of zosyn 4.5g IV x 1 dose (08/15/2024, 9:28pm), followed by zosyn 4.5g IV q8 (08/16/2024, 2:15am), patient's 10/10 abdominal pains on 08/19/2024 have decreased to 6/10 abdominal pains on 08/20/2024. Review of Systems Constitutional: Positive for "loopy behavior" after having started dilaudid [employer]TER on 08/20/2024, 8:25pm. Negative for antecedent/coincident fevers, chills, diaphoresis, cough, wheeze, sore throat, hemoptysis, chest pains, palpitations, pleurisy, nausea, vomiting, diarrhea, abdominal pain, pelvic pain, hematemesis, hematochezia, melena, hematuria, dysuria, frequency, urgency, headaches, dizziness, lightheadedness, visual changes, hearing changes, weakness, falls, syncope, trauma, travel history, sick contacts, or food/drug ingestions novel or new. All other review of systems are reported as negative by the patient on 08/21/2024. Physical Exam Constitutional: General: Comfortable, coherent, cooperative. Wide awake and alert. Not confused, lethargic, or obtunded. Patient speaks in complete, fluent, and articulate sentences without pause, interruption, cough, or wheeze. HEENT: Normocephalic, atraumatic. Pupils equally round and reactive to light. Extra-ocular muscles intact. No nystagmus, gaze paresis, anisocoria, miosis, mydriasis, hyphema, scleral injection, conjunctivitis, or pterygium. No rhinorrhea or otorrhea. No pharyngeal discharge or erythema. Neck: Supple, no stridor, bruit, goiter, hepatojugular reflux. Jugular venous pressure is estimated to be 8 cm above the sternal angle of Juan, which is estimated to be 5 cm above the level of the right atrium. Lymph: No anterior/posterior cervical, supraclavicular/infraclavicular, axillary, epitrochlear, or inguinal adenopathy. Chest: Symmetric rise and fall with respirations. Lungs: Clear to auscultation and percussion. No audible expiratory wheeze, egophony, pectoriloquy, increase in tactile fremitus, or flatness/dullness to percussion at the bases. Heart: RRR, S1 and S2 noted. No S3 or S4 summation gallop noted. No tripartite friction rub. Grade II/ early systolic murmur @ LLSB without radiation to the carotids, axilla, or back, and which remains invariant in regards to the respiratory cycle. Abdomen: Soft, non-tender, non-distended. No rebound, guarding, Dillon's sign, or organomegaly. Bowel sounds sounds auscultated in all 4 quadrants. Extremities: No clubbing, cyanosis, or edema. 2+ pedal pulses bilaterally. Skin: No decubitus ulcer, exanthem, or enanthem. Neurology: Alert and oriented to person, place, time, and situation. DTR+ and symmetric. 5/5 motor strength in all 4 extremities, both proximally and distally. No pronator drift. No facial droop. No tremors, tics, or myoclonus. Urology: No jeffery. No urethral discharge. Psychiatry: No suicidal ideation. No homicidal ideation. Results & Data Results & Data Vital Signs (Past 12 Hours) Vital Signs Temp Pulse Pulse Pulse Resp BP BP 08/21/24 16:38 36.9 C 83 18 172/91 H 08/21/24 13:50 89 08/21/24 12:53 36.7 C 90 18 160/96 H 08/21/24 07:51 36.8 C 86 18 156/78 H 08/21/24 07:35 08/21/24 07:24 83 Pulse Ox O2 Del Method O2 Flow Rate 08/21/24 16:38 95 Nasal Cannula 2 08/21/24 13:50 08/21/24 12:53 96 Nasal Cannula 2 08/21/24 07:51 94 Nasal Cannula 2 08/21/24 07:35 Nasal Cannula 2 08/21/24 07:24 Laboratory Results 08/21/24 06:19 WBC 16.03 H RBC 3.29 L Hgb 9.7 L Hct 29.4 L MCV 89.4 MCH 29.5 MCHC 33.0 RDW Std Deviation 46.4 H RDW Coeff of Jerome 14.3 Plt Count 193 MPV 10.6 Immature Gran % (Auto) 4.7 Neut % (Auto) 77.4 Lymph % (Auto) 9.6 [place] % (Auto) 6.9 Eos % (Auto) 1.2 Baso % (Auto) 0.2 Neut # (Auto) 12.40 H Lymph # (Auto) 1.54 [place] # (Auto) 1.11 H Eos # (Auto) 0.19 Baso # (Auto) 0.04 Immature Gran # (Auto) 0.75 H Sodium 143 Potassium 3.4 L Chloride 105 Carbon Dioxide 36 H Anion Gap 2 L BUN 8 Creatinine 0.53 L Est Cr Clr Drug Dosing 100.6 eGFR 97.59 BUN/Creatinine Ratio 15.1 Glucose 136 H Lactate 0.7 Calcium 8.0 L Phosphorus 2.3 L Magnesium 1.9 Albumin 2.8 L Procalcitonin 0.18 PG Care Time/CCT Total # of Minutes Spent Total Time Spent with Patient: Total time spent is greater than 50% in coordination of care (as documented) at patient's floor/unit and/or counseling patient: Coding Level of Care Code 60060 SUB INP/OBS CARE 2/35MIN Diagnoses Pancreatitis K85.90 Influenza A J10.1 Hypokalemia E87.6 Hypomagnesemia E83.42
[2024-08-22 09:12] LABS: Basophils # (auto) 0.04 K/uL (0.00-0.20); Basophils % (auto) 0.2 %; Eosinophils # (auto) 0.18 K/uL (0.00-0.50); Eosinophils % (auto) 1.1 %; Hematocrit (blood only) 30.5 % (37.0-47.0); Immature Granulocytes % (auto) 2.3 %; Lymphocytes # (auto) 1.42 K/uL (1.20-3.40); Lymphocytes % (auto) 8.3 %; Mean Corpuscular Hemoglobin 29.3 pg (25.0-34.0); Mean Corpuscular Hgb Conc 32.8 g/dL (32.0-36.0); Mean Corpuscular Volume 89.4 fL (80.0-100.0); Mean Platelet Volume 10.4 fL (9.4-12.4); Monocytes # (auto) 0.88 K/uL (0.11-0.59); Monocytes % (auto) 5.1 %; Neutrophils # (auto) 14.17 K/uL (1.40-6.50); Platelet Count 206 K/uL (130-400); RDW Coefficient of Variation 14.2 % (11.5-14.5); RDW Standard Deviation 45.8 fL (36.4-46.3); Red Blood Count 3.41 M/uL (4.20-5.40); White Blood Count 17.09 K/ul (4.8-10.8)
[2024-08-22 09:17] LABS: BUN Creatinine Ratio 12.8 (10-20); Calcium 8.2 mg/dl (8.6-10.3); Magnesium 1.7 mg/dl (1.7-2.4); Phosphorus 1.9 mg/dl (2.5-4.9); Potassium 3.9 mmol/L (3.5-5.1)
[2024-08-22] MEDS ORDERED: POTASSIUM PHOS 3 MMOL/1 ML INFUSION IV STA (09:21)
[2024-08-22] MEDS: POTASSIUM PHOSPHATE 30 MMOL in SODIUM CHLORIDE 0.9% 500 ML IV ONE (11:00)
[2024-08-22] MEDS: CLOTRIMAZOLE VAGINAL CR 7 APPLN/45 GM TUBE PV SCH (13:07)
--- NOTE | 2024-08-22 15:20 | Hospitalist Progress Note ---
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, acquired pes planovalgus of left foot, hypertension, vitamin D deficiency, vitamin B12 deficiency, peripheral neuropathy, GERD, one episode of non-ETOH, non-gallstone pancreatitis that occurred 28 years ago, and recent diagnosis of acute influenza A infection (08/09/2024) associated with progressive SOB, cough productive of yellow-green phlegm, and sore throat, followed by empiric treatment with Medrol Dosepak and antibiotics, followed by decreased SOB and cough productive of intermittent clear phlegm, who presented to [facility] ER on 08/13/2024 with 24 hours of acute abdominal pain, nausea without vomiting. Patient was subsequently admitted to the inpatient hospitalist service @ [facility] on 08/13/2024 with the following diagnosis: 1. Acute non-ETOH, non-gallstone pancreatitis, most likely precipitated by acute influenza A infection/PNA. #Acute non-ETOH, non-gallstone pancreatitis, subsequently defined as necrotizing pancreatitis - CT abdomen pelvis (08/13/2024, 9:05pm): acute pancreatitis; cf., repeat CT abdomen pelvis (08/15/2024, 9:27am): acute necrotizing pancreatitis, some ascites, no obstruction) - remains NPO, but will trial ice chips and small sips today, advance diet slowly - Admission lipase 9409 U/L (08/13/2024, 8:40pm) has trended down progressively to 2,291 U/L (08/14/2024, 6:39am) to 1,084 U/L (08/15/2024, 6:16am) to 314 U/L (08/16/2024, 7:15am) to almost normal 96 U/L (08/17/2024, 5:54am). - due to significant rise in WBC, rpt CT abd / pelvis obtained which showed necrotizing pancreatitis. Patient was started empirically on zosyn 4.5g IV x 1 dose (08/15/2024, 9:28pm), followed by zosyn 4.5g IV q8 (08/16/2024, 2:15am). - Zofran 4 mg IV every 6 hours as needed - Phenergan 12.5 mg IV every 6 hours needed for nausea vomiting not relieved by Zofran - Pantoprazole 40 mg IV daily - NS on hold as pt started clear liquid diet today (tolerating) - scheduled PO liquid tylenol ATC - Narcan IV per protocol - T hemoglobin A1c: 5.7 - as patient reported no clinical improvement in her 10/10 generalized abdominal pains and her WBC actually increased from 18.69 (08/13/2024, 8:40pm) to 19.59 (08/18/2024, 5:41am), I opted to screen for MRSA (nares)(08/18/2024, 4:38pm). I also started patient empirically on vancomycin 1.75g IV x 1 dose (08/18/2024, 5:00pm), followed by vancomycin 1.25g IV q12 (08/19/2024, 5:00am). - as the patient's reports of generalized abdominal pains remained unchanged on 08/19/2024, I opted to D/C zosyn 4.5g IV q8 (08/16/2024, 2:15am) and in its place, I started patient on meropenem 500mg IV q6 (08/19/2024, 2:13pm). In the interim, in order to provide more effective analgesia in this patient reporting 10/10 generalized abdominal pains on 08/19/2024, I had already discontinued dilaudid 0.2 mg IV to q4h prn moderate pain and dilaudid 0.4 mg IV to q6h prn severe pain and in their place, I started patient on dilaudid 1mg IV q1h prn pain 6-10 on 08/18/2024, 6:09pm. - since this patient was admitted to [facility] on 08/13/2024 with an admission WBC 18.69 (08/13/2024, 8:40pm), patient's WBC has declined to 16.29 (08/20/2024, 5:48am) after starting patient on meropenem 500mg IV q6 (08/19/2024, 2:13pm). Hence, I surmise that zosyn was ineffective in treating patient's acute necrotizing pancreatitis. I also surmise that vancomycin 1.25g IV q12 (08/19/2024, 5:00am) is also ineffective in treating patient's acute necrotizing pancreatitis. Hence, I have opted to D/C vancomycin 1.25g IV q12 on 08/20/2024, after patient received her third dose of vancomycin 1.25g IV q12 on 08/20/2024, 5:24am, while continuing meropenem 500mg IV q6 (08/19/2024, 2:13pm), and I will check vitals, abdominal exam, WBC with differential, lactic acid, and procalcitonin levels in the 08/23/2024 am. cf., WBC 18.69 (08/13/2024, 8:40pm)(admission). cf., WBC 12.60 (08/14/2024, 6:39am). cf., WBC 22.79 (08/15/2024, 6:16am). cf., WBC 19.07 (08/16/2024, 7:15am). cf., WBC 21.34 (08/17/2024, 5:54am). cf., WBC 19.59 (08/18/2024, 5:41am). cf., WBC 19.54 (08/19/2024, 8:35am). cf., WBC 16.29 (08/20/2024, 5:48am). cf., WBC 16.03 (08/21/2024, 6:19am). cf., WBC 17.09 (08/22/2024, 8:44am). cf., lactic acid #1 1.2 mmol/L (08/18/2024, 4:54pm). cf., lactic acid #2 1.9 mmol/L (08/19/2024, 8:35am). cf., lactic acid #3 0.7 mmol/L (08/20/2024, 8:08am). cf., lactic acid #4 0.7 mmol/L (08/21/2024, 6:19am). cf., lactic acid #5 0.9 mmol/L (08/22/2024, 8:44am). cf., procalcitonin #1 0.22 ng/mL (08/18/2024, 4:54pm). cf., procalcitonin #2 0.24 ng/mL (08/19/2024, 8:35am). cf., procalcitonin #3 0.28 ng/mL (08/20/2024, 8:04am). cf., procalcitonin #4 0.18 ng/mL (08/21/2024, 6:19am). cf., procalcitonin #5 0.13 ng/mL (08/22/2024, 8:44am). #OIC - senna daily and prn bisacodyl suppository #Influenza A - cont Oseltamivir, last dose 08/18/24 - incentive spirometry #PERSISTENT acute hypokalemia cf., K 2.9 mmol/L (08/13/2024, 8:40pm)(admission) cf., K 3.6 mmol/L (08/14/2024, 6:39am) cf., K 4.0 mmol/L (08/15/2024, 6:16am) cf., K 3.3 mmol/L (08/16/2024, 7:15am) cf., K 3.2 mmol/L (08/17/2024, 5:54am) cf., K 3.2 mmol/L (08/17/2024, 4:54pm) cf., K 3.1 mmol/L (08/18/2024, 5:41am) cf., K 3.1 mmol/L (08/19/2024, 8:35am) cf., K 3.0 mmol/L (08/20/2024, 5:48am). cf., K 3.4 mmol/L (08/21/2024, 6:19am). Supplemented with KCl 40meq PO bid x 2 doses (08/20/2024, 9:58am) and acute hypokalemia is PERSISTENT. Supplement with KPO4 30mmol IV x 1 dose (08/21/2024, 9:24am) and check post- supplement K level in the 08/21/2024 am. #PERSISTENT acute hypophosphatemia cf., PO4 1.2 mg/dL (08/17/2024, 5:54am). cf., PO4 1.4 mg/dL (08/17/2024, 4:54pm). cf., PO4 2.2 mg/dL (08/18/2024, 5:41am). cf., PO4 2.0 mg/dL (08/19/2024, 8:35am). cf., PO4 2.5 mg/dL (08/20/2024, 5:48am). cf., PO4 2.3 mg/dL (08/21/2024, 6:19am). cf., PO4 1.9 mg/dL (08/22/2024, 8:44am). Supplemented with KPO4 21 mmol IV x 1 dose (08/17/2024, 8:38am), KPO4 30 mmol IV x 2 doses (08/18/2024, 9:43am, 4:23pm), KPO4 30 mmol IV x 1 dose (08/19/2024, 2:20pm), and acute hypophosphatemia is PERSISTENT. Supplemented with KPO4 30 mmol IV x 1 dose (08/21/2024, 9:24am) and acute hypophosphatemia is PERSISTENT. Supplement with KPO4 30 mmol IV x 1 dose (08/22/2024, 11:00am) and check post-supplement PO4 level in the 08/23/2024 am. #Acute hypomagnesemia cf., Mg 1.4 mg/dL (08/13/2024, 8:40pm)(admission) cf., Mg 2.1 mg/dL (08/20/2024, 5:48am) cf., Mg 1.9 mg/dL (08/21/2024, 6:19am). cf., Mg 1.7 mg/dL (08/22/2024, 8:44am). #Hyperglycemia- - Glucose 162 on admission - A1c: 5.7 #GERD- - IV PPI #Chronic medical conditions: - B12 deficiency-temporarily hold supplementation - Vitamin D3 deficiency-temporarily hold supplementation - Peripheral neuropathy-Temporarily hold gabapentin - Hypertension- Temporarily holding losartan, prn labetalol ordered Dispo: pending clinical improvement 08/14: updated pt's daughter 08/15: pt's granddaughter at bedside, also updated pt's daughter via conference call 08/16: pt's daughter at bedside 08/17: pt's daughter at bedside 08/18: pt's daughter and pt's 2 brothers at bedside; everyone concurs with Assessment & Plan above. 08/19: pt's daughter at bedside at bedside; everyone concurs with Assessment & Plan above. 08/20: pt.'s 2 brothers at bedside; everyone concurs with Assessment & Plan above. 08/21: pt's 2 brothers at bedside; everyone concurs with Assessment & Plan above. 08/22: pt's granddaughter at bedside; everyone concurs with Assessment & Plan above. Admission and Anticipated Discharge Date Admission Date: August 13, 2024 Subjective Patient complains of vaginal itch on 08/22/2024, consistent with acute vulvo- vaginitis, most probably fungal in etiology, and for which, patient has been started on clotrimazole 1% cream vaginal application daily x 14 days (start date/time, 08/22/2024, 1:07pm). Patient also reports that since administration of zosyn 4.5g IV x 1 dose (06/2024, 9:28pm), followed by zosyn 4.5g IV q8 (08/16/2024, 2:15am), patient's 10/10 abdominal pains on 08/19/2024 have decreased to 6/10 abdominal pains on 08/20/2024 - 08/22/2024. Review of Systems Review of Systems: Comprehensive ROS completed Constitutional: Positive for vaginal itch on 08/22/2024, consistent with acute vulvo-vaginitis, most probably fungal in etiology, and for which, patient has been started on clotrimazole 1% cream vaginal application daily x 14 days (start date/time, 08/22/2024, 1:07pm). Positive for "loopy behavior" after having started dilaudid [employer]PER on 08/20/2024, 8:25pm; now with "loopy behavior" resolved after stopping dilaudid [employer] HELPER on 08/21/2024, 4:00pm. Negative for antecedent/coincident fevers, chills, diaphoresis, cough, wheeze, sore throat, hemoptysis, chest pains, palpitations, pleurisy, nausea, vomiting, diarrhea, abdominal pain, pelvic pain, hematemesis, hematochezia, melena, hematuria, dysuria, frequency, urgency, headaches, dizziness, lightheadedness, visual changes, hearing changes, weakness, falls, syncope, trauma, travel history, sick contacts, or food/drug ingestions novel or new. All other review of systems are reported as negative by the patient on 08/22/2024. Physical Exam Constitutional: General: Comfortable, coherent, cooperative. Wide awake and alert. Not confused, lethargic, or obtunded. Patient speaks in complete, fluent, and articulate sentences without pause, interruption, cough, or wheeze. HEENT: Normocephalic, atraumatic. Pupils equally round and reactive to light. Extra-ocular muscles intact. No nystagmus, gaze paresis, anisocoria, miosis, mydriasis, hyphema, scleral injection, conjunctivitis, or pterygium. No rhinorrhea or otorrhea. No pharyngeal discharge or erythema. Neck: Supple, no stridor, bruit, goiter, hepatojugular reflux. Jugular venous pressure is estimated to be 8 cm above the sternal angle of Juan, which is estimated to be 5 cm above the level of the right atrium. Lymph: No anterior/posterior cervical, supraclavicular/infraclavicular, axillary, epitrochlear, or inguinal adenopathy. Chest: Symmetric rise and fall with respirations. Lungs: Clear to auscultation and percussion. No audible expiratory wheeze, egophony, pectoriloquy, increase in tactile fremitus, or flatness/dullness to percussion at the bases. Heart: RRR, S1 and S2 noted. No S3 or S4 summation gallop noted. No tripartite friction rub. Grade II/ early systolic murmur @ LLSB without radiation to the carotids, axilla, or back, and which remains invariant in regards to the respiratory cycle. Abdomen: Soft, non-tender, non-distended. No rebound, guarding, Dillon's sign, or organomegaly. Bowel sounds sounds auscultated in all 4 quadrants. Extremities: No clubbing, cyanosis, or edema. 2+ pedal pulses bilaterally. Skin: No decubitus ulcer, exanthem, or enanthem. Neurology: Alert and oriented to person, place, time, and situation. DTR+ and symmetric. 5/5 motor strength in all 4 extremities, both proximally and distally. No pronator drift. No facial droop. No tremors, tics, or myoclonus. Urology: No jeffery. No urethral discharge. Gynecology: vulvo-vaginal erythema with excoriation, no lichenification. Psychiatry: No suicidal ideation. No homicidal ideation. Results & Data Results & Data Vital Signs (Past 12 Hours) Vital Signs Temp Pulse Pulse Resp BP Pulse Ox O2 Del Method 08/22/24 14:57 86 08/22/24 12:00 37.4 C 80 18 165/91 H 98 Room Air 08/22/24 09:48 Nasal Cannula 08/22/24 07:28 36.8 C 80 18 148/79 H 99 Nasal Cannula 08/22/24 07:16 70 O2 Flow Rate 08/22/24 14:57 08/22/24 12:00 08/22/24 09:48 2 08/22/24 07:28 2 08/22/24 07:16 Laboratory Results 08/22/24 08:44 WBC 17.09 H RBC 3.41 L Hgb 10.0 L Hct 30.5 L MCV 89.4 MCH 29.3 MCHC 32.8 RDW Std Deviation 45.8 RDW Coeff of Jerome 14.2 Plt Count 206 MPV 10.4 Immature Gran % (Auto) 2.3 Neut % (Auto) 83.0 Lymph % (Auto) 8.3 [place] % (Auto) 5.1 Eos % (Auto) 1.1 Baso % (Auto) 0.2 Neut # (Auto) 14.17 H Lymph # (Auto) 1.42 [place] # (Auto) 0.88 H Eos # (Auto) 0.18 Baso # (Auto) 0.04 Immature Gran # (Auto) 0.40 H Sodium 142 Potassium 3.9 Chloride 101 Carbon Dioxide 35 H Anion Gap 6 BUN 6 Creatinine 0.47 L Est Cr Clr Drug Dosing 114.0 eGFR 100.46 BUN/Creatinine Ratio 12.8 Glucose 152 H Lactate 0.9 Calcium 8.2 L Phosphorus 1.9 L Magnesium 1.7 Procalcitonin 0.13 PG Care Time/CCT Total # of Minutes Spent Total Time Spent with Patient: Total time spent is greater than 50% in coordination of care (as documented) at patient's floor/unit and/or counseling patient: Coding Level of Care Code 33667 SUB INP/OBS CARE 2/35MIN Diagnoses Pancreatitis K85.90 Influenza A J10.1 Hypokalemia E87.6 Hypomagnesemia E83.42
[2024-08-23 07:17] LABS: Basophils # (auto) 0.04 K/uL (0.00-0.20); Basophils % (auto) 0.2 %; Eosinophils # (auto) 0.22 K/uL (0.00-0.50); Eosinophils % (auto) 1.2 %; Hematocrit (blood only) 29.2 % (37.0-47.0); Hemoglobin 9.7 g/dl (12.0-16.0); Immature Granulocytes # (auto) 0.22 K/uL (0.01-0.20); Immature Granulocytes % (auto) 1.2 %; Lymphocytes # (auto) 1.47 K/uL (1.20-3.40); Lymphocytes % (auto) 7.9 %; Mean Corpuscular Hemoglobin 29.8 pg (25.0-34.0); Mean Corpuscular Hgb Conc 33.2 g/dL (32.0-36.0); Mean Corpuscular Volume 89.8 fL (80.0-100.0); Mean Platelet Volume 10.8 fL (9.4-12.4); Monocytes # (auto) 0.79 K/uL (0.11-0.59); Monocytes % (auto) 4.3 %; Neutrophils # (auto) 15.81 K/uL (1.40-6.50); Neutrophils % (auto) 85.2 %; Platelet Count 208 K/uL (130-400); RDW Coefficient of Variation 14.1 % (11.5-14.5); RDW Standard Deviation 45.7 fL (36.4-46.3); Red Blood Count 3.25 M/uL (4.20-5.40); White Blood Count 18.55 K/ul (4.8-10.8)
[2024-08-23 07:35] LABS: Calcium 8.3 mg/dl (8.6-10.3); Creatinine Clr Calc Pharmacy 114.9 ml/min; Magnesium 1.7 mg/dl (1.7-2.4); Phosphorus 2.4 mg/dl (2.5-4.9); Potassium 3.9 mmol/L (3.5-5.1)
[2024-08-23] MEDS ORDERED: POTASSIUM PHOS 3 MMOL/1 ML INFUSION IV STA (09:07)
[2024-08-23] MEDS: OPTIRAY 320 100ml IV ONE (10:39)
--- NOTE | 2024-08-23 10:58 | CT Scan Report ---
ABDOMEN AND PELVIS CT WITH IV CONTRAST CT DOSE: 1372.3 mGy.cm HISTORY: abd pain in pt. with acute necrotizing pancreatit TECHNIQUE: Multiaxial CT images of the abdomen and pelvis were performed following the IV administrat ion of 90 cc of Optiray, A dose lowering technique was utilized adhering to the principles of ALARA. COMPARISON STUDY: 08/18/2024 FINDINGS: There are stable small bilateral pleural effusions. ABDOMEN: Stable tiny liver cysts. Gallbladder is surgically absent. Spleen and adrenal glands are unr emarkable. Kidneys show no hydronephrosis. The pancreas is diffusely abnormal with only a small amoun t of the pancreatic head and tail demonstrating normal enhancement. Otherwise the pancreas is diffuse ly hypodense with adjacent fluid surrounding the pancreas, mildly increased. Pelvis: Uterus and adnexa are unremarkable. Stable small amount of low pelvic free fluid. No free air . No bowel inflammation or obstruction. No acute osseous findings. IMPRESSION: 1. Severe pancreatitis with necrosis of the majority of the pancreas. There is fluid surrounding the pancreas, mildly increased. 2. Otherwise as described. ACT 112: Negative or not required by law. The above report was generated using voice recognition software. It may contain grammatical, syntax o r spelling errors. Electronically signed by: Lm White M.D. 08/23/2024 10:56 AM
[2024-08-23] MEDS: POTASSIUM PHOSPHATE 30 MMOL in SODIUM CHLORIDE 0.9% 500 ML IV ONE (10:59)
[2024-08-23] MEDS: POTASSIUM PHOS 3 MMOL/1 ML INFUSION IV STA (11:51)
--- NOTE | 2024-08-23 14:47 | Hospitalist Progress Note ---
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, acquired pes planovalgus of left foot, hypertension, vitamin D deficiency, vitamin B12 deficiency, peripheral neuropathy, GERD, one episode of non-ETOH, non-gallstone pancreatitis that occurred 28 years ago, and recent diagnosis of acute influenza A infection (08/09/2024) associated with progressive SOB, cough productive of yellow-green phlegm, and sore throat, followed by empiric treatment with Medrol Dosepak and antibiotics, followed by decreased SOB and cough productive of intermittent clear phlegm, who presented to [facility] ER on 08/13/2024 with 24 hours of acute abdominal pain, nausea without vomiting. Patient was subsequently admitted to the inpatient hospitalist service @ [facility] on 08/13/2024 with the following diagnosis: 1. Acute non-ETOH, non-gallstone pancreatitis, most likely precipitated by acute influenza A infection/PNA. #Acute non-ETOH, non-gallstone pancreatitis, subsequently defined as necrotizing pancreatitis - CT abdomen pelvis (08/13/2024, 9:05pm): acute pancreatitis; cf., repeat CT abdomen pelvis (08/15/2024, 9:27am): acute necrotizing pancreatitis, some ascites, no obstruction) - remains NPO, but will trial ice chips and small sips today, advance diet slowly - Admission lipase 9409 U/L (08/13/2024, 8:40pm) has trended down progressively to 2,291 U/L (08/14/2024, 6:39am) to 1,084 U/L (08/15/2024, 6:16am) to 314 U/L (08/16/2024, 7:15am) to almost normal 96 U/L (08/17/2024, 5:54am). - due to significant rise in WBC, rpt CT abd / pelvis obtained which showed necrotizing pancreatitis. Patient was started empirically on zosyn 4.5g IV x 1 dose (08/15/2024, 9:28pm), followed by zosyn 4.5g IV q8 (08/16/2024, 2:15am). - Zofran 4 mg IV every 6 hours as needed - Phenergan 12.5 mg IV every 6 hours needed for nausea vomiting not relieved by Zofran - Pantoprazole 40 mg IV daily - NS on hold as pt started clear liquid diet today (tolerating) - scheduled PO liquid tylenol ATC - Narcan IV per protocol - T hemoglobin A1c: 5.7 - as patient reported no clinical improvement in her 10/10 generalized abdominal pains and her WBC actually increased from 18.69 (08/13/2024, 8:40pm) to 19.59 (08/18/2024, 5:41am), I opted to screen for MRSA (nares)(08/18/2024, 4:38pm). I also started patient empirically on vancomycin 1.75g IV x 1 dose (08/18/2024, 5:00pm), followed by vancomycin 1.25g IV q12 (08/19/2024, 5:00am). - as the patient's reports of generalized abdominal pains remained unchanged on 08/19/2024, I opted to D/C zosyn 4.5g IV q8 (08/16/2024, 2:15am) and in its place, I started patient on meropenem 500mg IV q6 (08/19/2024, 2:13pm). In the interim, in order to provide more effective analgesia in this patient reporting 10/10 generalized abdominal pains on 08/19/2024, I had already discontinued dilaudid 0.2 mg IV to q4h prn moderate pain and dilaudid 0.4 mg IV to q6h prn severe pain and in their place, I started patient on dilaudid 1mg IV q1h prn pain 6-10 on 08/18/2024, 6:09pm. - since this patient was admitted to [facility] on 08/13/2024 with an admission WBC 18.69 (08/13/2024, 8:40pm), patient's WBC has declined to 16.29 (08/20/2024, 5:48am) after starting patient on meropenem 500mg IV q6 (08/19/2024, 2:13pm). Hence, I surmise that zosyn was ineffective in treating patient's acute necrotizing pancreatitis. I also surmise that vancomycin 1.25g IV q12 (08/19/2024, 5:00am) is also ineffective in treating patient's acute necrotizing pancreatitis. Hence, I have opted to D/C vancomycin 1.25g IV q12 on 08/20/2024, after patient received her third dose of vancomycin 1.25g IV q12 on 08/20/2024, 5:24am, while continuing meropenem 500mg IV q6 (08/19/2024, 2:13pm), and I will check vitals, abdominal exam, WBC with differential, lactic acid, and procalcitonin levels in the 08/24/2024 am. Await formal General Surgery Service evaluation with Dr. Satya Manrique to evaluate acute non-ETOH, non- gallstone pancreatitis, most likely precipitated by acute influenza A infection/PNA. cf., WBC 18.69 (08/13/2024, 8:40pm)(admission). cf., WBC 12.60 (08/14/2024, 6:39am). cf., WBC 22.79 (08/15/2024, 6:16am). cf., WBC 19.07 (08/16/2024, 7:15am). cf., WBC 21.34 (08/17/2024, 5:54am). cf., WBC 19.59 (08/18/2024, 5:41am). cf., WBC 19.54 (08/19/2024, 8:35am). cf., WBC 16.29 (08/20/2024, 5:48am). cf., WBC 16.03 (08/21/2024, 6:19am). cf., WBC 17.09 (08/22/2024, 8:44am). cf., WBC 18.55 (08/23/2024, 6:52am). cf., lactic acid #1 1.2 mmol/L (08/18/2024, 4:54pm). cf., lactic acid #2 1.9 mmol/L (08/19/2024, 8:35am). cf., lactic acid #3 0.7 mmol/L (08/20/2024, 8:08am). cf., lactic acid #4 0.7 mmol/L (08/21/2024, 6:19am). cf., lactic acid #5 0.9 mmol/L (08/22/2024, 8:44am). cf., lactic acid #6 0.9 mmol/L (08/23/2024, 6:52am). cf., procalcitonin #1 0.22 ng/mL (08/18/2024, 4:54pm). cf., procalcitonin #2 0.24 ng/mL (08/19/2024, 8:35am). cf., procalcitonin #3 0.28 ng/mL (08/20/2024, 8:04am). cf., procalcitonin #4 0.18 ng/mL (08/21/2024, 6:19am). cf., procalcitonin #5 0.13 ng/mL (08/22/2024, 8:44am). cf., procalcitonin #6 0.13 ng/mL (08/23/2024, 6:52am). #OIC - senna daily and prn bisacodyl suppository #Influenza A - cont Oseltamivir, last dose 08/18/24 - incentive spirometry #PERSISTENT acute hypokalemia cf., K 2.9 mmol/L (08/13/2024, 8:40pm)(admission) cf., K 3.6 mmol/L (08/14/2024, 6:39am) cf., K 4.0 mmol/L (08/15/2024, 6:16am) cf., K 3.3 mmol/L (08/16/2024, 7:15am) cf., K 3.2 mmol/L (08/17/2024, 5:54am) cf., K 3.2 mmol/L (08/17/2024, 4:54pm) cf., K 3.1 mmol/L (08/18/2024, 5:41am) cf., K 3.1 mmol/L (08/19/2024, 8:35am) cf., K 3.0 mmol/L (08/20/2024, 5:48am). cf., K 3.4 mmol/L (08/21/2024, 6:19am). cf., K 3.9 mmol/L (08/23/2024, 6:52am). Supplemented with KCl 40meq PO bid x 2 doses (08/20/2024, 9:58am) and acute hypokalemia was PERSISTENT. Supplemented with KPO4 30mmol IV x 1 dose (08/21/2024, 9:24am) and acute hypokalemia RESOLVED. #PERSISTENT acute hypophosphatemia cf., PO4 1.2 mg/dL (08/17/2024, 5:54am). cf., PO4 1.4 mg/dL (08/17/2024, 4:54pm). cf., PO4 2.2 mg/dL (08/18/2024, 5:41am). cf., PO4 2.0 mg/dL (08/19/2024, 8:35am). cf., PO4 2.5 mg/dL (08/20/2024, 5:48am). cf., PO4 2.3 mg/dL (08/21/2024, 6:19am). cf., PO4 1.9 mg/dL (08/22/2024, 8:44am). cf., PO4 2.4 mg/dL (08/23/2024, 6:52am). Supplemented with KPO4 21 mmol IV x 1 dose (08/17/2024, 8:38am), KPO4 30 mmol IV x 2 doses (08/18/2024, 9:43am, 4:23pm), KPO4 30 mmol IV x 1 dose (08/19/2024, 2:20pm), and acute hypophosphatemia is PERSISTENT. Supplemented with KPO4 30 mmol IV x 1 dose (08/21/2024, 9:24am) and acute hypophosphatemia was PERSISTENT. Supplemented with KPO4 30 mmol IV x 1 dose (08/22/2024, 11:00am) is PERSISTENT. Supplement with KPO4 30 mmol IV x 1 dose (08/23/2024, 10:35am) and check post- supplement PO4 level in the 08/24/2024 am. #Acute hypomagnesemia, RESOLVED. cf., Mg 1.4 mg/dL (08/13/2024, 8:40pm)(admission) cf., Mg 2.1 mg/dL (08/20/2024, 5:48am) cf., Mg 1.9 mg/dL (08/21/2024, 6:19am). cf., Mg 1.7 mg/dL (08/22/2024, 8:44am). cf., Mg 1.7 mg/dL (08/23/2024, 6:52am). Check Mg level in the 08/24/2024 am for any recurrence of acute hypomagnesemia. #Hyperglycemia- - glucose 162 mg/dL on admission - glucose 118 mg/dL (08/23/2024, 6:52am). - A1c: 5.7 #GERD- - asymptomatic on protonix 40mg IV qpm #Chronic medical conditions: - B12 deficiency-temporarily hold supplementation - Vitamin D3 deficiency-temporarily hold supplementation - Peripheral neuropathy-Temporarily hold gabapentin - Hypertension- Temporarily holding losartan, prn labetalol ordered Dispo: pending clinical improvement 08/14: updated pt's daughter 08/15: pt's granddaughter at bedside, also updated pt's daughter via conference call 08/16: pt's daughter at bedside 08/17: pt's daughter at bedside 08/18: pt's daughter and pt's 2 brothers at bedside; everyone concurs with Assessment & Plan above. 08/19: pt's daughter at bedside at bedside; everyone concurs with Assessment & Plan above. 08/20: pt.'s 2 brothers at bedside; everyone concurs with Assessment & Plan above. 08/21: pt's 2 brothers at bedside; everyone concurs with Assessment & Plan above. 08/22: pt's granddaughter at bedside; everyone concurs with Assessment & Plan above. 08/23: pt's granddaughter at bedside; everyone concurs with Assessment & Plan above. Admission and Anticipated Discharge Date Admission Date: August 13, 2024 Subjective Patient complained of vaginal itch on 08/22/2024, consistent with acute vulvo- vaginitis, most probably fungal in etiology, and for which, patient has been started on clotrimazole 1% cream vaginal application daily x 14 days (start date/time, 08/22/2024, 1:07pm). Patient also reports that since administration of zosyn 4.5g IV x 1 dose (08/15/2024, 9:28pm), followed by zosyn 4.5g IV q8 (08/16/2024, 2:15am), patient's 10/10 abdominal pains on 08/19/2024 have decreased to 6/10 abdominal pains on 08/20/2024 - 08/23/2024. Review of Systems Constitutional: Positive for vaginal itch on 08/22/2024, consistent with acute vulvo-vaginitis, most probably fungal in etiology, and for which, patient has been started on clotrimazole 1% cream vaginal application daily x 14 days (start date/time, 08/22/2024, 1:07pm). Positive for "loopy behavior" after having started dilaudid FOOD STYLIST on 08/20/2024, 8:25pm; now with "loopy behavior" resolved after stopping dilaudid FOOD STYLIST on 08/21/2024, 4:00pm. Negative for antecedent/coincident fevers, chills, diaphoresis, cough, wheeze, sore throat, hemoptysis, chest pains, palpitations, pleurisy, nausea, vomiting, diarrhea, abdominal pain, pelvic pain, hematemesis, hematochezia, melena, hematuria, dysuria, frequency, urgency, headaches, dizziness, lightheadedness, visual changes, hearing changes, weakness, falls, syncope, trauma, travel history, sick contacts, or food/drug ingestions novel or new. All other review of systems are reported as negative by the patient on 08/23/2024. Physical Exam Constitutional: General: Comfortable, coherent, cooperative. Wide awake and alert. Not confused, lethargic, or obtunded. Patient speaks in complete, fluent, and articulate sentences without pause, interruption, cough, or wheeze. HEENT: Normocephalic, atraumatic. Pupils equally round and reactive to light. Extra-ocular muscles intact. No nystagmus, gaze paresis, anisocoria, miosis, mydriasis, hyphema, scleral injection, conjunctivitis, or pterygium. No rhinorrhea or otorrhea. No pharyngeal discharge or erythema. Neck: Supple, no stridor, bruit, goiter, hepatojugular reflux. Jugular venous pressure is estimated to be 8 cm above the sternal angle of Juan, which is estimated to be 5 cm above the level of the right atrium. Lymph: No anterior/posterior cervical, supraclavicular/infraclavicular, axillary, epitrochlear, or inguinal adenopathy. Chest: Symmetric rise and fall with respirations. Lungs: Clear to auscultation and percussion. No audible expiratory wheeze, egophony, pectoriloquy, increase in tactile fremitus, or flatness/dullness to percussion at the bases. Heart: RRR, S1 and S2 noted. No S3 or S4 summation gallop noted. No tripartite friction rub. Grade II/ early systolic murmur @ LLSB without radiation to the carotids, axilla, or back, and which remains invariant in regards to the respiratory cycle. Abdomen: Soft, non-tender, non-distended. No rebound, guarding, Dillon's sign, or organomegaly. Bowel sounds sounds auscultated in all 4 quadrants. Extremities: No clubbing, cyanosis, or edema. 2+ pedal pulses bilaterally. Skin: No decubitus ulcer, exanthem, or enanthem. Neurology: Alert and oriented to person, place, time, and situation. DTR+ and symmetric. 5/5 motor strength in all 4 extremities, both proximally and distally. No pronator drift. No facial droop. No tremors, tics, or myoclonus. Urology: No ejffery. No urethral discharge. Gynecology: vulvo-vaginal erythema with excoriation, no lichenification. Psychiatry: No suicidal ideation. No homicidal ideation. Results & Data Results & Data Vital Signs (Past 12 Hours) Vital Signs Temp Pulse Pulse Resp BP Pulse Ox O2 Del Method 08/23/24 13:49 85 08/23/24 11:57 Nasal Cannula 08/23/24 11:17 36.8 C 81 20 172/84 H 93 Room Air 08/23/24 08:22 37.0 C 83 18 160/83 H 94 Room Air 08/23/24 07:13 85 08/23/24 04:31 37.0 C 86 20 154/80 H 92 Room Air O2 Flow Rate 08/23/24 13:49 08/23/24 11:57 2 08/23/24 11:17 08/23/24 08:22 08/23/24 07:13 08/23/24 04:31 Laboratory Results 08/23/24 08/23/24 09:20 06:52 WBC 18.55 H RBC 3.25 L Hgb 9.7 L Hct 29.2 L MCV 89.8 MCH 29.8 MCHC 33.2 RDW Std Deviation 45.7 RDW Coeff of Jerome 14.1 Plt Count 208 MPV 10.8 Immature Gran % (Auto) 1.2 Neut % (Auto) 85.2 Lymph % (Auto) 7.9 [place] % (Auto) 4.3 Eos % (Auto) 1.2 Baso % (Auto) 0.2 Neut # (Auto) 15.81 H Lymph # (Auto) 1.47 [place] # (Auto) 0.79 H Eos # (Auto) 0.22 Baso # (Auto) 0.04 Immature Gran # (Auto) 0.22 H Sodium 139 Potassium 3.9 Chloride 100 Carbon Dioxide 34 H Anion Gap 5 BUN 6 Creatinine 0.46 L Est Cr Clr Drug Dosing 114.9 eGFR 100.98 BUN/Creatinine Ratio 13.0 Glucose 118 H Lactate 0.9 Calcium 8.3 L Phosphorus 2.4 L Magnesium 1.7 Albumin 3.0 L Procalcitonin 0.[address] abd/pelvis with IV contrast #1 (08/13/2024, 9:05pm): 1. ABDOMEN: Liver: No mass. Gallbladder and bile ducts: The patient is status post cholecystectomy. No significant ductal dilation. Pancreas: The pancreas is enlarged and inhomogeneous. There are surrounding inflammatory changes and fluid which extend down into the left colic gutter.. Spleen: No splenomegaly. Adrenals: No mass. Kidneys and ureters: No hydronephrosis. There are small rounded lucencies within the kidneys. Stomach and bowel: There is a small hiatal hernia. There is air and fluid within the stomach. The colon is relatively decompressed. 2. PELVIS: Appendix: Unremarkable CT scan appearance noted the appendix.. Bladder: No calculi are noted within the bladder.. Reproductive: Unremarkable as visualized. 3. ABDOMEN and PELVIS: Intraperitoneal space: No free air. Bones/joints: There are some degenerative changes in the spine.. Soft tissues: Unremarkable. Vasculature: No abdominal aortic aneurysm. Lymph nodes: No enlarged lymph nodes. CT abd/pelvis with IV contrast #2 (08/15/2024, 9:27am): 1. Findings consistent with acute necrotizing pancreatitis. Nonenhancement of the majority of the pancreatic parenchyma consistent with pancreatic necrosis. No peripancreatic fluid collections. Increase in peripancreatic inflammation and fluid extending into the mesentery, anterior pararenal spaces and pelvis, as described above. These findings will be called/faxed to ordering provider at time of dictation. 2. Interval development of small bilateral pleural effusions. Associated lower lobe airspace opacities favor atelectasis. 3. Hepatic steatosis. 4. No biliary ductal dilatation status post cholecystectomy. 5. Wall thickening of the descending colon with adjacent stranding. This is likely secondary to pancreatitis or underdistention. A nonspecific colitis could appear similar. CT abd/pelvis with IV contrast #3 (08/18/2024, 12:38pm): 1. Small bilateral pleural effusions have increased in size prior CT. Associated lower lobe opacities favor atelectasis. 2. No pneumatosis, free air or portal venous gas. There is no biliary ductal dilatation status post cholecystectomy. Spleen, adrenal glands and kidneys are unremarkable with exception of several subcentimeter bilateral renal lesions. Mild gastric wall thickening is noted. Significantly diminished enhancement of the pancreatic body, tail and portions of the head is unchanged since CT of August 15, 2024. Residual enhancement within the uncinate process and pancreatic tail is unchanged. There is no gas within the pancreas or peripancreatic tissues. Peripancreatic fluid extending into the mesentery and anterior pararenal spaces has slightly decreased in volume since prior CT. Associated pelvic fluid has decreased. A 5.6 x 1.7 cm peripancreatic pocket of fluid within the mesentery on image 140 of 365 has minimal peripheral enhancement. This enhancement has developed since prior CT. No well-defined fluid collections are present. There is no evidence for a bowel obstruction. Major vasculature is patent. A 2.3 cm oval-shaped enhancing focus within the left lower quadrant on image 303 may represent a venous varix. CT abd/pelvis with IV contrast #4 (08/23/2024, 9:55am): 1. Stable small bilateral pleural effusions. 2. ABDOMEN: Stable tiny liver cysts. Gallbladder is surgically absent. Spleen and adrenal glands are unremarkable. Kidneys show no hydronephrosis. The pancreas is diffusely abnormal with only a small amount of the pancreatic head and tail demonstrating normal enhancement. Otherwise the pancreas is diffusely hypodense with adjacent fluid surrounding the pancreas, mildly increased. 3. Pelvis: Uterus and adnexa are unremarkable. Stable small amount of low pelvic free fluid. No free air. No bowel inflammation or obstruction. No acute osseous findings. PG Care Time/CCT Total # of Minutes Spent Total Time Spent with Patient: Total time spent is greater than 50% in coordination of care (as documented) at patient's floor/unit and/or counseling patient: Coding Level of Care Code 45323 SUB INP/OBS CARE 2/35MIN Diagnoses Pancreatitis K85.90 Influenza A J10.1 Hypokalemia E87.6 Hypomagnesemia E83.42
[2024-08-23] MEDS ORDERED: VANCOMYCIN CONSULT ACTIVE PRN (15:44)
[2024-08-23 16:16] LABS: Bilirubin Direct 0.1 mg/dl (0-0.2); Bilirubin,Total 0.7 mg/dl (0.2-1.0)
--- NOTE | 2024-08-23 16:59 | Pharmacy Report ---
Pharmacy PK ABX Note - Date of Service August 23, 2024 - Assessment and Plan Assessment 74 year old F receiving Vancomycin + Meropenem for GI vs pulm infection. * Day #1 of Vancomycin + Day #4 of Meropenem. Was previously on Vancomycin and Zosyn during this admission. * No growth in any cultures to date. Afebrile. Persistent leukocytosis, 18.8k today. SCr 0.46 today. Plan Vancomycin * Loading dose: 1750 mg IV x 1 * Maintenance dose: 1250 mg IV every 12 hours * Regimen is predicted to achieve target AUC/KERLINE of 400-600 mg/L.hr * Random level ordered for: 08/25/24 Pharmacy will continue to follow and will adjust dose/frequency as necessary. Thank you. Pharmacy has transitioned to AUC monitoring for vancomycin. AUC/KERLINE is the preferred PK/PD target and is associated with decreased risk of nephrotoxicity compared to traditional trough targets.
[2024-08-23] MEDS ORDERED: Nursing to Pharmacy Communication SCH (17:30)
[2024-08-23] MEDS: VANCOMYCIN HCL 1,750 MG in SODIUM CHLORIDE 0.9% 500 ML IV ONE (17:52)
--- NOTE | 2024-08-23 19:39 | Magnetic Resonance Report ---
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 COMPARISON: 08/18/2024 CT abdomen FINDINGS: Liver: Enlarged in size, measuring 19 cm in CC dimension. A few tiny cyst-like structures in both lobes. Homogeneous signal intensity on T2-weighted images. No focal hepatic lesions. Gallbladder: Surgically absent. Bile Ducts: Intrahepatic and extrahepatic bile ducts are normal in caliber. Common bile duct is normal in caliber with no evidence of strictures or filling defects. Pancreas: Heterogeneous signal abnormalities and diffuse necrotizing inflammatory changes with ill-defined contours of the pancreas are noted. There is fluid-like loculation in the anterior aspect of the pancreatic head (extending into peripancreatic fat planes) measuring 4.3x2.4 cm next to the duodenum 2nd segment. At this level, the border between the duodenum 2nd part is obscured and wall thickness is decreased (loss of valvular conniventes) with layering fluid in the lumen and suspected signal void area extraluminal location (might be air). Pancreatic Duct: A blind prominent ductal segment, without connection to the main pancreatic canal, is noted at the pancreatic head level. Spleen: Normal size and appearance. Homogeneous signal intensity. Kidneys: Normal size, shape, and position of both kidneys. Homogeneous signal intensity on T2-weighted images. No renal stones, masses, or hydronephrosis. Adrenal Glands: Normal size and morphology bilaterally. No adrenal masses. Surrounding Structures: Perihepatic, periduodenal free fluid and bilateral pleural effusion (mild to moderate) with passive atelectatic changes are noted. IMPRESSION: 1. Status post-cholecystectomy. No biliary tree obstruction. 2. The imaging reveals significant diffuse pancreatic necrotizing inflammatory changes, along with a loculated fluid collection (4.3 x 2.4 cm) at the anterior aspect of the pancreatic head, consistent with necrotic fluid accumulation or abscess formation. Clinical correlation is essential, as these findings align with previous imaging results. 3. A prominent blind segment of the pancreatic duct, disconnected from the main pancreatic canal at the level of the pancreatic head. 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 4. Ill-defined fat planes between the pancreatic head and the second part of the duodenum, combined with decreased wall thickness, layered luminal fluid, and a subtle extra-luminal signal void area. These findings may suggest a fistula connecting the second part of the duodenum and the pancreatic fluid collection. A dedicated contrast-enhanced CT scan is advised if clinically warranted. 5. Bilateral pleural effusions and free fluid in the perihepatic and periduodenal areas are also noted (stable) Electronically signed by Rick Dumont 08-23-2024 7:38 PM
[2024-08-23] MEDS: CYANOCOBALAMIN 1000 MCG/ML VIAL IM ONE (20:54)
[2024-08-24] MEDS: VANCOMYCIN HCL 1,250 MG in SODIUM CHLORIDE 0.9% 250 ML IV SCH (05:49)
[2024-08-24 06:11] LABS: Basophils # (auto) 0.04 K/uL (0.00-0.20); Basophils % (auto) 0.2 %; Eosinophils # (auto) 0.19 K/uL (0.00-0.50); Eosinophils % (auto) 1.1 %; Hematocrit (blood only) 28.3 % (37.0-47.0); Hemoglobin 9.6 g/dl (12.0-16.0); Immature Granulocytes # (auto) 0.19 K/uL (0.01-0.20); Immature Granulocytes % (auto) 1.1 %; Lymphocytes # (auto) 1.42 K/uL (1.20-3.40); Lymphocytes % (auto) 8.3 %; Mean Corpuscular Hemoglobin 29.6 pg (25.0-34.0); Mean Corpuscular Hgb Conc 33.9 g/dL (32.0-36.0); Mean Corpuscular Volume 87.3 fL (80.0-100.0); Mean Platelet Volume 11.1 fL (9.4-12.4); Monocytes # (auto) 0.89 K/uL (0.11-0.59); Monocytes % (auto) 5.2 %; Neutrophils # (auto) 14.45 K/uL (1.40-6.50); Neutrophils % (auto) 84.1 %; Platelet Count 228 K/uL (130-400); RDW Coefficient of Variation 14.1 % (11.5-14.5); RDW Standard Deviation 44.5 fL (36.4-46.3); Red Blood Count 3.24 M/uL (4.20-5.40); White Blood Count 17.18 K/ul (4.8-10.8)
[2024-08-24 06:19] LABS: Albumin Level 2.8 gm/dl (3.4-5.0); BUN Creatinine Ratio 11.1 (10-20); Bilirubin Direct 0.1 mg/dl (0-0.2); Bilirubin,Total 0.7 mg/dl (0.2-1.0); Calcium 8.4 mg/dl (8.6-10.3); Creatinine Clr Calc Pharmacy 116.1 ml/min; Magnesium 1.7 mg/dl (1.7-2.4); Phosphorus 3.1 mg/dl (2.5-4.9); Total Protein 5.7 gm/dl (6.0-8.3)
[2024-08-24 07:12] VITALS: RESP 18
[2024-08-24] MEDS: ACETAMINOPHEN 500 MG TAB PO PRN (08:10)
--- NOTE | 2024-08-24 11:00 | Surgery Consultation ---
Date of Consultation August 24, 2024 Assessment & Plan (1) Pancreatic necrosis: (2) Acute upper abdominal pain: Plan 74 yo female with history of severe pancreatitis (likely secondary to gallstones 28 years ago with subsequent cholecystectomy) presented to ED on 08/13/24 with epigastric abdominal pain, nausea, vomiting similar to episode of pancreatitis 28 years ago with confirmed pancreatitis on CT scan. repeat imaging now showing necrotizing pancreatitis with MRCP showing pancreatic fluid collection measuring 4.3 x 2.4 cm with possible fistula to duodenum and discontinuity of the pancreatic duct. No acute surgical indication, relative soft, mildly distended and tenderness in the RUQ to epigastrium on examination but no peritonitis, rigidity, or rebound. Discussed with patient her most recent imaging findings and may need transfer to tertiary center for either IR or advanced gastroenterology with endoscopic drainage and additional procedures. Discussed with hospitalist team recommendation for transfer to tertiary center. Continue current medical management. Need to consider IV nutrition. Dr. Manrique has seen and examined pt, agrees with above. History of Present Illness Reason for Consultation: Necrotizing pancreatitis Requesting Physician: MD Abisai Attending Physician: Paige Manley MD History of Present Illness Patient is a 74 year old female with a past medical history including left Achilles tendon contracture, acquired pes planovalgus of left foot, hypertension, vitamin D deficiency, vitamin B12 deficiency, peripheral neuropathy, and GERD who presented to the emergency department on 08/13/24 with complaints of acute abdominal pain, nausea without vomiting, that felt similar to previous occurrence of pancreatitis that occurred [address] confirmed pancreatitis. She also tested positive for Flu A. She has had continued abdominal pain and nausea with pain medication and dry heaves but no vomiting. states she feels bloated and pressure in the upper abdomen. No real improvement since she has been here. Only on liquids since admission. She had repeat CT done 08/23/24 showing Severe pancreatitis with necrosis of the majority of the pancreas. There is fluid surrounding the pancreas, mildly increased. She then underwent MRCP 08/23, which showed 4.3 x 2.4 cm fluid collection near head of pancreas with possible fistula to the duodenum and discontinuity of the pancreatic duct. WBC 17 (18K) and lactate normal. Allergies Allergy/AdvReac Type Severity Reaction Status Date / Time duloxetine AdvReac Intermediate Nausea & Verified 09/16/23 08:23 abdominal pain oxycodone AdvReac Intermediate abdominal Verified 09/16/23 08:23 pain Home Medications Medication Instructions Recorded Confirmed Type chlorthalidone 25 mg tablet 12.5 mg PO HS 01/25/21 08/14/24 History cholecalciferol (vitamin D3) 25 25 mcg PO HS 01/25/21 08/14/24 History mcg (1,000 unit) capsule (Vitamin D3) cyanocobalamin (vitamin B-12) 1,000 mcg subcut MONTHLY 01/25/21 08/14/24 History 1,000 mcg/mL injection solution loratadine 10 mg tablet 10 mg PO UD 01/25/21 08/14/24 History amlodipine 10 mg tablet 10 mg PO DAILY 09/16/23 08/14/24 History gabapentin 100 mg capsule 200 mg PO QAM 09/16/23 08/14/24 History gabapentin 300 mg capsule 500 mg PO HS 09/16/23 08/14/24 History losartan 50 mg tablet 100 mg PO DAILY 09/16/23 08/14/24 History meloxicam 7.5 mg tablet 7.5 mg PO BID 09/16/23 08/14/24 History pantoprazole 20 mg tablet,delayed 20 mg PO UD 09/16/23 08/14/24 History release (Protonix) levocetirizine 5 mg tablet 2.5 mg PO UD 08/14/24 08/14/24 History rosuvastatin 5 mg tablet 5 mg PO DAILY 08/14/24 08/14/24 History Patient History Medical History 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 Hypertension Surgical History Hx of lumpectomy benign (left) History of repair of rotator cuff left S/P epidural steroid injection History of colonoscopy History of esophagogastroduodenoscopy (EGD) History of cholecystectomy History of cataract surgery bilateral History of ankle surgery right ankle reconstruction Family History Other No family history of adverse response to anesthesia Social History Smoking Status: Never smoker Second Hand Exposure: Yes (hx); Do You Dip or Chew Tobacco: No; Hx Alcohol Use: No Hx Substance Use: No Preferred Language: Gibraltarian Communication Ability: Effective Neurology Physician Assistant Required: No Beliefs That Will Affect Care: None marital status: Current Living Situation: Spouse and Family How many Children do You have: 2 Feels Safe at Home: Yes Assistive Devices: Walker Physical Exam Constitutional: WD/WN, vitals as above + obese, cooperative and comfortable; no acute distress and not ill appearing sitting up in bedside chair upon entering room Respiratory: normal respiratory effort; no respiratory distress and no labored breathing Gastrointestinal (Abdomen): Inspection/Auscultation: + abdomen distended (upper abdomen) Percussion/Palpation: + abdomen tender (RUQ on deep palpation) and abdomen soft; no guarding, abdomen not rigid and abdomen not firm Skin: no rashes, warm and dry no jaundice Psychiatric: Orientation: alert and oriented x 3 Results & Data Vital Signs (Past 12 Hours) Vital Signs Temp Pulse Pulse Resp BP Pulse Ox O2 Del Method 08/24/24 07:12 36.8 C 87 18 154/87 H 95 Room Air 08/24/24 06:45 80 08/24/24 04:15 36.6 C 85 16 169/82 H 94 Room Air 08/23/24 23:32 37.5 C 87 16 163/85 H 91 Room Air Laboratory Results 08/24/24 08/24/24 08/23/24 Range/Units 05:41 05:36 09:20 WBC 17.18 H (4.8-10.8) K/ul RBC 3.24 L (4.20-5.40) M/uL Hgb 9.6 L (12.0-16.0) g/dl Hct 28.3 L (37.0-47.0) % MCV 87.3 (80.0-100.0) fL MCH 29.6 (25.0-34.0) pg MCHC 33.9 (32.0-36.0) g/dL RDW Std Deviation 44.5 (36.4-46.3) fL RDW Coeff of [place] 14.1 (11.5-14.5) % Plt Count 228 (130-400) K/uL MPV 11.1 (9.4-12.4) fL Immature Gran % (Auto) 1.1 % Neut % (Auto) 84.1 % Lymph % (Auto) 8.3 % [place] % (Auto) 5.2 % Eos % (Auto) 1.1 % Baso % (Auto) 0.2 % Neut # (Auto) 14.45 H (1.40-6.50) K/uL Lymph # (Auto) 1.42 (1.20-3.40) K/uL [place] # (Auto) 0.89 H (0.11-0.59) K/uL Eos # (Auto) 0.19 (0.00-0.50) K/uL Baso # (Auto) 0.04 (0.00-0.20) K/uL Immature Gran # (Auto) 0.19 (0.01-0.20) K/uL Sodium 139 (136-145) mmol/L Potassium 4.0 (3.5-5.1) mmol/L Chloride 100 (98-107) mmol/L Carbon Dioxide 30 (21-32) mmol/L Anion Gap 9 (3-11) BUN 5 L (6-23) mg/dl Creatinine 0.45 L (0.6-1.2) mg/dl Est Cr Clr Drug Dosing 116.1 ml/min eGFR 101.52 BUN/Creatinine Ratio 11.1 (10-20) Glucose 106 H (70-99(Fasting)) mg/dl Lactate 0.7 (0.4-2.0) mmol/L Calcium 8.4 L (8.6-10.3) mg/dl Phosphorus 3.1 (2.5-4.9) mg/dl Magnesium 1.7 (1.7-2.4) mg/dl Total Bilirubin 0.7 0.7 (0.2-1.0) mg/dl Direct Bilirubin 0.1 0.1 (0-0.2) mg/dl AST 17 20 (13-39) U/L ALT 10 13 (7-52) U/L Alkaline Phosphatase 88 108 H (34-104) U/L Total Protein 5.7 L 6.0 (6.0-8.3) gm/dl Albumin 2.8 L 3.0 L (3.4-5.0) gm/dl Amylase 38 43 (25-115) U/L Lipase 31 40 (11-82) U/L Procalcitonin 0.10 (0-0.5) ng/ml Diagnostic Findings MR MRCP 08/23/24 CLINICAL HISTORY: S/p lap sandra, 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 COMPARISON: 08/18/2024 CT abdomen FINDINGS: Liver: Enlarged in size, measuring 19 cm in CC dimension. A few tiny cyst-like structures in both lobes. Homogeneous signal intensity on T2-weighted images. No focal hepatic lesions. Gallbladder: Surgically absent. Bile Ducts: Intrahepatic and extrahepatic bile ducts are normal in caliber. Common bile duct is normal in caliber with no evidence of strictures or filling defects. Pancreas: Heterogeneous signal abnormalities and diffuse necrotizing inflammatory changes with ill-defined contours of the pancreas are noted. There is fluid-like loculation in the anterior aspect of the pancreatic head (extending into peripancreatic fat planes) measuring 4.3x2.4 cm next to the duodenum 2nd segment. At this level, the border between the duodenum 2nd part is obscured and wall thickness is decreased (loss of valvular conniventes) with layering fluid in the lumen and suspected signal void area extraluminal location (might be air). Pancreatic Duct: A blind prominent ductal segment, without connection to the main pancreatic canal, is noted at the pancreatic head level. Spleen: Normal size and appearance. Homogeneous signal intensity. Kidneys: Normal size, shape, and position of both kidneys. Homogeneous signal intensity on T2-weighted images. No renal stones, masses, or hydronephrosis. Adrenal Glands: Normal size and morphology bilaterally. No adrenal masses. Surrounding Structures: Perihepatic, periduodenal free fluid and bilateral pleural effusion (mild to moderate) with passive atelectatic changes are noted. IMPRESSION: 1. Status post-cholecystectomy. No biliary tree obstruction. 2. The imaging reveals significant diffuse pancreatic necrotizing inflammatory changes, along with a loculated fluid collection (4.3 x 2.4 cm) at the anterior aspect of the pancreatic head, consistent with necrotic fluid accumulation or abscess formation. Clinical correlation is essential, as these findings align with previous imaging results. 3. A prominent blind segment of the pancreatic duct, disconnected from the main pancreatic canal at the level of the pancreatic head. 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 4. Ill-defined fat planes between the pancreatic head and the second part of the duodenum, combined with decreased wall thickness, layered luminal fluid, and a subtle extra-luminal signal void area. These findings may suggest a fistula connecting the second part of the duodenum and the pancreatic fluid collection. A dedicated contrast-enhanced CT scan is advised if clinically warranted. 5. Bilateral pleural effusions and free fluid in the perihepatic and periduodenal areas are also noted (stable) ABDOMEN AND PELVIS CT WITH IV CONTRAST 08/23/2024 CT DOSE: 1372.3 mGy.cm HISTORY: abd pain in pt. with acute necrotizing pancreatit TECHNIQUE: Multiaxial CT images of the abdomen and pelvis were performed following the IV administration of 90 cc of Optiray, A dose lowering technique was utilized adhering to the principles of ALARA. COMPARISON STUDY: 08/18/2024 FINDINGS: There are stable small bilateral pleural effusions. ABDOMEN: Stable tiny liver cysts. Gallbladder is surgically absent. Spleen and adrenal glands are unremarkable. Kidneys show no hydronephrosis. The pancreas is diffusely abnormal with only a small amount of the pancreatic head and tail demonstrating normal enhancement. Otherwise the pancreas is diffusely hypodense with adjacent fluid surrounding the pancreas, mildly increased. Pelvis: Uterus and adnexa are unremarkable. Stable small amount of low pelvic free fluid. No free air. No bowel inflammation or obstruction. No acute osseous findings. IMPRESSION: 1. Severe pancreatitis with necrosis of the majority of the pancreas. There is fluid surrounding the pancreas, mildly increased. 2. Otherwise as described.
[2024-08-24] MEDS ORDERED: TPN/PPN CONSULT PHARMACY PRN (11:11)
--- NOTE | 2024-08-24 11:12 | Gastrointestinal Consultation ---
Date of Consultation August 24, 2024 Assessment & Plan (1) Pancreatic necrosis: Patient is a 74 year old female who was admitted with pancreatitis. Most recent imaging suggestive of severe pancreatitis with necrosis of the majority of the pancreas. 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 I reviewed with Dr. Armijo, in light of these findings, would recommend transfer to a tertiary center. I reached out to Dr. Manley of the primary hospitalist team with these recommendations. Supervising Physician Co-Signing Physician Notes I personally saw and examined the patient. I have reviewed the chart and agree with the documentation provided by the MARKET RESEARCHER including discussion about the assessment, treatment and plan. Briefly, 74 year old female with a past medical history including left Achilles tendon contracture, acquired pes planovalgus of left foot, hypertension, vitamin D deficiency, vitamin B12 deficiency, peripheral neuropathy, and GERD who presented to the emergency department on 08/13/24 with complaints of acute abdominal pain, nausea without vomiting, that felt similar to previous occurrence of pancreatitis that occurred 28 years ago. no etoh use. Initial CT confirmed pancreatitis. She also tested positive for Flu A. Since her admission, she tells me she has not been able to feel better. She has had continued abdominal pain that she tells me is worse with eating. rated 8/10. no further nausea. no emesis. rest of GI ros are unremarkable. She had repeat CT done 08/23/24 showing Severe pancreatitis with necrosis of the majority of the pancreas. There is fluid surrounding the pancreas, mildly increased. She then underwent MRCP 08/23, see below. MRCP 08/23/24 1. Status post-cholecystectomy. No biliary tree obstruction. 2. The imaging reveals significant diffuse pancreatic necrotizing inflammatory changes, along with a loculated fluid collection (4.3 x 2.4 cm) at the anterior aspect of the pancreatic head, consistent with necrotic fluid accumulation or abscess formation. Clinical correlation is essential, as these findings align with previous imaging results. 3. A prominent blind segment of the pancreatic duct, disconnected from the main pancreatic canal at the level of the pancreatic head. 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 4. Ill-defined fat planes between the pancreatic head and the second part of the duodenum, combined with decreased wall thickness, layered luminal fluid, and a subtle extra-luminal signal void area. These findings may suggest a fistula connecting the second part of the duodenum and the pancreatic fluid collection. A dedicated contrast-enhanced CT scan is advised if clinically warranted. Given findings of a possible pancreatic ductal disruption pancreatic fluid collection and necrosis, I would suggest transfer to a tertiary care center. She is at risk for prolonged complicated course. For now n.p.o. IV fluids 150- 200 cc per hour and pain control History of Present Illness Reason for Consultation: acute necrotizing pancreatitis s/p Influenza A Requesting Physician: Ernie Barone MD Attending Physician: Paige Manley MD History of Present Illness Patient is a 74 year old female with a past medical history including left Achilles tendon contracture, acquired pes planovalgus of left foot, hypertension, vitamin D deficiency, vitamin B12 deficiency, peripheral neuropathy, and GERD who presented to the emergency department on 08/13/24 with complaints of acute abdominal pain, nausea without vomiting, that felt similar to previous occurrence of pancreatitis that occurred 28 years ago. no etoh use. Initial CT confirmed pancreatitis. She also tested positive for Flu A. Since her admission, she tells me she has not been able to feel better. She has had continued abdominal pain that she tells me is worse with eating. rated 8/10. no further nausea. no emesis. rest of GI ros are unremarkable. She had repeat CT done 08/23/24 showing Severe pancreatitis with necrosis of the majority of the pancreas. There is fluid surrounding the pancreas, mildly increased. She then underwent MRCP 08/23, see below. MRCP 08/23/24 1. Status post-cholecystectomy. No biliary tree obstruction. 2. The imaging reveals significant diffuse pancreatic necrotizing inflammatory changes, along with a loculated fluid collection (4.3 x 2.4 cm) at the anterior aspect of the pancreatic head, consistent with necrotic fluid accumulation or abscess formation. Clinical correlation is essential, as these findings align with previous imaging results. 3. A prominent blind segment of the pancreatic duct, disconnected from the main pancreatic canal at the level of the pancreatic head. 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 4. Ill-defined fat planes between the pancreatic head and the second part of the duodenum, combined with decreased wall thickness, layered luminal fluid, and a subtle extra-luminal signal void area. These findings may suggest a fistula connecting the second part of the duodenum and the pancreatic fluid collection. A dedicated contrast-enhanced CT scan is advised if clinically warranted. 5. Bilateral pleural effusions and free fluid in the perihepatic and periduodenal areas are also noted (stable) Allergies Allergy/AdvReac Type Severity Reaction Status Date / Time duloxetine AdvReac Intermediate Nausea & Verified 09/16/23 08:23 abdominal pain oxycodone AdvReac Intermediate abdominal Verified 09/16/23 08:23 pain Home Medications Medication Instructions Recorded Confirmed Type chlorthalidone 25 mg tablet 12.5 mg PO HS 01/25/21 08/14/24 History cholecalciferol (vitamin D3) 25 25 mcg PO HS 01/25/21 08/14/24 History mcg (1,000 unit) capsule (Vitamin D3) cyanocobalamin (vitamin B-12) 1,000 mcg subcut MONTHLY 01/25/21 08/14/24 History 1,000 mcg/mL injection solution loratadine 10 mg tablet 10 mg PO UD 01/25/21 08/14/24 History amlodipine 10 mg tablet 10 mg PO DAILY 09/16/23 08/14/24 History gabapentin 100 mg capsule 200 mg PO QA 09/16/23 08/14/24 History gabapentin 300 mg capsule 500 mg PO HS 09/16/23 08/14/24 History losartan 50 mg tablet 100 mg PO DAILY 09/16/23 08/14/24 History meloxicam 7.5 mg tablet 7.5 mg PO BID 09/16/23 08/14/24 History pantoprazole 20 mg tablet,delayed 20 mg PO UD 09/16/23 08/14/24 History release (Protonix) levocetirizine 5 mg tablet 2.5 mg PO UD 08/14/24 08/14/24 History rosuvastatin 5 mg tablet 5 mg PO DAILY 08/14/24 08/14/24 History Patient History Medical History 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 Hypertension Surgical History Hx of lumpectomy benign (left) History of repair of rotator cuff left S/P epidural steroid injection History of colonoscopy History of esophagogastroduodenoscopy (EGD) History of cholecystectomy History of cataract surgery bilateral History of ankle surgery right ankle reconstruction Family History Other No family history of adverse response to anesthesia Social History Smoking Status: Never smoker Second Hand Exposure: Yes (hx); Do You Dip or Chew Tobacco: No; Hx Alcohol Use: No Hx Substance Use: No Preferred Language: Zimbabwean Communication Ability: Effective Export Documents Clerk Required: No Beliefs That Will Affect Care: None marital status: Current Living Situation: Spouse and Family How many Children do You have: 2 Feels Safe at Home: Yes Assistive Devices: Walker Review of Systems Review of Systems: All systems reviewed & are unremarkable except as noted in HPI & below Physical Exam Constitutional: WD/WN, vitals as above Respiratory: normal respiratory effort, lungs clear to auscultation Cardiovascular: Rate/Rhythm: regular rate and regular rhythm Gastrointestinal (Abdomen): RUQ tenderness to palpation, no guarding, soft. normal bowel sounds. Psychiatric: Orientation: alert and oriented x 3 Results & Data Vital Signs (Past 12 Hours) Vital Signs Temp Pulse Pulse Resp BP Pulse Ox O2 Del Method 08/24/24 07:12 98.2 F 87 18 154/87 H 95 Room Air 08/24/24 06:45 80 08/24/24 04:15 97.9 F 85 16 169/82 H 94 Room Air 08/23/24 23:32 99.5 F 87 16 163/85 H 91 Room Air Coding Level of Care Code 98289 INT INP/OBS CARE 2/55MIN Diagnoses Pancreatic necrosis K86.89
--- NOTE | 2024-08-24 15:40 | Hospitalist Progress Note ---
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, acquired pes planovalgus of left foot, hypertension, vitamin D deficiency, vitamin B12 deficiency, peripheral neuropathy, GERD, one episode of non-ETOH, non-gallstone pancreatitis that occurred 28 years ago, and recent diagnosis of acute influenza A infection (08/09/2024) associated with progressive SOB, cough productive of yellow-green phlegm, and sore throat, followed by empiric treatment with Medrol Dosepak and antibiotics, followed by decreased SOB and cough productive of intermittent clear phlegm, who presented to [facility] ER on 08/13/2024 with 24 hours of acute abdominal pain, nausea without vomiting. Acute necrotizing pancreatitis: MRCP was done which showed evidence of pancreatic fluid collection measuring 4 x 2 cm with fistula collection from the duodenum to the pancreatic fluid collection. GI and surgery both in agreement that patient needs to be transferred. Patient has been accepted at [facility], pending bed availability Patient will need IR drainage of the fluid Continue IV meropenem for now Keep n.p.o., will start PPN if patient is not transferred by tomorrow #OIC - senna daily and prn bisacodyl suppository #Influenza A - cont Oseltamivir, last dose 08/18/24 - incentive spirometry #Hyperglycemia- - glucose 162 mg/dL on admission - A1c: 5.7 -Continue to monitor glucose #GERD- - asymptomatic on protonix 40mg IV qpm #Chronic medical conditions: - B12 deficiency-temporarily hold supplementation - Vitamin D3 deficiency-temporarily hold supplementation - Peripheral neuropathy-Temporarily hold gabapentin - Hypertension- Temporarily holding losartan, prn labetalol ordered Dispo: Accepted at [facility], pending bed availabilityt Admission and Anticipated Discharge Date Admission Date: August 13, 2024 Subjective Patient seen and examined, complains of only mild abdominal pain, unable to tolerate diet Review of Systems Review of Systems: All systems reviewed are negative, apart from the ones contained in the history. Physical Exam Physical Exam: The patient is awake, alert and oriented 3, well developed and well nourished, normocephalic and atraumatic, lying in bed and in no acute distress. HEENT--PERRL, EOMI, mucous membranes and oropharynx mildly dry Neck--supple. No JVD. No bruits. Thyroid normal, trachea midline, no adenopathy. Heart--normal S1 and S2. No murmurs, rubs or gallops. Lungs--clear bilaterally, no respiratory distress, no accessory muscle use. Abdomen--normal bowel sounds and soft. Extremities--no cyanosis or clubbing. No edema. Dermatologic--normal skin turgor, normal color, no abnormal lymph nodes, no rash. Neurologic--cranial nerves II through XII grossly intact. Rheumatologic--normal range of motion. Psychiatric--normal affect. Results & Data Results & Data Vital Signs (Past 12 Hours) Vital Signs Temp Pulse Pulse Resp BP BP Pulse Ox 08/24/24 15:36 97.9 F 86 18 165/97 H 94 08/24/24 11:18 98.1 F 83 18 149/90 H 96 08/24/24 07:12 98.2 F 87 18 154/87 H 95 08/24/24 06:45 80 08/24/24 04:15 97.9 F 85 16 169/82 H 94 O2 Del Method 08/24/24 15:36 Room Air 08/24/24 11:18 Room Air 08/24/24 07:12 Room Air 08/24/24 06:45 08/24/24 04:15 Room Air PG Care Time/CCT Total # of Minutes Spent Total Time Spent with Patient: Total time spent is greater than 50% in coordination of care (as documented) at patient's floor/unit and/or counseling patient: Coding Level of Care Code 65274 SUB INP/OBS CARE 2/35MIN Diagnoses Pancreatitis K85.90 Influenza A J10.1 Hypokalemia E87.6 Hypomagnesemia E83.42 Time Spent (min) 35
[2024-08-24 19:53] VITALS: BP 155/84; PULSE 82; TEMP 98.4; O2SAT 93
[2024-08-25] MEDS ORDERED: VANCOMYCIN LEVEL ONE (05:00)
--- NOTE | 2024-08-26 14:15 | Discharge Summary ---
Date of Service August 24, 2024 Admission HPI Per Admitting Provider The patient is a 74-year-old female with a past medical history including left Achilles tendon contracture, acquired pes planovalgus of left foot, hypertension, vitamin D deficiency, vitamin B12 deficiency, peripheral n europathy, and GERD. The patient presents to the emergency department with 24 hours of acute abdominal pain, nausea without vomiting, similar to previous occurrence of pancreatitis that occurred 28 years ago. She reports decreased oral intake during this interval, and has had decreased oral intake since being diagnosed with influenza A 4 days ago. She reports that she did get started on a Medrol Dosepak and antibiotic 4 days ago, with no significant change in shortness of breath, but has had improvement in mucus production is noted. With that, she has had a sore throat, intermittently productive cough, initially of yellow-green mucus, and more recently intermittently clear as well. From the emergency department the patient received the following: Dilaudid 0.5 mg IV every 15 minutes, Zofran 4 mg IV, normal saline 500 mL bolus, then 125 mL/h, and potassium chloride 10 mill equivalent rider. Significant abnormalities include potassium 2.9, magnesium 1.4 and glucose 162. Admission Exam (Per Admitting) Constitutional The patient is awake, alert and oriented 3, well developed and well nourished, normocephalic and atraumatic, lying in bed and in no acute distress. HEENT--PERRL, EOMI, mucous membranes and oropharynx mildly dry Neck--supple. No JVD. No bruits. Thyroid normal, trachea midline, no adenopat hy. Heart--normal S1 and S2. No murmurs, rubs or gallops. Lungs--clear bilaterally, no respiratory distress, no accessory muscle use. Abdomen--normal bowel sounds and soft. Extremities--no cyanosis or clubbing. No edema. Dermatologic--normal skin turgor, normal color, no abnormal lymph nodes, no rash. Neurologic--cranial nerves II through XII grossly intact. Rheumatologic--normal range of motion. Psychiatric--normal affect. 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, acquired pes planovalgus of left foot, hypertension, vitamin D deficiency, vitamin B12 deficiency, per ipheral neuropathy, GERD, one episode of non-ETOH, non-gallstone pancreatitis that occurred 28 years ago, and recent diagnosis of acute influenza A infection (08/09/2024) associated with progressive SOB, cough productive of yellow-green phlegm, and sore throat, followed by empiric treatment with Medrol Dosepak and antibiotics, followed by decreased SOB and cough productive of intermittent clear phlegm, who presented to [facility] on 08/13/2024 with 24 hours of acute abdominal pain, nausea without vomiting. Acute necrotizing pancreatitis: MRCP was done which showed evidence of pancreatic fluid collection measuring 4 x 2 cm with fistula collection from the duodenum to the pancreatic fluid collection. GI and surgery both in agreement that patient needs to be transferred. Patient has been accepted at [facility], pending bed availability Patient will need IR drainage of the fluid Continue IV meropenem for now Keep n.p.o., will start PPN if patient is not transferred by tomorrow #OIC - senna daily and prn bisacodyl suppository #Influenza A - cont Oseltamivir, last dose 08/18/24 - incentive spirometry #Hyperglycemia- - glucose 162 mg/dL on admission - A1c: 5.7 -Continue to monitor glucose #GERD- - asymptomatic on protonix 40mg IV qpm #Chronic medical conditions: - B12 deficiency-temporarily hold supplementation - Vitamin D3 deficiency-temporarily hold supplementation - Peripheral neuropathy-Temporarily hold gabapentin - Hypertension- Temporarily holding losartan, prn labetalol ordered Dispo: Accepted at [facility], pending bed availabilityt Coding Level of Care Code 60847 INP/OBS DISCH >30 MIN Diagnoses Pancreatitis K85.90 Influenza A J10.1 Hypokalemia E87.6 Hypomagnesemia E83.42 Time Spent (min) 35
== END 2024-08-24 21:36 | disposition short-term general hospital (02) | DRG 440 ==
LOC: SUATTDRO → ED 20:26 → SUATTDRO 23:56 → EDINP 08-14 → SUATTDRO 08-14 → EDINP 08-14 16:53 → 2N 08-14 19:01 → 2S 08-15 02:04 → 2N 08-16 22:48